=== PATIENT | female | born 2000 | race Hispanic/Latino ===

== ENCOUNTER 2022-01-05 18:10 | Emergency (ER) | payer OTHER ==
[2022-01-05 18:53] LABS: Urine Blood Negative (Negative); Urine Glucose Negative (Negative); Urine Protein Negative (Negative); Urine Specific Gravity >=1.030 (1.005-1.030); Urine pH 6.5 (5.0-7.0)
[2022-01-05 19:10] LABS: Absolute Lymphocytes (CBC) 1.4 K/uL (0.7-4.9); Hematocrit 37.5 % (36.0-45.0); Lymphocytes % 30.6 % (15.3-44.8); MCV 75.2 fL (80-100); MPV 7.7 fL (7.6-11.3); RBC Red Blood Cell Count 4.99 M/uL (3.86-4.86)
[2022-01-05 19:28] LABS: Potassium 3.8 mmol/L (3.5-5.1)
--- NOTE | 2022-01-05 21:07 | RAD REPORT ---
EXAM DESCRIPTION: US - Transvaginal OB - 01/05/2022 8:45 pm CLINICAL HISTORY: VAGINAL BLEEDING COMPARISON: None TECHNIQUE: Endovaginal sonography performed. FINDINGS: Preliminary findings were provided at time of the study. Uterus is retroflexed. In the fundal portion of the endometrial cavity there is a normal shaped gesta tional sac. A single intrauterine gestation is seen. pole is identified with crown-rump length corresponding to 7 week 1 day age. The heart rate is 145 BPM. No intrauterine hematoma or suspicious finding. Both ovaries are identified and unremarkable. No blood or fluid in the cul de sac. IMPRESSION: Single 7 week 1 day IUP. Calculated MINE is 08/23/2022 Heart rate is normal. No intrauterine hematoma or mass. No adnexal abnormality.
[2022-01-05 21:53] LABS: Urine Bacteria <20 /HPF (<20); Urine RBC <5 /HPF (NONE SEEN)
--- NOTE | 2022-01-05 23:28 | EDPHYS ---
Physician Documentation [facility] Name: Harsh Blanco Age: 21 yrs Sex: Female : 2000 Arrival Date: 01/05/2022 Time: 18:13 Bed 13 Private MD: Kristyn Johnson ED Physician Luciano Dillon HPI: 01/05 18:38 This 21 yrs old Female presents to ER via Ambulatory with complaints of pm1 Vaginal Bleeding, + Preg <12wks. 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 pm1 18:38 The patient presents to the emergency department with vaginal bleeding, described as pm1 spotting. The estimated gestational age is 7 weeks. 18:38 course: care: private OB physician, Ultrasound: the patient had an pm1 ultrasound, which was normal. Previous pregnancies: in previous pregnancies patient has had no complications. Associated signs and symptoms: Pertinent negatives: abdominal pain, dysuria, nausea, vomiting. 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 - Social history:: Smoking status: Patient denies any tobacco usage or history of. ROS: 18:38 Constitutional: Negative for fever, chills, and weight loss, Cardiovascular: Negative pm1 for chest pain, palpitations, and edema, Respiratory: Negative for shortness of breath, cough, wheezing, and pleuritic chest pain, Abdomen/GI: Negative for abdominal pain, nausea, vomiting, diarrhea, and constipation. 18:38 MS/Extremity: Negative for injury and deformity, Skin: Negative for injury, rash, and discoloration. 18:38 : Positive for vaginal bleeding, Negative for urinary symptoms. 18:38 All other systems are negative. Exam: 18:38 Constitutional: This is a well developed, well nourished patient who is awake, alert, pm1 and in no acute distress. Head/Face: Normocephalic, atraumatic. 18:38 Back: No spinal tenderness. No costovertebral tenderness. Full range of motion. Skin: Warm, dry with normal turgor. Normal color with no rashes, no lesions, and no evidence of cellulitis. MS/ Extremity: Pulses equal, no cyanosis. Neurovascular intact. Full, normal range of motion. 18:38 Cardiovascular: Exam negative for acute changes, Rate: normal, Rhythm: regular, Pulses: no pulse deficits are appreciated, Heart sounds: normal. 18:38 Respiratory: Exam negative for acute changes, respiratory distress, shortness of breath. 18:38 Abdomen/GI: Inspection: abdomen appears normal, Palpation: abdomen is soft and non-tender, in all quadrants. 18:38 Neuro: Exam negative for acute changes, Orientation: is normal, Motor: is normal, moves all fours. Vital Signs: 18:27 BP 124 / 72; Pulse 77; Resp 16; Temp 99.1; Pulse Ox 99% on R/A; Weight 63.96 kg; Height em1 5 ft. 2 in. (157.48 cm); Pain 0/10; 18:37 BP 115 / 73; Pulse 82; Resp 18; Temp 98.3(T); Pulse Ox 100% on R/A; Weight 63.96 kg; senior Height 5 ft. 2 in. (157.48 cm); 23:00 BP 121 / 57; Pulse 57; Resp 16; Pulse Ox 100% ; vc1 18:37 Body Mass Index 25.79 (63.96 kg, 157.48 cm) senior MDM: 18:38 Patient medically screened. pm1 22:51 Data reviewed: vital signs. Data interpreted: Pulse oximetry: on room air is 100 %. pm1 Interpretation: normal. 23:27 Counseling: I had a detailed discussion with the patient and/or guardian regarding: the pm1 historical points, exam findings, and any diagnostic results supporting the discharge/admit diagnosis, lab results, radiology results, the need for outpatient follow up, an OB/Gyne specialist, to return to the emergency department if symptoms worsen or persist or if there are any questions or concerns that arise at home. 01/05 18:38 Order name: Abo/rh Typing pm1 01/05 18:38 Order name: Basic Metabolic Panel; Complete Time: 19:48 pm1 01/05 18:38 Order name: CBC with Diff; Complete Time: 19:17 pm1 01/05 18:38 Order name: Quantitative Hcg; Complete Time: 19:48 pm1 01/05 18:53 Order name: Urine --Ancillary (enter results) eb 01/05 18:54 Order name: Urine Dipstick-Ancillary; Complete Time: 18:57 EDPA 01/05 18:38 Order name: US Transvaginal Ob; Complete Time: 21:11 pm1 01/05 21:15 Order name: Urine Microscopic Only; Complete Time: 22:33 pm1 01/05 21:40 Order name: Rh Typing EDPA 01/05 21:40 Order name: Antibody Screen EDPA 01/05 21:40 Order name: Fetalscreen EDPA 01/05 21:40 Order name: Cord Rh type EDPA 01/05 21:40 Order name: Rhogam EDPA 01/05 22:27 Order name: ABO/RH no charge; Complete Time: 22:33 EDPA 01/05 18:38 Order name: IV Saline Lock; Complete Time: 19:01 pm1 01/05 18:38 Order name: Labs collected and sent; Complete Time: 19:01 pm1 01/05 18:38 Order name: NPO; Complete Time: 19:01 pm1 01/05 18:38 Order name: Urine Dipstick-Ancillary (obtain specimen); Complete Time: 19:01 pm1 01/05 18:38 Order name: Urine Test (obtain specimen); Complete Time: 19:01 pm1 Administered Medications: 22:55 Drug: RhoGAM (Human) 300 mcg Route: IM; Site: right gluteus; vc1 Disposition Summary: 01/05/22 23:27 Discharge Ordered Location: Home pm1 Problem: new pm1 Symptoms: have improved pm1 Condition: Stable pm1 Diagnosis - Threatened pm1 Followup: pm1 - With: Emergency Department - When: As needed - Reason: Worsening of condition Followup: pm1 - With: Private Physician - When: 2 - 3 days - Reason: Recheck today's complaints, Continuance of care, Re-evaluation by your physician Discharge Instructions: - Discharge Summary Sheet pm1 - Threatened Miscarriage pm1 - Activity Restriction During pm1 Forms: - Medication Reconciliation Form pm1 - Thank You Letter pm1 - Antibiotic Education pm1 - Prescription Opioid Use pm1 Signatures: Dispatcher [employer] EDMS Hernandez Jones NP INTEGRATION PROJECT MANAGER pm1 Au-Stager, Mayela, RN RN senior Calcote, Harriett, RN RN vc1
--- NOTE | 2022-01-05 23:28 | ER ---
Nurse's Notes [facility] Name: Harsh Blanco Age: 21 yrs Sex: Female : 2000 Arrival Date: 01/05/2022 Time: 18:13 Bed 13 Private MD: Kristyn Johnson Diagnosis: Threatened Presentation: 01/05 18:37 Chief complaint: Patient states: pt presented to ed reporting vaginal bleeding. about 7 senior week . Coronavirus screen: Vaccine status: Patient reports being unvaccinated. Ebola Screen: Patient denies travel to an Ebola-affected area in the 21 days before illness onset. Initial Sepsis Screen: Does the patient meet any 2 criteria? No. Patient's initial sepsis screen is negative. Does the patient have a suspected source of infection? No. Patient's initial sepsis screen is negative. Risk Assessment: Do you want to hurt yourself or someone else? Patient reports no desire to harm self or others. Onset of symptoms was January 05, 2022. 18:37 Method Of Arrival: Ambulatory senior 18:37 Acuity: FLORINDA 3 senior Triage Assessment: 18:38 General: Appears in no apparent distress. Behavior is calm, cooperative, Smells of. seniro Pain: Denies pain. : Reports vaginal bleeding that is. 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 - Social history:: Smoking status: Patient denies any tobacco usage or history of. Screenin:00 Abuse screen: Denies threats or abuse. Nutritional screening: No deficits noted. vc1 Tuberculosis screening: No symptoms or risk factors identified. Fall Risk None identified. Assessment: 19:00 General: Appears in no apparent distress. comfortable, Behavior is calm, cooperative, vc1 appropriate for age. 19:00 Pain: Denies pain. Neuro: Level of Consciousness is awake, alert, obeys commands, vc1 Oriented to person, place, time, situation, Appropriate for age. Cardiovascular: No deficits noted. Respiratory: Airway is patent Respiratory effort is even, unlabored, Respiratory pattern is regular, symmetrical. GI: No deficits noted. : Reports vaginal bleeding that is spotty. 21:00 Reassessment: No changes from previously documented assessment. Patient and/or family vc1 updated on plan of care and expected duration. Pain level reassessed. 23:38 Reassessment: Patient and/or family updated on plan of care and expected duration. Pain vc1 level reassessed. Patient is alert, oriented x 3, equal unlabored respirations, skin warm/dry/pink. Patient denies pain at this time. Vital Signs: 18:27 BP 124 / 72; Pulse 77; Resp 16; Temp 99.1; Pulse Ox 99% on R/A; Weight 63.96 kg; Height em1 5 ft. 2 in. (157.48 cm); Pain 0/10; 18:37 BP 115 / 73; Pulse 82; Resp 18; Temp 98.3(T); Pulse Ox 100% on R/A; Weight 63.96 kg; senior Height 5 ft. 2 in. (157.48 cm); 23:00 BP 121 / 57; Pulse 57; Resp 16; Pulse Ox 100% ; vc1 18:37 Body Mass Index 25.79 (63.96 kg, 157.48 cm) senior Vitals: 23:33 Heart Tones 7wks. vc1 ED Course: 18:13 Patient arrived in ED. as 18:14 Kristyn Johnson is Private Physician. as 18:37 [facility] pm1 18:37 Luciano Dillon MD is Attending Physician. pm1 18:38 Triage completed. senior 19:00 Arm band placed on right wrist. vc1 19:01 Initial lab(s) drawn, by ut, sent to lab. Inserted saline lock: 20 gauge in right em1 antecubital area, using aseptic technique. Blood collected. 20:47 Transvaginal Ob In Process Unspecified. EDMS 21:21 Harriett Marroquin, MIGUELANGEL is Primary Nurse. vc1 23:33 No provider procedures requiring assistance completed. IV discontinued, intact, vc1 bleeding controlled, No redness/swelling at site. Pressure dressing applied. Administered Medications: 22:55 Drug: RhoGAM (Human) 300 mcg Route: IM; Site: right gluteus; vc1 Medication: 23:37 VIS not applicable for this client. vc1 Outcome: 23:27 Discharge ordered by . pm1 23:33 Discharged to home ambulatory, with family. vc1 23:33 Condition: good 23:33 Discharge instructions given to patient, Instructed on discharge instructions, follow up and referral plans. pelvis rest until f/u with obgyn 23:40 Patient left the ED. vc1 Signatures: Dispatcher [employer] Ursula Stevenson Eric em1 Hernandez Jones, FREELANCE INTERPRETER/TRANSLATOR FREELANCE INTERPRETER/TRANSLATOR pm1 Mayela Robins RN RN Harriett Castro RN RN vc1
[2022-01-06 00:34] VITALS: TEMP 98.3; O2SAT 100
[2022-01-06 00:36] VITALS: BP 121/57
== END 2022-01-05 23:40 | disposition home or self-care (01) ==
LOC: ER 18:10
DX: O20.0 Threatened abortion (principal); N93.8 Other specified abnormal uterine and vaginal bleeding; Z3A.01 Less than 8 weeks gestation of pregnancy
CPT/HCPCS: 85025; 80048; 36415; 86900; 81025; 86901 ×2; 84702; 76817; 96372; 99284; J2790; 81003; 81015

== ENCOUNTER 2023-02-20 20:39 | Emergency (ER) | payer OTHER ==
--- OUTSIDE RECORDS SUMMARY | 2023-02-20 20:44 | XMS REPORT | Continuity of Care Document ---
:2000 Author Organization [facility] [place] [facility] t Address [address] [facility]. [id number] Care Team Providers Name Role Phone Pcp, Patient Does Not Have A Primary Care Physician [phone] SARIKA LOPEZ Attending Clinician Unavailable SARIKA LOPEZ Attending Clinician Unavailable Doctor Unassigned, [place] Attending Clinician Unavailable GUMARO VIEYRA Attending Clinician Unavailable Nurse, [facility] Attending Clinician Unavailable Gumrao Vieyra MD Attending Clinician PO CHENG Attending Clinician Unavailable Po Cheng MD Attending Clinician Vitor Jimenez CRNA Attending Clinician Pob, Adc Lab Main Attending Clinician Unavailable Luz Mckinley PA-C Attending Clinician LUZ MCKINLEY Attending Clinician Unavailable Ultrasound, Ang-Mfm Attending Clinician Unavailable Zahida Meza MD Attending Clinician ROCIO LANDA Attending Clinician Unavailable TERI DOWNEY Attending Clinician Unavailable PO CHENG Admitting Clinician Unavailable Po Cheng MD Admitting Clinician GUMARO VIEYRA Admitting Clinician Unavailable Gumaro Vieyra MD Admitting Clinician Payers Payer Name Policy Type Policy Number Effective Date Expiration Date Clara [employer] [id number] 2022 00:00:00 [place] [id number] 2019 2019 00:00:00 00:00:00 Problems Condition Condition Condition Status Onset Resolution Last Treating Co mments Source Name Details Category Date Date Treatment Clinician Date Vaginal Vaginal Disease Active Univers discharge discharge 4-03 ity of 00:00: [place] [address] Medical Branch BMI BMI Disease Active Univers 25.0-25.9, 25.0-25.9, 4-03 it y of adult adult 00:00: [place] [address] Medical Branch Vaginal Vaginal Disease Active Univers bleeding bleeding 7-08 [place] Short Short Disease Active Univers interval interval 6-27 ity of between between 00:00: [place] pregnancie pregnancie 00 Me dical s s Branch affecting affecting , , antepartum antepartum High risk High risk Disease Active Uni vers , , 6-27 [place] Rh Rh Disease Active Univers negative negative 7-19 ity of state in state in 00:00: [place] antepartum antepartum 00 Me dical period period Branch Encounter Encounter Disease Active Uni vers for for 2-06 [place] of [place] arnulfo arnulfo 00 Medical management management Br anch , , unspecifie unspecifie d type d type Allergies, Adverse Reactions, Alerts Allergy Allergy Status Severity Reaction(s) Onset Inactive Treating Comm ents Source Name Type Date Date Clinician NO KNOWN Drug Active Univers ALLERGIE Class ity of S [facility] Social History Social Habit Start Date Stop Date Quantity Comments Source ASSERTION 2021-11-30 [facility] 00:00:00 [facility] History SDMT University o f Alcohol Comment [place] [facility] Branch History [facility] University o f Alcohol Std [place] Medical Drinks Branch History [facility] o f Alcohol Binge [place] Medic al Branch Exposure to 2022-09-25 2022-10-05 Not sure [facility] SARS-CoV-2 00:00:00 15:12:00 [facility] (event) Branch Tobacco use and 2022-10-05 2022-10-05 Smokeless tobacco Un iversity of exposure 00:00:00 00:00:00 non-user [facility] Alcohol intake 2022-10-05 2022-10-05 Ex-drinker University of 00:00:00 00:00:00 (finding) [facility] History SDOH 2019-06-19 2019-06-19 1 [place] o f Alcohol Frequency 00:00:00 00:00:00 [facility] Sex Assigned At [address] [facility] 00:[facility]:00 00:00:00 [facility] Smoking Status Start Date Stop Date Source Never smoked tobacco [facility] Medications Ordered Filled Start Stop Current Ordering Indication Dosage Frequency Signature Comments Components Source Medication Medication Date Date Medication? Clinician (SIG) Name Name lactic Yes [id number] 1{appli Insert 1 Univers acid-citric 4-03 catorfu Applicator ity of -potassium 00:00: l} ful into [place] (PHEXXI) 00 vagina as Medica l 1.8-1-0.4 % needed Branch Gel (sex). lactic Yes [id number] 1{appli Insert 1 Univers acid-citric 4-03 catorfu Applicator ity of -potassium 00:00: l} ful into [place] (PHEXXI) 00 vagina as Medica l 1.8-1-0.4 % needed Branch Gel (sex). lactic Yes [id number] 1{appli Insert 1 Univers acid-citric 7-14 catorfu Applicator ity of -potassium 00:00: l} ful into [place] (PHEXXI) 00 vagina as Medica l 1.8-1-0.4 % needed Branch Gel (sex). lactic Yes [id number] 1{appli Insert 1 Univers acid-citric 7-14 catorfu Applicator ity of -potassium 00:00: l} ful into [place] (PHEXXI) 00 vagina as Medica l 1.8-1-0.4 % needed Branch Gel (sex). lactic Yes [id number] 1{appli Insert 1 Univers acid-citric 7-14 catorfu Applicator ity of -potassium 00:00: l} ful into [place] (PHEXXI) 00 vagina as Medica l 1.8-1-0.4 % needed Branch Gel (sex). lactic Yes [id number] 1{appli Insert 1 Univers acid-citric 7-14 catorfu Applicator ity of -potassium 00:00: l} ful into [place] (PHEXXI) 00 vagina as Medica l 1.8-1-0.4 % needed Branch Gel (sex). lactic Yes [id number] 1{appli Insert 1 Univers acid-citric 7-14 catorfu Applicator ity of -potassium 00:00: l} ful into [place] (PHEXXI) 00 vagina as Medica l 1.8-1-0.4 % needed Branch Gel (sex). lactic 2022- No [id number] 1{appli Insert 1 Univers acid-citric 7-14 04-03 catorfu Applicator ity of -potassium 00:00: 00:00 [place]PHEXXI[place] :00 vagina as Medica l 1.8-1-0.4 % needed Branch Gel (sex). lactic 2022- No [id number] 1{appli Insert 1 Univers acid-citric 7-14 04-03 catorfu Applicator ity of -potassium 00:00: 00:00 l[place] (PHEXXI[place] 00 :00 vagina as Medica l 1.8-1-0.4 % needed Branch Gel (sex). PNV Yes [id number] Take 1 Univers 102-iron-fo 6-27 TAB-CAP/M2 it y of late-dha 00:00: by mouth [place] (VITAFOL FE 00 daily. Medica l PLUS) 90 mg Branch iron- 1 mg-200 mg Cap PNV 0 Yes [id number] Take 1 Univers 102-iron-fo 6-27 TAB-CAP/M2 it y of late-dha 00:00: by mouth [place] (VITAFOL FE 00 daily. Medica l PLUS) 90 mg Branch iron- 1 mg-200 mg Cap PNV 0 Yes [id number] Take 1 Univers 102-iron-fo 6-27 TAB-CAP/M2 it y of late-dha 00:00: by mouth [place] (VITAFOL FE 00 daily. Medica l PLUS) 90 mg Branch iron- 1 mg-200 mg Cap PNV 0 Yes [id number] Take 1 Univers 102-iron-fo 6-27 TAB-CAP/M2 it y of late-dha 00:00: by mouth [place] (VITAFOL FE 00 daily. Medica l PLUS) 90 mg Branch iron- 1 mg-200 mg Cap PNV 2021-0 Yes [id number] Take 1 Univers 102-iron-fo 6-27 TAB-CAP/M2 it y of late-dha 00:00: by mouth [place] (VITAFOL FE 00 daily. Medica l PLUS) 90 mg Branch iron- 1 mg-200 mg Cap PNV 2021-0 Yes [id number] Take 1 Univers 102-iron-fo 6-27 TAB-CAP/M2 it y of late-dha 00:00: by mouth [place] (VITAFOL FE 00 daily. Medica l PLUS) 90 mg Branch iron- 1 mg-200 mg Cap PNV 2021-0 Yes [id number] Take 1 Univers 102-iron-fo 6-27 TAB-CAP/M2 it y of late-dha 00:00: by mouth [place] (VITAFOL FE 00 daily. Medica l PLUS) 90 mg Branch iron- 1 mg-200 mg Cap PNV 2021-0 Yes [id number] Take 1 Univers 102-iron-fo 6-27 TAB-CAP/M2 it y of late-dha 00:00: by mouth [place] (VITAFOL FE 00 daily. Medica l PLUS) 90 mg Branch iron- 1 mg-200 mg Cap Immunizations Ordered Immunization Filled Immunization Date Status Commen ts Source Name Name Rho (d) Immune 2021-08-13 Completed University of Globulin 00:00:00 [facility] Rho (d) Immune 2021-08-13 Completed University of Globulin 00:00:00 [facility] Rho (d) Immune 2021-08-13 Completed University of Globulin 00:00:00 [facility] Rho (d) Immune 2021-08-13 Completed University of Globulin 00:00:00 [facility] Rho (d) Immune 2021-08-13 Completed University of Globulin 00:00:00 [facility] Rho (d) Immune 2021-08-13 Completed University of Globulin 00:00:00 [facility] Rho (d) Immune 2021-08-13 Completed University of Globulin 00:00:00 [facility] Rho (d) Immune 2021-08-13 Completed University of Globulin 00:00:00 [facility] TDAP 2021-05-27 Completed University of 00:00:00 [place] [facility] Rho (d) Immune 2021-05-27 Completed University of Globulin 00:00:00 [facility] TDAP 2021-05-27 Completed University of 00:00:00 [facility] Branch Rho (d) Immune 2021-05-27 Completed University of Globulin 00:00:00 [facility] Branch TDAP 2021-05-27 Completed University of 00:00:00 [facility] Branch Rho (d) Immune 2021-05-27 Completed University of Globulin 00:00:00 [facility] Branch TDAP 2021-05-27 Completed University of 00:00:00 [facility] Branch Rho (d) Immune 2021-05-27 Completed University of Globulin 00:00:00 [facility] TDAP 2021-05-27 Completed University of 00:00:00 [facility] Rho (d) Immune 2021-05-27 Completed University of Globulin 00:00:00 [facility] TDAP 2021-05-27 Completed University of 00:00:00 [facility] Rho (d) Immune 2021-05-27 Completed University of Globulin 00:00:00 [facility] TDAP 2021-05-27 Completed University of 00:00:00 [facility] Branch Rho (d) Immune 2021-05-27 Completed University of Globulin 00:00:00 [facility] TDAP 2021-05-27 Completed University of 00:00:00 [facility] Branch Rho (d) Immune 2021-05-27 Completed University of Globulin 00:00:00 [facility] Rho (d) Immune 2021-01-22 Completed University of Globulin 00:00:00 [facility] Branch Rho (d) Immune 2021-01-22 Completed University of Globulin 00:00:00 [facility] Branch Rho (d) Immune 2021-01-22 Completed University of Globulin 00:00:00 [facility] Branch Rho (d) Immune 2021-01-22 Completed University of Globulin 00:00:00 [facility] Branch Rho (d) Immune 2021-01-22 Completed University of Globulin 00:00:00 [facility] Branch Rho (d) Immune 2021-01-22 Completed University of Globulin 00:00:00 [facility] Branch Rho (d) Immune 2021-01-22 Completed University of Globulin 00:00:00 [facility] Branch Rho (d) Immune 2021-01-22 Completed University of Globulin 00:00:00 [facility] Rho (d) Immune 2019-06-23 Completed University of Globulin 00:00:00 [facility] Rho (d) Immune 2019-06-23 Completed University of Globulin 00:00:00 [facility] Rho (d) Immune 2019-06-23 Completed University of Globulin 00:00:00 [facility] Rho (d) Immune 2019-06-23 Completed University of Globulin 00:00:00 [facility] Rho (d) Immune 2019-06-23 Completed University of Globulin 00:00:00 [facility] Rho (d) Immune 2019-06-23 Completed University of Globulin 00:00:00 [facility] Rho (d) Immune 2019-06-23 Completed University of Globulin 00:00:00 [facility] Rho (d) Immune 2019-06-23 Completed University of Globulin 00:00:00 [facility] Influenza Virus 2019-06-19 Completed Universit y of Vaccine Quad .5 mL IM 00:00:00 [place] [facility] 6+ MO Branch Influenza Virus 2019-06-19 Completed Universit y of Vaccine 00:00:00 [facility] Influenza Virus 2019-06-19 Completed Universit y of Vaccine [place] .5 mL IM 00:00:00 [place] 6+ MO Branch Influenza Virus 2019-06-19 Completed Universit y of Vaccine 00:00:00 [facility] Influenza Virus 2019-06-19 Completed Universit y of Vaccine Quad .5 mL IM 00:00:00 [place] 6+ MO Branch Influenza Virus 2019-06-19 Completed Universit y of Vaccine 00:00:00 [facility] Influenza Virus 2019-06-19 Completed Universit y of Vaccine Quad .5 mL IM 00:00:00 [place] [facility] 6+ MO Branch Influenza Virus 2019-06-19 Completed Universit y of Vaccine 00:00:00 [facility] Influenza Virus 2019-06-19 Completed Universit y of Vaccine Quad .5 mL IM 00:00:00 [place] [facility] 6+ MO Branch Influenza Virus 2019-06-19 Completed Universit y of Vaccine 00:00:00 [facility] Influenza Virus 2019-06-19 Completed Universit y of Vaccine Quad .5 mL IM 00:00:00 [place] 6+ MO Branch Influenza Virus 2019-06-19 Completed Universit y of Vaccine 00:00:00 [facility] Influenza Virus 2019-06-19 Completed Universit y of Vaccine Quad .5 mL IM 00:00:00 [place] [facility] 6+ MO Branch Influenza Virus 2019-06-19 Completed Universit y of Vaccine 00:00:00 [facility] Influenza Virus 2019-06-19 Completed Universit y of Vaccine Quad .5 mL IM 00:00:00 [place] [facility] 6+ MO Branch Influenza Virus 2019-06-19 Completed Universit y of Vaccine 00:00:00 [facility] HPV 2017-02-11 Completed University of 00:00:00 [facility] Meningococcal 2017-02-11 Completed University of Polysaccharide 00:00:00 [place] Medi anna (groups A, C, Y and Branc h W-135) conjugate vaccine (MCV4P) HPV 2017-02-11 Completed University of 00:00:00 [facility] Meningococcal 2017-02-11 Completed University of Polysaccharide 00:00:00 [place] Medi anna (groups A, C, Y and Branc h W-135) conjugate vaccine (MCV4P) HPV 2017-02-11 Completed University of 00:00:00 [facility] Meningococcal 2017-02-11 Completed University of Polysaccharide 00:00:00 [place] Medi anna (groups A, C, Y and Branc h W-135) conjugate vaccine (MCV4P) HPV 2017-02-11 Completed University of 00:00:00 [facility] Meningococcal 2017-02-11 Completed University of Polysaccharide 00:00:00 [place] Medi anna (groups A, C, Y and Branc h W-135) conjugate vaccine (MCV4P) HPV 2017-02-11 Completed University of 00:00:00 [facility] Meningococcal 2017-02-11 Completed University of Polysaccharide 00:00:00 [place] Medi anna (groups A, C, Y and Branc h W-135) conjugate vaccine (MCV4P) HPV 2017-02-11 Completed University of 00:00:00 [facility] Meningococcal 2017-02-11 Completed University of Polysaccharide 00:00:00 [place] Medi anna (groups A, C, Y and Branc h W-135) conjugate vaccine (MCV4P) HPV9 2017-02-11 Completed University of 00:00:00 [facility] HPV 2017-02-11 Completed University of 00:00:00 [facility] Meningococcal 2017-02-11 Completed University of Polysaccharide 00:00:00 [place] Medi anna (groups A, C, Y and Branc h W-135) conjugate vaccine (MCV4P) HPV9 2017-02-11 Completed University of 00:00:00 [facility] HPV 2017-02-11 Completed University of 00:00:00 [facility] Meningococcal 2017-02-11 Completed University of Polysaccharide 00:00:00 [place] Medi anna (groups A, C, Y and Branc h W-135) conjugate vaccine (MCV4P) HPV9 2017-02-11 Completed University of 00:00:00 [facility] HPV 2011-06-04 Completed University of 00:00:00 [facility] Influenza Virus 2011-06-04 Completed Universit y of Vaccine 00:00:00 [facility] Meningococcal 2011-06-04 Completed University of Polysaccharide 00:00:00 [place] Medi anna (groups A, C, Y and Branc h W-135) conjugate vaccine (MCV4P) TDAP 2011-06-04 Completed University of 00:00:00 [facility] HPV 2011-06-04 Completed University of 00:00:00 [facility] Influenza Virus 2011-06-04 Completed Universit y of Vaccine 00:00:00 [facility] Meningococcal 2011-06-04 Completed University of Polysaccharide 00:00:00 [place] Medi anna (groups A, C, Y and Branc h W-135) conjugate vaccine (MCV4P) TDAP 2011-06-04 Completed University of 00:00:00 [facility] HPV 2011-06-04 Completed University of 00:00:00 [facility] Influenza Virus 2011-06-04 Completed Universit y of Vaccine 00:00:00 [facility] Meningococcal 2011-06-04 Completed University of Polysaccharide 00:00:00 [place] Medi anna (groups A, C, Y and Branc h W-135) conjugate vaccine (MCV4P) TDAP 2011-06-04 Completed University of 00:00:00 [facility] HPV 2011-06-04 Completed University of 00:00:00 [facility] Influenza Virus 2011-06-04 Completed Universit y of Vaccine 00:00:00 [facility] Meningococcal 2011-06-04 Completed University of Polysaccharide 00:00:00 [place] Medi anna (groups A, C, Y and Branc h W-135) conjugate vaccine (MCV4P) TDAP 2011-06-04 Completed University of 00:00:00 [facility] HPV 2011-06-04 Completed University of 00:00:00 [facility] Influenza Virus 2011-06-04 Completed Universit y of Vaccine 00:00:00 [facility] Meningococcal 2011-06-04 Completed University of Polysaccharide 00:00:00 [place] Medi anna (groups A, C, Y and Branc h W-135) conjugate vaccine (MCV4P) TDAP 2011-06-04 Completed University of 00:00:00 [facility] HPV 2011-06-04 Completed University of 00:00:00 [facility] Influenza Virus 2011-06-04 Completed Universit y of Vaccine 00:00:00 [facility] Meningococcal 2011-06-04 Completed University of Polysaccharide 00:00:00 [place] Medi anna (groups A, C, Y and Branc h W-135) conjugate vaccine (MCV4P) TDAP 2011-06-04 Completed University of 00:00:00 [facility] Influenza Virus 2011-06-04 Completed Universit y of Vaccine Nasal 00:00:00 [facility] HPV 2011-06-04 Completed University of 00:00:00 [facility] Influenza Virus 2011-06-04 Completed Universit y of Vaccine 00:00:00 [facility] Meningococcal 2011-06-04 Completed University of Polysaccharide 00:00:00 [place] Medi anna (groups A, C, Y and Branc h W-135) conjugate vaccine (MCV4P) TDAP 2011-06-04 Completed University of 00:00:00 [facility] Influenza Virus 2011-06-04 Completed Universit y of Vaccine Nasal 00:00:00 [facility] HPV 2011-06-04 Completed University of 00:00:00 [facility] Influenza Virus 2011-06-04 Completed Universit y of Vaccine 00:00:00 [facility] Meningococcal 2011-06-04 Completed University of Polysaccharide 00:00:00 [place] Medi anna (groups A, C, Y and Branc h W-135) conjugate vaccine (MCV4P) TDAP 2011-06-04 Completed University of 00:00:00 [facility] Influenza Virus 2011-06-04 Completed Universit y of Vaccine Nasal 00:00:00 [facility] Influenza Virus 2010-05-20 Completed Universit y of Vaccine 00:00:00 [facility] Influenza Virus 2010-05-20 Completed Universit y of Vaccine 00:00:00 [facility] Influenza Virus 2010-05-20 Completed Universit y of Vaccine 00:00:00 [facility] Influenza Virus 2010-05-20 Completed Universit y of Vaccine 00:00:00 [facility] Influenza Virus 2010-05-20 Completed Universit y of Vaccine 00:00:00 [facility] Influenza Virus 2010-05-20 Completed Universit y of Vaccine 00:00:00 [facility] Influenza Virus 2010-05-20 Completed Universit y of Vaccine Nasal 00:00:00 [facility] Influenza Virus 2010-05-20 Completed Universit y of Vaccine 00:00:00 [facility] Influenza Virus 2010-05-20 Completed Universit y of Vaccine Nasal 00:00:00 [facility] Influenza Virus 2010-05-20 Completed Universit y of Vaccine 00:00:00 [facility] Influenza Virus 2010-05-20 Completed Universit y of Vaccine Nasal 00:00:00 [facility] Varicella 2010-04-23 Completed University of (varivax)(chicken 00:00:00 [place] M [facility]ical pox) Branch Varicella 2010-04-23 Completed University of (varivax)(chicken 00:00:00 [place] M [facility] pox) Branch Varicella 2010-04-23 Completed University of (varivax)(chicken 00:00:00 [place] M edical pox) Branch Varicella 2010-04-23 Completed University of (varivax)(chicken 00:00:00 [place] M edical pox) Branch Varicella 2010-04-23 Completed University of (varivax)(chicken 00:00:00 [place] M edical pox) Branch Varicella 2010-04-23 Completed University of (varivax)(chicken 00:00:00 [place] M edical pox) Branch Varicella 2010-04-23 Completed University of (varivax)(chicken 00:00:00 [place] M edical pox) Branch Varicella 2010-04-23 Completed University of (varivax)(chicken 00:00:00 [place] M edical pox) Branch Influenza Virus 2009-04-30 Completed Universit y of Vaccine 00:00:00 [facility] Influenza Virus 2009-04-30 Completed Universit y of Vaccine 00:00:00 [facility] Influenza Virus 2009-04-30 Completed Universit y of Vaccine 00:00:00 [facility] Influenza Virus 2009-04-30 Completed Universit y of Vaccine 00:00:00 [facility] Influenza Virus 2009-04-30 Completed Universit y of Vaccine 00:00:00 [facility] Influenza Virus 2009-04-30 Completed Universit y of Vaccine 00:00:00 [facility] Influenza Virus 2009-04-30 Completed Universit y of Vaccine - Whole 00:00:00 [facility] Influenza Virus 2009-04-30 Completed Universit y of Vaccine 00:00:00 [facility] Influenza Virus 2009-04-30 Completed Universit y of Vaccine - Whole 00:00:00 [facility] Influenza Virus 2009-04-30 Completed Universit y of Vaccine 00:00:00 [facility] Influenza Virus 2009-04-30 Completed Universit y of Vaccine - Whole 00:00:00 [facility] Influenza Virus 2008-08-06 Completed Universit y of Vaccine 00:00:00 [facility] Influenza Virus 2008-08-06 Completed Universit y of Vaccine 00:00:00 [facility] Influenza Virus 2008-08-06 Completed Universit y of Vaccine 00:00:00 [facility] Influenza Virus 2008-08-06 Completed Universit y of Vaccine 00:00:00 [facility] Influenza Virus 2008-08-06 Completed Universit y of Vaccine 00:00:00 [facility] Influenza Virus 2008-08-06 Completed Universit y of Vaccine 00:00:00 [facility] Flu Trivalent 2008-08-06 Completed University of 00:00:00 [facility] Influenza Virus 2008-08-06 Completed Universit y of Vaccine 00:00:00 [facility] Flu Trivalent 2008-08-06 Completed University of 00:00:00 [facility] Influenza Virus 2008-08-06 Completed Universit y of Vaccine 00:00:00 [facility] Flu Trivalent 2008-08-06 Completed University of 00:00:00 [facility] HEPATITIS A 2005-06-03 Completed [facility] 00:00:00 [facility] HEPATITIS A 2005-06-03 Completed University of 00:00:00 [facility] HEPATITIS A 2005-06-03 Completed University of 00:00:00 [facility] HEPATITIS A 2005-06-03 Completed University of 00:00:00 [facility] HEPATITIS A 2005-06-03 Completed University of 00:00:00 [facility] HEPATITIS A 2005-06-03 Completed University of 00:00:00 [facility] HEPATITIS A 2005-06-03 Completed University of 00:00:00 [facility] HEPATITIS A 2005-06-03 Completed University of 00:00:00 [facility] DTAP 2004-10-01 Completed University of 00:00:00 [facility] HEPATITIS A 2004-10-01 Completed University of 00:00:00 [facility] MMR 2004-10-01 Completed University of 00:00:00 [facility] Polio (IPV/OPV) 2004-10-01 Completed Universit y of 00:00:00 [facility] DTAP 2004-10-01 Completed University of 00:00:00 [facility] HEPATITIS A 2004-10-01 Completed University of 00:00:00 [facility] MMR 2004-10-01 Completed University of 00:00:00 [facility] Polio (IPV/OPV) 2004-10-01 Completed Universit y of 00:00:00 [facility] DTAP 2004-10-01 Completed University of 00:00:00 [facility] HEPATITIS A 2004-10-01 Completed University of 00:00:00 [facility] MMR 2004-10-01 Completed University of 00:00:00 [facility] Polio (IPV/OPV) 2004-10-01 Completed Universit y of 00:00:00 [facility] DTAP 2004-10-01 Completed University of 00:00:00 [facility] HEPATITIS A 2004-10-01 Completed University of 00:00:00 [facility] MMR 2004-10-01 Completed University of 00:00:00 [facility] Polio (IPV/OPV) 2004-10-01 Completed Universit y of 00:00:00 [facility] DTAP 2004-10-01 Completed University of 00:00:00 [facility] HEPATITIS A 2004-10-01 Completed University of 00:00:00 [facility] MMR 2004-10-01 Completed University of 00:00:00 [facility] Polio (IPV/OPV) 2004-10-01 Completed Universit y of 00:00:00 [facility] DTAP 2004-10-01 Completed University of 00:00:00 [facility] HEPATITIS A 2004-10-01 Completed University of 00:00:00 [facility] MMR 2004-10-01 Completed University of 00:00:00 [facility] Polio (IPV/OPV) 2004-10-01 Completed Universit y of 00:00:00 [facility] DTaP, Unspecified 2004-10-01 Completed Univers ity of Formulation 00:00:00 [facility] IPV 2004-10-01 Completed University of 00:00:00 [facility] DTAP 2004-10-01 Completed University of 00:00:00 [facility] HEPATITIS A 2004-10-01 Completed University of 00:00:00 [facility] MMR 2004-10-01 Completed University of 00:00:00 [facility] Polio (IPV/OPV) 2004-10-01 Completed Universit y of 00:00:00 [facility] DTaP, Unspecified 2004-10-01 Completed Univers ity of Formulation 00:00:00 [facility] IPV 2004-10-01 Completed University of 00:00:00 [facility] DTAP 2004-10-01 Completed University of 00:00:00 [facility] HEPATITIS A 2004-10-01 Completed University of 00:00:00 [facility] MMR 2004-10-01 Completed University of 00:00:00 [facility] Polio (IPV/OPV) 2004-10-01 Completed Universit y of 00:00:00 [facility] DTaP, Unspecified 2004-10-01 Completed Univers ity of Formulation 00:00:00 [facility] IPV 2004-10-01 Completed University of 00:00:00 [facility] DTAP 2001-10-03 Completed University of 00:00:00 [facility] HIB 4 Dose Schedule 2001-10-03 Completed Unive rsity of 00:00:00 [facility] Varicella 2001-10-03 Completed University of (varivax)(chicken 00:00:00 [place] [facility] DTAP 2001-10-03 Completed University of 00:00:00 [facility] HIB 4 Dose Schedule 2001-10-03 Completed Unive rsity of 00:00:00 [facility] Varicella 2001-10-03 Completed University of (varivax)(chicken 00:00:00 [place] [facility] DTAP 2001-10-03 Completed [facility] of 00:00:00 [facility] HIB 4 Dose Schedule 2001-10-03 Completed Unive rsity of 00:00:00 [facility] Varicella 2001-10-03 Completed University of (varivax)(chicken 00:00:00 [place] [facility] DTAP 2001-10-03 Completed University of 00:00:00 [facility] HIB 4 Dose Schedule 2001-10-03 Completed Unive rsity of 00:00:00 [facility] Varicella 2001-10-03 Completed University of (varivax)(chicken 00:00:00 [place] [facility] DTAP 2001-10-03 Completed University of 00:00:00 [facility] HIB 4 Dose Schedule 2001-10-03 Completed Unive rsity of 00:00:00 [facility] Varicella 2001-10-03 Completed University of (varivax)(chicken 00:00:00 [place] [facility] DTAP 2001-10-03 Completed University of 00:00:00 [facility] HIB 4 Dose Schedule 2001-10-03 Completed Unive rsity of 00:00:00 [facility] Varicella 2001-10-03 Completed University of (varivax)(chicken 00:00:00 [place] [facility] DTaP, Unspecified 2001-10-03 Completed Univers ity of Formulation 00:00:00 [facility] DTAP 2001-10-03 Completed University of 00:00:00 [facility] HIB 4 Dose Schedule 2001-10-03 Completed Unive rsity of 00:00:00 [facility] Varicella 2001-10-03 Completed University of (varivax)(chicken 00:00:00 [place] [facility] DTaP, Unspecified 2001-10-03 Completed Univers ity of Formulation 00:00:00 [facility] DTAP 2001-10-03 Completed University of 00:00:00 [facility] HIB 4 Dose Schedule 2001-10-03 Completed Unive rsity of 00:00:00 [facility] Varicella 2001-10-03 Completed University of (varivax)(chicken 00:00:00 [place] [facility] DTaP, Unspecified 2001-10-03 Completed Univers ity of Formulation 00:00:00 [facility] Hep B, Adol or Pedi 2001-04-18 Completed Unive rsity of Dosage 00:00:00 [facility] MMR 2001-04-18 Completed University of 00:00:00 [facility] Polio (IPV/OPV) 2001-04-18 Completed Universit y of 00:00:00 [facility] Hep B, Adol or Pedi 2001-04-18 Completed Unive rsity of Dosage 00:00:00 [facility] MMR 2001-04-18 Completed University of 00:00:00 [facility] Polio (IPV/OPV) 2001-04-18 Completed Universit y of 00:00:00 [facility] Hep B, Adol or Pedi 2001-04-18 Completed Unive rsity of Dosage 00:00:00 [facility] MMR 2001-04-18 Completed [facility] of 00:00:00 [facility] Polio (IPV/OPV) 2001-04-18 Completed Universit y of 00:00:00 [facility] Hep B, Adol or Pedi 2001-04-18 Completed Unive rsity of Dosage 00:00:00 [facility] MMR 2001-04-18 Completed University of 00:00:00 [facility] Polio (IPV/OPV) 2001-04-18 Completed Universit y of 00:00:00 [facility] Hep B, Adol or Pedi 2001-04-18 Completed Unive rsity of Dosage 00:00:00 [facility] MMR 2001-04-18 Completed University of 00:00:00 [facility] Polio (IPV/OPV) 2001-04-18 Completed Universit y of 00:00:00 [facility] Hep B, Adol or Pedi 2001-04-18 Completed Unive rsity of Dosage 00:00:00 [facility] MMR 2001-04-18 Completed University of 00:00:00 [facility] Polio (IPV/OPV) 2001-04-18 Completed Universit y of 00:00:00 [facility] IPV 2001-04-18 Completed University of 00:00:00 [facility] Hep B, Adol or Pedi 2001-04-18 Completed Unive rsity of Dosage 00:00:00 [facility] MMR 2001-04-18 Completed University of 00:00:00 [facility] Polio (IPV/OPV) 2001-04-18 Completed Universit y of 00:00:00 [facility] IPV 2001-04-18 Completed [facility] of 00:00:00 [facility] Hep B, Adol or Pedi 2001-04-18 Completed Unive rsity of Dosage 00:00:00 [facility] MMR 2001-04-18 Completed [facility] of 00:00:00 [facility] Polio (IPV/OPV) 2001-04-18 Completed Universit y of 00:00:00 [facility] IPV 2001-04-18 Completed [facility] of 00:00:00 [facility] DTAP 2000 Completed University of 00:00:00 [facility] HIB 4 Dose Schedule 2000 Completed Unive rsity of 00:00:00 [facility] DTAP 2000 Completed University of 00:00:00 [facility] HIB 4 Dose Schedule 2000 Completed Unive rsity of 00:00:00 [facility] DTAP 2000 Completed University of 00:00:00 [facility] HIB 4 Dose Schedule 2000 Completed Unive rsity of 00:00:00 [facility] DTAP 2000 Completed University of 00:00:00 [facility] HIB 4 Dose Schedule 2000 Completed Unive rsity of 00:00:00 [facility] DTAP 2000 Completed University of 00:00:00 [facility] HIB 4 Dose Schedule 2000 Completed Unive rsity of 00:00:00 [facility] DTAP 2000 Completed University of 00:00:00 [facility] HIB 4 Dose Schedule 2000 Completed Unive rsity of 00:00:00 [facility] DTaP, Unspecified 2000 Completed Univers ity of Formulation 00:00:00 [facility] DTAP 2000 Completed University of 00:00:00 [facility] HIB 4 Dose Schedule 2000 Completed Unive rsity of 00:00:00 [facility] DTaP, Unspecified 2000 Completed Univers ity of Formulation 00:00:00 [facility] DTAP 2000 Completed University of 00:00:00 [facility] HIB 4 Dose Schedule 2000 Completed Unive rsity of 00:00:00 [facility] DTaP, Unspecified 2000 Completed Univers ity of Formulation 00:00:00 [facility] DTAP 2000 Completed University of 00:00:00 [facility] HIB 4 Dose Schedule 2000 Completed Unive rsity of 00:00:00 [facility] Hep B, Adol or Pedi 2000 Completed Unive rsity of Dosage 00:00:00 [facility] Polio (IPV/OPV) 2000 Completed Universit y of 00:00:00 [facility] DTAP 2000 Completed [facility] of 00:00:00 [facility] HIB 4 Dose Schedule 2000 Completed Unive rsity of 00:00:00 [facility] Hep B, Adol or Pedi 2000 Completed Unive rsity of Dosage 00:00:00 [facility] Polio (IPV/OPV) 2000 Completed Universit y of 00:00:00 [facility] DTAP 2000 Completed [facility] of 00:00:00 [facility] HIB 4 Dose Schedule 2000 Completed Unive rsity of 00:00:00 [facility] Hep B, Adol or Pedi 2000 Completed Unive rsity of Dosage 00:00:00 [facility] Polio (IPV/OPV) 2000 Completed Universit y of 00:00:00 [facility] DTAP 2000 Completed [facility] of 00:00:00 [facility] HIB 4 Dose Schedule 2000 Completed Unive rsity of 00:00:00 [facility] Hep B, Adol or Pedi 2000 Completed Unive rsity of Dosage 00:00:00 [facility] Polio (IPV/OPV) 2000 Completed Universit y of 00:00:00 [facility] DTAP 2000 Completed [facility] of 00:00:00 [facility] HIB 4 Dose Schedule 2000 Completed Unive rsity of 00:00:00 [facility] Hep B, Adol or Pedi 2000 Completed Unive rsity of Dosage 00:00:00 [facility] Polio (IPV/OPV) 2000 Completed Universit y of 00:00:00 [facility] DTAP 2000 Completed [facility] of 00:00:00 [facility] HIB 4 Dose Schedule 2000 Completed Unive rsity of 00:00:00 [facility] Hep B, Adol or Pedi 2000 Completed Unive rsity of Dosage 00:00:00 [facility] Polio (IPV/OPV) 2000 Completed Universit y of 00:00:00 [facility] DTaP, Unspecified 2000 Completed Univers ity of Formulation 00:00:00 [facility] IPV 2000 Completed [facility] of 00:00:00 [facility] DTAP 2000 Completed [facility] of 00:00:00 [facility] HIB 4 Dose Schedule 2000 Completed Unive rsity of 00:00:00 [facility] Hep B, Adol or Pedi 2000 Completed Unive rsity of Dosage 00:00:00 [facility] Polio (IPV/OPV) 2000 Completed Universit y of 00:00:00 [facility] DTaP, Unspecified 2000 Completed Univers ity of Formulation 00:00:00 [facility] IPV 2000 Completed [facility] of 00:00:00 [facility] DTAP 2000 Completed [facility] of 00:00:00 [facility] HIB 4 Dose Schedule 2000 Completed Unive rsity of 00:00:00 [facility] Hep B, Adol or Pedi 2000 Completed Unive rsity of Dosage 00:00:00 [facility] Polio (IPV/OPV) 2000 Completed Universit y of 00:00:00 [facility] DTaP, Unspecified 2000 Completed Univers ity of Formulation 00:00:00 [facility] IPV 2000 Completed [facility] of 00:00:00 [facility] DTAP 2000 Completed [facility] of 00:00:00 [facility] HIB 4 Dose Schedule 2000 Completed Unive rsity of 00:00:00 [facility] Hep B, Adol or Pedi 2000 Completed Unive rsity of Dosage 00:00:00 [facility] Polio (IPV/OPV) 2000 Completed Universit y of 00:00:00 [facility] DTAP 2000 Completed [facility] of 00:00:00 [facility] HIB 4 Dose Schedule 2000 Completed Unive rsity of 00:00:00 [facility] Hep B, Adol or Pedi 2000 Completed Unive rsity of Dosage 00:00:00 [facility] Polio (IPV/OPV) 2000 Completed Universit y of 00:00:00 [facility] DTAP 2000 Completed [facility] of 00:00:00 [facility] HIB 4 Dose Schedule 2000 Completed Unive rsity of 00:00:00 [facility] Hep B, Adol or Pedi 2000 Completed Unive rsity of Dosage 00:00:00 [facility] Polio (IPV/OPV) 2000 Completed Universit y of 00:00:00 [facility] DTAP 2000 Completed [facility] of 00:00:00 [facility] HIB 4 Dose Schedule 2000 Completed Unive rsity of 00:00:00 [facility] Hep B, Adol or Pedi 2000 Completed Unive rsity of Dosage 00:00:00 [facility] Polio (IPV/OPV) 2000 Completed Universit y of 00:00:00 [facility] DTAP 2000 Completed [facility] of 00:00:00 [facility] HIB 4 Dose Schedule 2000 Completed Unive rsity of 00:00:00 [facility] Hep B, Adol or Pedi 2000 Completed Unive rsity of Dosage 00:00:00 [facility] Polio (IPV/OPV) 2000 Completed Universit y of 00:00:00 [facility] DTAP 2000 Completed [facility] of 00:00:00 [facility] HIB 4 Dose Schedule 2000 Completed Unive rsity of 00:00:00 [facility] Hep B, Adol or Pedi 2000 Completed Unive rsity of Dosage 00:00:00 [facility] Polio (IPV/OPV) 2000 Completed Universit y of 00:00:00 [facility] DTaP, Unspecified 2000 Completed Univers ity of Formulation 00:00:00 [facility] IPV 2000 Completed [facility] of 00:00:00 [facility] DTAP 2000 Completed University of 00:00:00 [facility] HIB 4 Dose Schedule 2000 Completed Unive rsity of 00:00:00 [facility] Hep B, Adol or Pedi 2000 Completed Unive rsity of Dosage 00:00:00 [facility] Polio (IPV/OPV) 2000 Completed Universit y of 00:00:00 [facility] DTaP, Unspecified 2000 Completed Univers ity of Formulation 00:00:00 [facility] IPV 2000 Completed University of 00:00:00 [facility] DTAP 2000 Completed University of 00:00:00 [facility] HIB 4 Dose Schedule 2000 Completed Unive rsity of 00:00:00 [facility] Hep B, Adol or Pedi 2000 Completed Unive rsity of Dosage 00:00:00 [facility] Polio (IPV/OPV) 2000 Completed Universit y of 00:00:00 [facility] DTaP, Unspecified 2000 Completed Univers ity of Formulation 00:00:00 [facility] IPV 2000 Completed University of 00:00:00 [facility] Vital Signs Vital Name Observation Time Observation Value Comments Source Systolic blood 2022-10-05 20:25:00 113 mm[Hg] Univer sity of pressure [facility] Diastolic blood 2022-10-05 20:25:00 70 mm[Hg] Unive rsity of pressure [facility] Heart rate 2022-10-05 20:25:00 78 /min Universi ty [facility] Body temperature 2022-10-05 20:25:00 36.61 Zoya [facility] Respiratory rate 2022-10-05 20:25:00 16 /min [facility] Body height 2022-10-05 20:25:00 157.5 cm Universi ty of [facility] Body weight 2022-10-05 20:25:00 64.365 kg Universi ty [facility] BMI 2022-10-05 20:25:00 25.95 kg/m2 Universi ty [facility] Body height 2022-02-04 20:55:00 157.5 cm Universi ty of [facility] Body weight 2022-02-04 20:55:00 63.141 kg Universi ty [facility] BMI 2022-02-04 20:55:00 25.46 kg/m2 Universi ty [facility] Systolic blood 2022-01-15 19:57:00 118 mm[Hg] Univer sity of pressure [facility] Diastolic blood 2022-01-15 19:57:00 71 mm[Hg] Unive rsity of pressure [facility] Heart rate 2022-01-15 19:57:00 67 /min [facility] Body temperature 2022-01-15 19:57:00 36.83 Zoya [facility] Respiratory rate 2022-01-15 19:57:00 18 /min [facility] Body height 2022-01-15 19:57:00 157.5 cm [facility] Body weight 2022-01-15 19:57:00 64.139 kg [facility] BMI 2022-01-15 19:57:00 25.86 kg/m2 [facility] Procedures Procedure Date / Time Performed Performing Clinician [facility] e ASSIGNMENT OF BENEFITS 2022-10-05 20:14:27 Doctor Unassigned, Madelin [facility] POCT TEST 2022-02-04 20:56:00 Gumaro Vieyra [facility] POCT TEST 2022-01-28 19:56:00 Jarrell Gumaro [facility] POCT TEST 2022-01-15 19:57:00 Jarrell Gumaro [facility] 2021-12-29 05:01:00 Doctor Unassigned, Madelin [facility] Encounters Start End Encounter Admission Attending Care Care Encounter Source Date/Time Date/Time Type Type Clinicians Facility Department ID 2023-10-06 2023-10-06 Outpatient R SARIKA LOPEZ [facility] B [id number] Univers 15:00:00 15:00:00 SARIKA LOPEZ [facility] 2022-10-05 2022-10-05 Outpatient R SARIKA LOPEZ [facility] B [id number] Univers 15:30:00 15:40:38 SARIKA LOPEZ [facility] 2022-10-05 2022-10-05 Office SINGH Lopez DRESDEN [id number] Univers 15:30:00 15:40:38 Visit Sarika JOHNSON [id number] it [id number] [facility] [id number] [address] 2022-10-05 2022-10-05 Orders Doctor GRISELDA [id number] Univers 00:00:00 00:00:00 Only Unassigned, NATHALIE [id number] ity of [place] [facility] [id number] [place] [id number] [place] [address] Branch 2022-09-11 2022-09-11 Outpatient R SARIKA LOPEZ [facility] B [id number] Univers 10:30:00 10:30:00 SARIKA LOPEZ pablo [facility] 2022-09-02 2022-09-02 Outpatient R SARIKA LOPEZ [facility] B [id number] Univers 16:00:00 16:00:[address] [facility] 2022-09-01 2022-09-01 Telephone [facility] [id number] Univers 00:00:00 00:00:00 Sarika JOHNSON [id number] [id number] [facility] [id number] [address] 2022-02-04 2022-02-04 Outpatient R GUMARO VIEYRA [facility] [id number] Univers 15:00:00 15:32:05 ity of [facility] 2022-02-04 2022-02-04 Nurse Nurse, Harish [facility] [id number] Univers 15:00:00 15:32:05 Visit Gumaro Vieyra [id number] [id number] [id number] [address] 2022-01-28 2022-01-28 Nurse Nurse, Harish [facility] [id number] Univers 14:45:00 15:02:57 Visit Gumaro Vieyra [id number] [id number] [id number] [address] 2022-01-28 2022-01-28 Outpatient R GUMARO VIEYRA [facility] [id number] Univers 14:45:00 14:45:00 ity [facility] 2022-01-15 2022-01-15 Outpatient R GUMARO VIEYRA [facility] [id number] Univers 14:30:00 15:14:14 ity [facility] 2022-01-15 2022-01-15 Routine Gumaro Vieyra CORADHA SANCHEZ [id number] Univers 14:30:00 15:14:14 RAKAN [id number] i ty of [place] [id number] [address] 2022-01-09 2022-01-09 Outpatient R PO CHENG [facility] [id number] Univers 13:00[facility]00 [facility]22-01-09 Routine Po Cheng 1.2.840.114 [id number] Univers 13:00:00 13:24:09 Clark JOHNSON 350.1.13.10 i ty of [place] [id number] [address] 2022-01-09 2022-01-09 Letter Po Cheng 1.2.840.114 [id number] Univers 00:00:00 00:00:00 (Out) Clark JOHNSON 350.1.13.10 it y of [place] [id number] [address] 2022-01-07 2022-01-07 Telephone Po Cheng [facility] 1.2.840.114 [id number] Univers 00:00:00 00:00:00 Clark HARRIS 350.1.13.10 i ty of [place] [id number] Md dical [address] 2022-01-07 2022-01-07 Patient Po Cheng CORADHA 1.2.871.661 [id number] Univers 00:00:00 00:00:00 Secure Msg Cam [place] 350.1.13.10 ity of [place] [id number] Md dical NAL [address] [place] [address] 2021-12-30 2021-12-30 Case Po Cheng [facility] 1.2.039.374 [id number] Univers 00:00:00 00:00:00 Management Cam [place] 350.1.13.10 ity of [place] [phone] Md dical NAL [address] [place] [address] 2021-12-29 2021-12-29 Outpatient R PROSPER PO [facility] [id number] Univers 14:00:00 15:30:34 ity of [facility] 2021-12-29 2021-12-29 Initial Prosper [facility] 1.2.354.597 [id number] Univers 14:00:00 15:30:34 Cam [place] 350.1.13.10 ity of [place] [id number] Md dical NAL [address] [place] [address] 2021-12-29 2021-12-29 Letter Po Cheng [facility] 1.2.264.536 [id number] Univers 00:00:00 00:00:00 (Out) Cam [place] 350.1.13.10 i ty of [place] [id number] Md dical NAL [address] [place] [address] 2021-12-29 2021-12-29 Orders Doctor GRISELDA 1.2.840.114 [id number] Univers 00:00:00 00:00:00 Only Unassigned, NATHALIE 350.1.13.10 ity of [place] [facility] 4.2.7.2.686 Román as [id number] [address] 2021-09-29 2021-09-29 Outpatient R GUMARO VIEYRA [facility] [id number] Univers 13:00:00 13:48:03 ity of [facility] 2021-09-29 2021-09-29 Routine Gumaro Vieyra CORADHA SANCHEZ 1.2.840.114 [id number] Univers 13:00:00 13:48:03 RAKAN 350.1.13.10 i ty of [place] [id number] [address] 2021-09-29 2021-09-29 Outpatient R GUMARO VIEYRA [facility] [id number] Univers 13:00:00 13:48:03 ity [facility] 2021-09-29 2021-09-29 Orders Doctor GRISELDA 1.2.840.114 [id number] Univers 00:00:00 00:00:00 Only Unassigned, NATHALIE 350.1.13.10 ity of [place] [facility] 4.2.7.2.686 Román as [id number] [address] 2021-09-25 2021-09-25 Outpatient R GUMARO VIEYRA [facility] [id number] Univers 13:45:00 13:45:00 ity [facility] [place] 2021-08-28 2021-08-28 Outpatient R GUMARO VIEYRA [facility] [id number] Univers 16:15:00 16:39:03 ity [facility] [place] 2021-08-28 2021-08-28 Routine Gumaro Vieyra [facility] 1.2.840.114 [id number] Univers 16:15:00 16:39:03 RAKAN 350.1.13.10 i ty of [place] [id number] [address] 2021-08-20 2021-08-20 Telephone Gumaro Vieyra [facility] SANCHEZ 1.2.840.11 [id number] Univers 00:00:00 00:00:00 RAKAN 350.1.13.10 it y [place]7.2.[place] [facility] [id number] [address] 2021-08-16 2021-08-16 Outpatient X PO CHENG CORADHA [place] [id number] Univers 14:57:00 17:30:00 ity [facility] [place] 2021-08-16 2021-08-16 Emergency ChengPo [facility] 1.2.840.114 [id number] Univers 14:57:00 17:30:00 Cam KIMBERLY 350.1.13.10 i ty of [place] 4.2.7.2.[address] [place] [address] [id number] [place] 146613 [place] 2021-08-16 2021-08-16 Orders Doctor GRISELDA 1.2.840.114 [id number] Univers 00:00:00 00:00:00 Only Unassigned, NATHALIE 350.1.13.10 ity of [place] [facility] 4.2.7.2.686 [facility] [phone] [facility] [address] 2021-08-11 2021-08-14 Inpatient P GUMARO VIEYRA [facility] AMBROCIO [id number] Univers 16:49:00 13:35:00 ity of [facility] 2021-08-11 2021-08-14 Hospital Gumaro Vieyra [facility] 1.2.840.114 [id number] Univers 16:49:00 13:35:00 Encounter KIMBERLY 350.1.13.10 ity of [place] 4.2.7.2.[address] [place] [address] [id number] [place] 146613 [place] 2021-08-13 2021-08-13 Anesthesia Barbara [facility] 1.2.840.114 [id number] Univers 20:04:53 20:04:53 Event Vitor HARRIS 350.1.13.10 i ty of [place] 4.2.7.2.[address] [place] [address] [id number] [place] 146613 [place] 2021-08-11 2021-08-11 Routine Gumaro Vieyra [facility] 1.2.840.114 [id number] Univers 13:45:00 14:00:00 RAKAN 350.1.13.10 i ty of Visit WOMEN'S 4.2.7.2.[address] [place] [address] [id number] [facility] [address] 2021-08-11 2021-08-11 Outpatient R GUMARO VIEYRA [facility] [id number] Univers 13:45:00 13:45:00 ity of [facility] 2021-08-11 2021-08-11 Letter Gumaro Vieyra [facility] 1.2.840.114 [id number] Univers 00:00:00 00:00:00 (Out) RAKAN 350.1.13.10 it y [place] [id number] [address] 2021-08-11 2021-08-11 Orders Doctor GRISELDA 1.2.840.114 [id number] Univers 00:00:00 00:00:00 Only Unassigned, NATHALIE 350.1.13.10 ity of [place] [facility] 4.2.7.2.686 Román as [id number] [place] [address] [place] 2021-08-04 2021-08-04 Outpatient R JARRELL GUMARO [facility] [id number] Univers 15:15:00 15:43:34 ity [facility] [place] 2021-08-04 2021-08-04 Routine Gumaro Vieyra [facility] 1.2.840.114 [id number] Univers 15:15:00 15:43:34 RAKAN 350.1.13.10 i ty of [place] [id number] [address] 2021-08-01 2021-08-01 Non Destructive Tester Faby Arauz Lab Main [facility] 1.2.8 40.114 [id number] Univers 12:15:00 12:30:00 Visit Gumaro VieyraELAINA 350.1.13.10 ity of [place] [id number] Md dical NAL [address] [facility] 2021-08-01 2021-08-01 Outpatient R JARRELL GUMARO [facility] [id number] Univers 12:15:00 12:15:00 ity [facility] [place] 2021-07-29 2021-07-29 Telephone JarrellGumaro [facility] 1.2.840.11 [id number] Univers 00:00:00 00:00:00 RAKAN 350.1.13.10 it [place] [id number] [address] 2021-07-28 2021-07-28 Outpatient R FISHGUMARO [facility] [id number] Univers 13:00:00 13:50:17 ity of [facility] 2021-07-28 2021-07-28 Routine Gumaro Vieyra 1.2.840.114 [id number] Univers 13:00:00 13:50:17 RAKAN 350.1.13.10 i ty of [place] [id number] [address] 2021-07-28 2021-07-28 Orders Doctor GRISELDA 1.2.840.114 [id number] Univers 00:00:00 00:00:00 Only Unassigned, NATHALIE 350.1.13.10 ity of [place] [facility] 4.2.7.2.686 Román as [id number] [address] 2021-07-09 2021-07-09 Outpatient R GUMARO VIEYRA [facility] [id number] Univers 16:00:00 16:42:30 ity [facility] [place] 2021-07-09 2021-07-09 Routine Gumaro Vieyra CORADHA SANCHEZ 1.2.840.114 [id number] Univers 16:00:00 16:42:30 RAKAN 350.1.13.10 i ty of [place] [id number] [address] 2021-07-04 2021-07-04 Patient Gumaro Vieyra 1.2.840.114 [id number] Univers 00:00:00 00:00:00 Secure Msg RAKAN 350.1.13.10 ity [place] [id number] [address] 2021-07-03 2021-07-03 Outpatient R GUMARO VIEYRA [facility] [id number] Univers 16:15:00 16:15:00 ity [facility] 2021-06-26 2021-06-26 Outpatient R GUMARO VIEYRA [facility] [id number] Univers 16:00:00 16:00:00 ity [facility] 2021-06-26 2021-06-26 Routine Gumaro Vieyra 1.2.840.114 [id number] Univers 10:15:00 10:30:00 RAKAN 350.1.13.10 i ty of [place] [id number] [address] 2021-06-26 2021-06-26 Outpatient R GUMARO VIEYRA [facility] [id number] Univers 10:15:00 10:15:00 ity [facility] 2021-06-26 2021-06-26 Telephone Gumaro Vieyra [facility] 1.2.840.11 [id number] Univers 00:00:00 00:00:00 RAKAN 350.1.13.10 it y [place] [id number] [address] 2021-06-20 2021-06-20 Non Destructive Tester Davonte, Faby Lab Main [facility] 1.2.8 40.114 [id number] Univers 10:45:00 11:00:00 Visit Luz Mckinley 350.1.13.10 ity [facility] [place]2.[place] [id number] Md dical [address] 2021-06-20 2021-06-20 Outpatient Snehal MCKINLEY [facility] [id number] Univers 10:45:00 10:45:[address] [facility] 2021-06-10 2021-06-10 Outpatient Snehal MCKINLEY [facility] [id number] Univers 15:00:00 15:34:21 LUZ landaverde [facility] 2021-06-10 2021-06-10 Routine Nazariodebra [facility] 1.2.840.114 [id number] Univers 14:58:28 15:34:21 Luz JOHNSON 350.1.13.10 i ty of [place] [id number] [address] 2021-06-10 2021-06-10 Outpatient Snehal MCKINLEY [facility] [id number] Univers 15:00:00 15:00:00 LUZ landaverde of [facility] 2021-05-27 2021-05-27 Routine Gumaro Vieyra [facility] LAURA 1.2.840.114 [id number] Univers 16:02:57 17:03:41 RAKAN 350.1.13.10 i ty of [place] [id number] [address] 2021-05-27 2021-05-27 Outpatient R GUMARO VIEYRA [facility] [id number] Univers 16:00:00 17:03:41 ity of [facility] 2021-05-21 2021-05-21 Telephone Gumaro Vieyra [facility] SANCHEZ 1.2.840.11 [id number] Univers 00:00:00 00:00:00 RAKAN 350.1.13.10 it [place] [id number] [address] 2021-05-14 2021-05-14 Non Destructive Tester Davonte, Faby Lab Main [facility] 1.2.8 40.114 [id number] Univers 08:17:15 08:32:15 Visit Gumaro Vieyra 350.1.13.10 ity of [place]2.[place] [id number] Md dic[address] 2021-05-14 2021-05-14 Outpatient R GUMARO VIEYRA [facility] [id number] Univers 08:15:00 08:15:00 ity [facility] [place] 2021-05-14 2021-05-14 Case Gumaro Vieyra [facility] 1.2.840.114 [id number] Univers 00:00:00 00:00:00 Management RAKAN 350.1.13.10 it[place] [id number] [address] 2021-05-14 2021-05-14 Orders Doctor GRISELDA 1.2.840.114 [id number] Univers 00:00:00 00:00:00 Only Unassigned, NATHALIE 350.1.13.10 ity of [place] [facility] 4.2.7.2.686 Román as [id number] [address] 2021-05-08 2021-05-08 Routine Gumaro Vieyra 1.2.840.114 [id number] Univers 15:18:18 16:53:02 RAKAN 350.1.13.10 i ty of [place] [id number] [address] 2021-05-08 2021-05-08 Outpatient R GUMARO VIEYRA [facility] [id number] Univers 15:15:00 16:53:02 ity [facility] [place] 2021-05-08 2021-05-08 Refill FishGumaro [facility] SANCHEZ 1.2.840.114 [id number] Univers 00:00:00 00:00:00 RAKAN 350.1.13.10 it y [place] [id number] [address] 2021-05-01 2021-05-01 Outpatient R GUMARO VIEYRA [facility] [id number] Univers 16:00:00 16:00:00 ity [facility] [place] 2021-04-24 2021-04-24 Telephone Gumaro Vieyra [facility] 1.2.840.11 [id number] Univers 00:00:00 00:00:00 Rakan 350.1.13.10 it [place] [id number] [address] 2021-04-01 2021-04-01 Routine Gumaro Vieyra 1.2.840.114 [id number] Univers 16:13:18 16:43:50 Rakan 350.1.13.10 i ty of [place] [id number] [address] 2021-04-01 2021-04-01 Outpatient R GUMARO VIEYRA [facility] [id number] Univers 16:15:00 16:15:00 ity [facility] [place] 2021-03-25 2021-03-25 Non Destructive Tester Faby Arauz Lab Main [facility] 1.2.8 40.114 [id number] Univers 16:08:47 16:23:47 Visit Gumaro Vieyra 350.1.13.10 ity of [place] [id number] Md dical [address] 2021-03-25 2021-03-25 Non Destructive Tester Ultrasound, Johana [facility] 1.2 .840.114 [id number] Univers 14:34:05 15:34:05 Visit Zahida Meza [facility] 350.1.13.10 ity of [facility] 4.2.7.2.686 Román as MATERNAL [id number] Med ical & CHILD [address] [place] [address] 2021-03-25 2021-03-25 Outpatient P [facility] [id number] Univers 14:45:00 14:45:00 ity of [facility] 2021-03-25 2021-03-25 Orders Doctor GRISELDA 1.2.840.114 [id number] Univers 00:00:00 00:00:00 Only Unassigned, NATHALIE 350.1.13.10 ity of [place] [facility] 4.2.7.2.686 Román as [id number] [address] 2021-03-13 2021-03-13 Telephone Gumaro Vieyra CORAD[facility] [place] 1.2.840.11 [id number] Univers 00:00:00 00:00:00 Rakan 350.1.13.10 it [place] of [place] [id number] [address] 2021-03-04 2021-03-04 Routine Gumaro Vieyra [facility] 1.2.840.114 [id number] Univers 14:32:30 15:16:29 Rakan 350.1.13.10 i ty of [place] [id number] [address] 2021-03-04 2021-03-04 Outpatient R JARRELL GUMARO [facility] [id number] Univers 14:30:00 14:30:00 ity of [facility] 2021-03-03 2021-03-03 Outpatient R GUMARO VIEYRA [facility] [id number] Univers 16:00:00 16:00:00 ity [facility] [place] 2021-02-19 2021-02-19 Outpatient R GUMARO VIEYRA [facility] [id number] Univers 08:30:00 08:30:00 ity [facility] 2021-02-19 2021-02-19 Orders Doctor GRISELDA 1.2.840.114 [id number] Univers 00:00:00 00:00:00 Only Unassigned, NATHALIE 350.1.13.10 ity [facility] 4.2.7.2.686 Román as [id number] [address] 2021-02-03 2021-02-03 Outpatient R GUMARO VIEYRA [facility] [id number] Univers 16:00:00 16:00:00 ity [facility] 2021-01-22 2021-01-22 Outpatient R [facility] [id number] Univers 11:00:00 11:00:00 ity [facility] 2021-01-21 2021-01-21 Outpatient R [facility] [id number] Univers 14:00:00 14:00:00 ity [facility] 2021-01-20 2021-01-20 Outpatient R GUMARO VIEYRA [facility] [id number] Univers 16:00:00 16:00:00 ity [facility] [place] 2020-12-30 2020-12-30 Outpatient R GUMARO VIEYRA [facility] [id number] Univers 16:00:00 16:00:00 ity [facility] 2020-12-26 2020-12-26 Outpatient R GUMARO VIEYRA [facility] [id number] Univers 14:45:00 14:45:00 ity [facility] 2020-12-18 2020-12-18 Outpatient R GUMARO VIEYRA [facility] [id number] Univers 16:00:00 16:00:00 ity [facility] 2020-12-16 2020-12-16 Outpatient R GUMARO VIEYRA [facility] [id number] Univers 14:30:00 14:30:00 ity [facility] 2020-10-10 2020-10-10 [facility] [id number] Univers 16:00:00 16:00:00 ROCIO dias [facility] 2020-09-02 2020-09-02 Outpatient R NASREEN [facility] [id number] Univers 13:00:00 13:00:[address] [facility] 2019-11-08 2019-11-08 Outpatient R [facility] [id number] Univers 14:00:00 14:00:[address] [facility] 2019-06-21 2019-06-21 Outpatient R PO CHENG [facility] [id number] Univers 14:06:55 23:59:[address] [facility] Results Test Description Test Time Test Comments Results Result Comments Source POCT TEST 2022-02-04 20:56:00 Test Item Value Reference Range Interpretation Comme nts POCT PREG (test code = 1605) Negative On board controls acceptable with C Line (test code = 3574) Yes POCT PREG LOT # (test code = 3575) POCT [facility]REG TEST [facility] (test code = 3576) [id number] 19:56:00 Test Item Value Reference Range Interpretation Comments POCT PREG (test code = 1605) Positive On board controls acceptable with C Yes Line (test code = 3574) POCT PREG LOT # (test code = 3575) POCT PREG TEST DATE (test code = 3576) [facility] [id number] 19:58:00 Test Item Value Reference Range Interpretation Comments POCT PREG (test code = 1605) Positive On board controls acceptable with C Yes Line (test code = 3574) POCT PREG LOT # (test code = 3575) POCT PREG TEST DATE (test code = 3576) [facility]
--- NOTE | 2023-02-20 23:03 | RAD REPORT ---
EXAM DESCRIPTION: RAD - Forearm Left - 02/20/2023 10:34 pm CLINICAL HISTORY: Pain;Swelling COMPARISON: No comparisons TECHNIQUE: Left forearm, one-view FINDINGS: No fracture is identified. There is no dislocation or periosteal reaction noted. No foreign body or other soft tissue abnormality. IMPRESSION: Negative left forearm radiograph.
--- NOTE | 2023-02-20 23:37 | EDPHYS ---
Physician Documentation [facility] Name: Harsh Blanco Age: 22 yrs Sex: Female : 2000 Arrival Date: 02/20/2023 Time: 20:39 Bed 12 Private MD: ED Physician Cami Jacques HPI: 02/20 22:00 This 22 yrs old Female presents to ER via Ambulatory with complaints of cp SUSPICIOUS BUMP ON WRIST. 22:00 The patient or guardian complains of swelling, tenderness. The complaints affect the cp dorsal aspect of left forearm. Context: resulted from striking area against door frame after dog pulled on leash. 22:00 Onset: The symptoms/episode began/occurred 2 week(s) ago. Associated signs and cp symptoms: Pertinent negatives: decreased range of motion, erythema, fever, numbness, warmth. 22:00 Severity of symptoms: in the emergency department the symptoms swelling has improved cp but has not resolved. Historical: - Allergies: 21:34 No Known Allergies; pf1 - PMHx: 21:34 None; pf1 - PSHx: 21:34 None; pf1 - Immunization history:: Adult Immunizations up to date, Client reports having NOT received the Covid vaccine. Last tetanus immunization: < 10 years ago Flu vaccine is not up to date. - Social history:: Smoking status: Patient denies any tobacco usage or history of. Patient/guardian denies using alcohol, street drugs. ROS: 22:05 MS/extremity: Positive for pain, swelling, tenderness, of the dorsal aspect of left cp forearm, Negative for decreased range of motion, erythema, paresthesias. 22:05 Constitutional: Negative for body aches, chills, fever. cp 22:05 Respiratory: Negative for cough, shortness of breath, wheezing. 22:05 Skin: Negative for cellulitis, rash. 22:05 All other systems are negative. Exam: 22:10 Constitutional: The patient appears in no acute distress, alert, awake, comfortable, cp non-toxic, well developed, well nourished. 22:10 Head/Face: Normocephalic, atraumatic. cp 22:10 Chest/axilla: Inspection: normal. 22:10 Cardiovascular: Rate: normal, Pulses: Pulses are 2+ in left radial artery. 22:10 Respiratory: the patient does not display signs of respiratory distress, Respirations: normal, no use of accessory muscles, no retractions, labored breathing, is not present. 22:10 Musculoskeletal/extremity: Extremities: grossly normal except: noted in the dorsal aspect of left forearm: tenderness, mild swelling and ecchymosis noted, There is no evidence of decreased ROM, deformity, the left hand and left arm Sensation intact. 22:10 Skin: cellulitis, is not appreciated, no rash present. Vital Signs: 21:31 BP 117 / 81; Pulse 80; Resp 18; Temp 98; Pulse Ox 99% on R/A; Weight 63.5 kg; Height 5 pf1 ft. 2 in. ; Pain 3/10; 21:31 Body Mass Index 25.61 (63.50 kg, 157.48 cm) pf1 21:31 Pain Scale: Adult pf1 MDM: 21:37 Patient medically screened. cp 22:30 Differential diagnosis: closed fracture, contusion, hematoma, abscess. cp 23:35 Data reviewed: vital signs, nurses notes, radiologic studies, plain films. cp 23:35 Counseling: I had a detailed discussion with the patient and/or guardian regarding the cp historical points, exam findings, and any diagnostic results supporting the discharge/admit diagnosis, radiology results, to return to the emergency department if symptoms worsen or persist or if there are any questions or concerns that arise at home. 02/20 21:33 Order name: GEORGE Forearm LEFT; Complete Time: 23:25 cp Administered Medications: No medications were administered Disposition Summary: 02/20/23 23:36 Discharge Ordered Location: Home cp Problem: new cp Symptoms: are unchanged cp Condition: Stable cp Diagnosis - Localized swelling, mass and lump, left upper limb - left forearm cp Followup: cp - With: Private Physician - When: 1 week - Reason: Worsening of condition Discharge Instructions: - Discharge Summary Sheet cp - Contusion cp - Hematoma cp Forms: - Medication Reconciliation Form cp - Thank You Letter cp - Antibiotic Education cp - Prescription Opioid Use cp - Patient Portal Instructions cp - Leadership Thank You Letter cp Prescriptions: - Ibuprofen 600 mg Oral Tablet - take 1 tablet by ORAL route every 8 hours As needed take with food; 30 tablet; cp Refills: 0, Product Selection Permitted Signatures: Dispatcher [employer] EDAZ Page, Rubens, PA PA cp Barron, Luli, RN RN pf1 Corrections: (The following items were deleted from the chart) 02/22 00:23 02/20 22:00 Context: resulted from striking area against door. cp cp
--- NOTE | 2023-02-20 23:37 | ER ---
Nurse's Notes [facility] Name: Harsh Blanco Age: 22 yrs Sex: Female : 2000 Arrival Date: 02/20/2023 Time: 20:39 Bed 12 Private MD: Diagnosis: Localized swelling, mass and lump, left upper limb-left forearm Presentation: 02/20 21:31 Chief complaint: Patient states: Patient C/O left forearm pain of 3 with bump,onset 2 pf1 weeks. Patient stated injured arm when attempting to walk dog, dog pulled on leash and patient hit left forearm on door frame, onset 2 weeks. Coronavirus screen: Vaccine status: Patient reports being unvaccinated. Client denies travel out of the [place] in the last 14 days. At this time, the client does not indicate any symptoms associated with coronavirus-19. Ebola Screen: Patient negative for fever greater than or equal to 101.5 degrees Fahrenheit, and additional compatible Ebola Virus Disease symptoms. Initial Sepsis Screen: Does the patient meet any 2 criteria? No. Patient's initial sepsis screen is negative. Does the patient have a suspected source of infection? No. Patient's initial sepsis screen is negative. Risk Assessment: Do you want to hurt yourself or someone else? Patient reports no desire to harm self or others. 21:31 Method Of Arrival: Ambulatory pf1 21:31 Acuity: FLORINDA 4 pf1 Historical: - Allergies: 21:34 No Known Allergies; pf1 - PMHx: 21:34 None; pf1 - PSHx: 21:34 None; pf1 - Immunization history:: Adult Immunizations up to date, Client reports having NOT received the Covid vaccine. Last tetanus immunization: < 10 years ago Flu vaccine is not up to date. - Social history:: Smoking status: Patient denies any tobacco usage or history of. Patient/guardian denies using alcohol, street drugs. Screenin:22 [facility] ED Fall Risk Assessment (Adult) History of falling in the last 3 months, pf1 including since admission No falls in past 3 months (0 pts) Confusion or Disorientation No (0 pts) Intoxicated or Sedated No (0 pts) Impaired Gait No (0 pts) Mobility Assist Device Used No (0 pt) Altered Elimination No (0 pt) Score/Fall Risk Level 0 - 2 = Low Risk Oriented to surroundings, Maintained a safe environment, Educated pt \T\ family on fall prevention, incl call for assistance when getting out of bed, Assessed \T\ reinforced patient's understanding of fall precautions, Provided non-skid footwear, Hourly rounding (assess needs \T\ fall precautionary measures) done, Used ambulatory aids as needed (educated on \T\ assisted with), Used gait belt as appropriate. 23:22 Abuse screen: Denies threats or abuse. Nutritional screening: No deficits noted. pf1 Tuberculosis screening: No symptoms or risk factors identified. Assessment: 23:22 General: Appears in no apparent distress. comfortable, well groomed, well developed, pf1 Behavior is calm, cooperative, appropriate for age, quiet. 23:22 Pain: Complains of pain in left forearm Pain currently is 3 out of 10 on a pain scale. pf1 Neuro: No deficits noted. Level of Consciousness is awake, alert, obeys commands, Oriented to person, place, time, situation. Cardiovascular: No deficits noted. Capillary refill < 3 seconds Patient's skin is warm and dry. Respiratory: No deficits noted. Airway is patent Respiratory effort is even, unlabored, Respiratory pattern is regular, symmetrical. GI: No deficits noted. No signs and/or symptoms were reported involving the gastrointestinal system. : No deficits noted. No signs and/or symptoms were reported regarding the genitourinary system. EENT: No deficits noted. No signs and/or symptoms were reported regarding the EENT system. Derm: No deficits noted. No signs and/or symptoms reported regarding the dermatologic system. Musculoskeletal: Reports pain in left forearm pain of 3 with bump to left forearm. Vital Signs: 21:31 BP 117 / 81; Pulse 80; Resp 18; Temp 98; Pulse Ox 99% on R/A; Weight 63.5 kg; Height 5 pf1 ft. 2 in. ; Pain 3/10; 21:31 Body Mass Index 25.61 (63.50 kg, 157.48 cm) pf1 21:31 Pain Scale: Adult pf1 ED Course: 20:44 Patient arrived in ED. [id number] 20:49 Rubens Troy PA is PHCP. cp 20:49 Cami Jacques MD is Attending Physician. cp 21:34 Triage completed. pf1 22:35 XRAY Forearm LEFT In Process Unspecified. EDMS 23:22 Patient has correct armband on for positive identification. Bed in low position. Call pf1 light in reach. 23:22 Arm band placed on right wrist. pf1 02/21 00:30 Provided Education on: medication administration. pf1 00:30 No provider procedures requiring assistance completed. pf1 00:30 Patient did not have IV access during this emergency room visit. pf1 Administered Medications: No medications were administered Medication: 02/20 00:30 VIS not applicable for this client. pf1 Outcome: 23:36 Discharge ordered by . [email or web address] 02/21 00:00 Discharged to home ambulatory. pf1 Condition: improved Discharge instructions given to patient, Instructed on discharge instructions, follow up and referral plans. Demonstrated understanding of instructions, follow-up care, medications, Prescriptions given X 1. 00:30 Patient left the ED. pf1 Signatures: Dispatcher [employer] EDMS Rubens Troy PA PA cp Jeffries, Jennifer [email or web address] Luli Barron, RN RN pf1
[2023-02-21 00:39] VITALS: BP 117/81; TEMP 98; O2SAT 99
== END 2023-02-21 00:30 | disposition home or self-care (01) ==
LOC: ER 20:39
DX: R22.32 Localized swelling, mass and lump, left upper limb (principal)
CPT/HCPCS: 99283

== ENCOUNTER 2023-05-05 19:27 | Emergency (ER) | payer OTHER ==
--- OUTSIDE RECORDS SUMMARY | 2023-05-05 19:35 | XMS REPORT | Continuity of Care Document ---
:2000 Author Organization [facility] t Address [address] [place] [address] Care Team Providers Name Role Phone Pcp, Patient Does Not Have A Primary Care Physician [phone] RANDALL AVILES Attending Clinician Unavailable RANDALL AVILES Attending Clinician Unavailable SARIKA LOPEZ Attending Clinician Unavailable SARIKA LOPEZ Attending Clinician Unavailable Doctor Unassigned, [place] Attending Clinician Unavailable Pob, [facility] Attending Clinician Unavailable GUMARO VIEYRA Attending Clinician Unavailable Nurse, [facility] Attending Clinician Unavailable Gumaro Vieyra MD Attending Clinician PO CHENG Attending Clinician Unavailable Po Cheng MD Attending Clinician Vitor Jimenez CRNA Attending Clinician Luz Mckinley PA-C Attending Clinician LUZ MCKINLEY Attending Clinician Unavailable Ultrasound, Ang-[facility] Attending Clinician Unavailable Zahida Meza MD Attending Clinician ROCIO LANDA Attending Clinician Unavailable TERI DOWNEY Attending Clinician Unavailable PO CHENG Admitting Clinician Unavailable Po Cheng MD Admitting Clinician GUMARO VIEYRA Admitting Clinician Unavailable Gumaro Vieyra MD Admitting Clinician Payers Payer Name Policy Type Policy Number Effective Date Expiration Date S [place] [id number] 2022 00:00:00 [place] [id number] 2019 2019 00:00:00 00:00:00 Problems Condition Condition Condition Status Onset Resolution Last Treating Co mments Source Name Details Category Date Date Treatment Clinician Date Vaginal Vaginal Disease Active Univers discharge discharge 4-03 ity of 00:00: [place] [address] Medical Branch BMI BMI Disease Active Univers 25.0-25.9, 25.0-25.9, 4-03 it y of adult adult 00:00: [place] [address] Medical Branch Vaginal Vaginal Disease Active Univers bleeding bleeding 7-08 [place] Short Short Disease Active Univers interval interval 6-27 ity of between between 00:00: [place] pregnancie pregnancie 00 Me dical s s Branch affecting affecting , , antepartum antepartum High risk High risk Disease Active Uni vers , , 6-27 it y [place] ante[place] [facility] Hx of Hx of Disease Active Univers preeclamps preeclamps 3-28 it y of [place], [place] currently currently Bran ch Rh Rh Disease Active Univers negative negative 7-19 ity of state in state in 00:00: [place] antepartum antepartum 00 Me dical period period [...] Active Univers ALLERGIE Class ity of S [facility] Social History Social Habit Start Date Stop Date Quantity Comments Source ASSERTION 2023-02-12 University of 00:00:00 [facility] History SDOH University o f Alcohol Comment [place] [facility] Gender identity Universit y of [facility] Sexual orientation Univer [facility]ity of [place] [facility] [place] History SDOH University o f Alcohol Std Drinks [place] [facility] [place] History SDUT University o f Alcohol Binge [place] [facility] Alcohol intake 2023-04-16 2023-04-16 Ex-drinker University 00:00:00 00:00:00 (finding) [facility] Exposure to 2022-09-25 2022-10-05 Not sure [facility] SARS-CoV-2 (event) 00:00:00 15:12:00 [facility] Tobacco use and 2022-10-05 2022-10-05 Smokeless Universit y of exposure 00:00:00 00:00:00 tobacco non-user [facility] dical [place] History of Social 2021-09-29 2021-09-29 Univers ity of function 00:00:00 00:00:00 [facility] History SDOH 2019-06-19 2019-06-19 1 University o f Alcohol Frequency 00:00:00 00:00:00 [facility] Sex Assigned At 2000 2000 Universit y of 00:00:00 00:00:00 [facility] Smoking Status Start Date Stop Date Source Never smoked tobacco [facility] Medications Ordered Filled Start Stop Current Ordering Indication Dosage Frequency Signature Comments Components Source Medication Medication Date Date Medication? Clinician (SIG) Name Name [facility] Yes [id number] 1{appli Insert 1 Univers acid-citric 4-03 catorfu Applicator ity of -potassium 00:00: l} ful into [place] as (PHEXXI) 00 vagina as Medica l 1.8-1-0.4 % needed Branch Gel (sex). lactic Yes [id number] 1{appli Insert 1 Univers acid-citric 4-03 catorfu Applicator ity of -potassium 00:00: l} ful into [place] (PHEXXI) 00 vagina as Medica l 1.8-1-0.4 % needed Branch Gel (sex). lactic Yes [id number] 1{appli Insert 1 Univers acid-citric 4-03 catorfu Applicator ity of -potassium 00:00: l} ful into [place] (PHEXXI) 00 vagina as Medica l 1.8-1-0.4 % needed Branch Gel (sex). lactic Yes [id number] 1{appli Insert 1 Univers acid-citric 4-03 catorfu Applicator ity of -potassium 00:00: l} ful into [place] (PHEXXI) 00 vagina as Medica l 1.8-1-0.4 % needed Branch Gel (sex). lactic Yes [id number] 1{appli Insert 1 Univers acid-citric 4-03 catorfu Applicator ity of -potassium 00:00: l} ful into [place] (PHEXXI) 00 vagina as Medica l 1.8-1-0.4 % needed Branch Gel (sex). lactic Yes [id number] 1{appli Insert 1 Univers acid-citric 4-03 catorfu Applicator ity of -potassium 00:00: l} ful into [place] (PHEXXI) 00 vagina as Medica l 1.8-1-0.4 % needed Branch Gel (sex). lactic Yes [id number] 1{appli Insert 1 Univers acid-citric 4-03 catorfu Applicator ity of -potassium 00:00: l} ful into [place] (PHEXXI) 00 vagina as Medica l 1.8-1-0.4 % needed Branch Gel (sex). lactic Yes [id number] 1{appli Insert 1 Univers acid-citric 4-03 catorfu Applicator ity of -potassium 00:00: l} ful into [place] (PHEXXI) 00 vagina as Medica l 1.8-1-0.4 % needed Branch Gel (sex). lactic Yes [id number] 1{appli Insert 1 Univers acid-citric 4-03 catorfu Applicator ity of -potassium 00:00: l} ful into [place] (PHEXXI) 00 vagina as Medica l 1.8-1-0.4 % needed Branch Gel (sex). lactic Yes [id number] 1{appli Insert 1 Univers acid-citric 4-03 catorfu Applicator ity of -potassium 00:00: l} ful into [place] (PHEXXI) 00 vagina as Medica l 1.8-1-0.4 % needed Branch Gel (sex). lactic Yes [id number] 1{appli Insert 1 Univers acid-citric 4-03 catorfu Applicator ity of -potassium 00:00: l} ful into [place] (PHEXXI) 00 vagina as Medica l 1.8-1-0.4 % needed Branch Gel (sex). lactic Yes [id number] 1{appli Insert 1 Univers acid-citric 7-14 catorfu Applicator ity of -potassium 00:00: l} ful into [place] (PHEXXI) 00 vagina as Medica l 1.8-1-0.4 % needed Branch Gel (sex). lactic Yes [id number] 1{appli Insert 1 Univers acid-citric 7-14 catorfu Applicator ity of -potassium 00:00: l} ful into [place] (PHEXXI) 00 vagina as Medica l 1.8-1-0.4 % needed Branch Gel (sex). lactic Yes [id number] 1{appli Insert 1 Univers acid-citric 7-14 catorfu Applicator ity of -potassium 00:00: l} ful into [place] (PHEXXI) 00 vagina as Medica l 1.8-1-0.4 % needed Branch Gel (sex). lactic Yes [id number] 1{appli Insert 1 Univers acid-citric 7-14 catorfu Applicator ity of -potassium 00:00: l} ful into [place] (PHEXXI) 00 vagina as Medica l 1.8-1-0.4 % needed Branch Gel (sex). lactic Yes [id number] 1{appli Insert 1 Univers acid-citric 7-14 catorfu Applicator ity of -potassium 00:00: l} ful into [place] (PHEXXI) 00 vagina as Medica l 1.8-1-0.4 % needed Branch Gel (sex). lactic 2022- No [id number] 1{appli Insert 1 Univers acid-citric 7-14 04-03 catorfu Applicator ity of -potassium 00:00: 00:00 l[place]HE[place] :00 vagina as Medica l 1.8-1-0.4 % needed Branch Gel (sex). lactic 2022- No [id number] 1{appli Insert 1 Univers acid-citric 7-14 04-03 catorfu Applicator ity of -potassium 00:00: 00:00 l[place] (PHEXXI[place] 00 :00 vagina as Medica l 1.8-1-0.4 % needed Branch Gel (sex). PNV 0 Yes [id number] Take 1 Univers 102-iron-fo 6-27 TAB-CAP/M2 it y of late-dha 00:00: by mouth [place] (VITAFOL FE 00 daily. Medica l PLUS) 90 mg Branch iron- 1 mg-200 mg Cap PNV 0 Yes [id number] Take 1 Univers 102-iron-fo 6-27 TAB-CAP/M2 it y of late-dha 00:00: by mouth [place] (VITAFOL FE 00 daily. Medica l PLUS) 90 mg Branch iron- 1 mg-200 mg Cap PNV 0 Yes [id number] Take 1 Univers 102-iron-fo 6-27 TAB-CAP/M2 it y of late-dha 00:00: by mouth [place] (VITAFOL FE 00 daily. Medica l PLUS) 90 mg Branch iron- 1 mg-200 mg Cap PNV 2021-0 Yes [id number] Take 1 Univers 102-iron-fo 6-27 TAB-CAP/M2 it y of late-dha 00:00: by mouth [place] (VITAFOL FE 00 daily. Medica l PLUS) 90 mg Branch iron- 1 mg-200 mg Cap PNV 2021-0 Yes [id number] Take 1 Univers 102-iron-fo 6-27 TAB-CAP/M2 it y of late-dha 00:00: by mouth [place] (VITAFOL FE 00 daily. Medica l PLUS) 90 mg Branch iron- 1 mg-200 mg Cap PNV 2021-0 Yes [id number] Take 1 Univers 102-iron-fo 6-27 TAB-CAP/M2 it y of late-dha 00:00: by mouth [place] (VITAFOL FE 00 daily. Medica l PLUS) 90 mg Branch iron- 1 mg-200 mg Cap PNV 2021-0 Yes [id number] Take 1 Univers 102-iron-fo 6-27 TAB-CAP/M2 it y of late-dha 00:00: by mouth [place] (VITAFOL FE 00 daily. Medica l PLUS) 90 mg Branch iron- 1 mg-200 mg Cap PNV 2021-0 Yes [id number] Take 1 Univers 102-iron-fo 6-27 TAB-CAP/M2 it y of late-dha 00:00: by mouth [place] (VITAFOL FE 00 daily. Medica l PLUS) 90 mg Branch iron- 1 mg-200 mg Cap PNV 2021-0 Yes [id number] Take 1 Univers 102-iron-fo 6-27 TAB-CAP/M2 it y of late-dha 00:00: by mouth [place] (VITAFOL FE 00 daily. Medica l PLUS) 90 mg Branch iron- 1 mg-200 mg Cap PNV 2021-0 Yes [id number] Take 1 Univers 102-iron-fo 6-27 TAB-CAP/M2 it y of late-dha 00:00: by mouth [place] (VITAFOL FE 00 daily. Medica l PLUS) 90 mg Branch iron- 1 mg-200 mg Cap PNV 2021-0 Yes [id number] Take 1 Univers 102-iron-fo 6-27 TAB-CAP/M2 it y of late-dha 00:00: by mouth [place] (VITAFOL FE 00 daily. Medica l PLUS) 90 mg Branch iron- 1 mg-200 mg Cap PNV 2021-0 Yes [id number] Take 1 Univers 102-iron-fo 6-27 TAB-CAP/M2 it y of late-dha 00:00: by mouth [place] (VITAFOL FE 00 daily. Medica l PLUS) 90 mg Branch iron- 1 mg-200 mg Cap PNV 2021-0 Yes [id number] Take 1 Univers 102-iron-fo 6-27 TAB-CAP/M2 it y of late-dha 00:00: by mouth [place] (VITAFOL FE 00 daily. Medica l PLUS) 90 mg Branch iron- 1 mg-200 mg Cap PNV 2021-0 Yes [id number] Take 1 Univers 102-iron-fo 6-27 TAB-CAP/M2 it y of late-dha 00:00: by mouth [place] (VITAFOL FE 00 daily. Medica l PLUS) 90 mg Branch iron- 1 mg-200 mg Cap PNV 2021-0 Yes [id number] Take 1 Univers 102-iron-fo 6-27 TAB-CAP/M2 it y of late-dha 00:00: by mouth [place] (VITAFOL FE 00 daily. Medica l PLUS) 90 mg Branch iron- 1 mg-200 mg Cap PNV 2021-0 Yes [id number] Take 1 Univers 102-iron-fo 6-27 TAB-CAP/M2 it y of late-dha 00:00: by mouth [place] (VITAFOL FE 00 daily. Medica l PLUS) 90 mg Branch iron- 1 mg-200 mg Cap PNV 2021-0 Yes [id number] Take 1 Univers 102-iron-fo 6-27 TAB-CAP/M2 it y of late-dha 00:00: by mouth [place] (VITAFOL FE 00 daily. Medica l PLUS) 90 mg Branch iron- 1 mg-200 mg Cap Immunizations Ordered Immunization Filled Date Status Comments Sour ce Name Immunization Name Rho (d) Immune 2021-08-13 Completed University of Globulin 00:00:00 [facility] Rho (d) Immune 2021-08-13 Completed University of Globulin 00:00:00 [facility] Rho (d) Immune 2021-08-13 Completed University of Globulin 00:00:00 [facility] Rho (d) Immune 2021-08-13 Completed University of Globulin 00:00:00 [facility] Rho (d) Immune 2021-08-13 Completed University of Globulin 00:00:00 [facility] Rho (d) Immune 2021-08-13 Completed University of Globulin 00:00:00 [facility] Rho (d) Immune 2021-08-13 Completed University of Globulin 00:00:00 [facility] Rho (d) Immune 2021-08-13 Completed University of Globulin 00:00:00 [facility] Rho (d) Immune 2021-08-13 Completed University of Globulin 00:00:00 [facility] Rho (d) Immune 2021-08-13 Completed University of Globulin 00:00:00 [facility] Rho (d) Immune 2021-08-13 Completed University of Globulin 00:00:00 [facility] Rho (d) Immune 2021-08-13 Completed University of Globulin 00:00:00 [facility] Rho (d) Immune 2021-08-13 Completed University of Globulin 00:00:00 [facility] TDAP 2021-05-27 Completed University of 00:00:00 [facility] Rho (d) Immune 2021-05-27 Completed University of Globulin 00:00:00 [facility] TDAP 2021-05-27 Completed University of 00:00:00 [facility] Rho (d) Immune 2021-05-27 Completed University of Globulin 00:00:00 [facility] TDAP 2021-05-27 Completed University of 00:00:00 [facility] Rho (d) Immune 2021-05-27 Completed University of Globulin 00:00:00 [facility] TDAP 2021-05-27 Completed University of 00:00:00 [facility] Rho (d) Immune 2021-05-27 Completed University of Globulin 00:00:00 [facility] TDAP 2021-05-27 Completed University of 00:00:00 [facility] Rho (d) Immune 2021-05-27 Completed University of Globulin 00:00:00 [facility] TDAP 2021-05-27 Completed University of 00:00:00 [facility] Rho (d) Immune 2021-05-27 Completed University of Globulin 00:00:00 [facility] TDAP 2021-05-27 Completed University of 00:00:00 [facility] Rho (d) Immune 2021-05-27 Completed University of Globulin 00:00:00 [facility] TDAP 2021-05-27 Completed University of 00:00:00 [facility] Rho (d) Immune 2021-05-27 Completed University of Globulin 00:00:00 [facility] TDAP 2021-05-27 Completed University of 00:00:00 [facility] Rho (d) Immune 2021-05-27 Completed University of Globulin 00:00:00 [facility] TDAP 2021-05-27 Completed University of 00:00:00 [facility] Rho (d) Immune 2021-05-27 Completed University of Globulin 00:00:00 [facility] TDAP 2021-05-27 Completed University of 00:00:00 [facility] Rho (d) Immune 2021-05-27 Completed University of Globulin 00:00:00 [facility] TDAP 2021-05-27 Completed University of 00:00:00 [facility] Rho (d) Immune 2021-05-27 Completed University of Globulin 00:00:00 [facility] TDAP 2021-05-27 Completed University of 00:00:00 [facility] Rho (d) Immune 2021-05-27 Completed University of Globulin 00:00:00 [facility] Rho (d) Immune 2021-01-22 Completed University of Globulin 00:00:00 [place] [facility] Rho (d) Immune 2021-01-22 Completed University of Globulin 00:00:00 [facility] Rho (d) Immune 2021-01-22 Completed University of Globulin 00:00:00 [facility] Rho (d) Immune 2021-01-22 Completed University of Globulin 00:00:00 [facility] Rho (d) Immune 2021-01-22 Completed University of Globulin 00:00:00 [facility] Rho (d) Immune 2021-01-22 Completed University of Globulin 00:00:00 [facility] Rho (d) Immune 2021-01-22 Completed University of Globulin 00:00:00 [facility] Rho (d) Immune 2021-01-22 Completed University of Globulin 00:00:00 [facility] Rho (d) Immune 2021-01-22 Completed University of Globulin 00:00:00 [facility] Rho (d) Immune 2021-01-22 Completed University of Globulin 00:00:00 [facility] Rho (d) Immune 2021-01-22 Completed University of Globulin 00:00:00 [facility] Rho (d) Immune 2021-01-22 Completed University of Globulin 00:00:00 [facility] Rho (d) Immune 2021-01-22 Completed University of Globulin 00:00:00 [facility] Rho (d) Immune 2019-06-23 Completed University of Globulin 00:00:00 [facility] Rho (d) Immune 2019-06-23 Completed University of Globulin 00:00:00 [facility] Rho (d) Immune 2019-06-23 Completed University of Globulin 00:00:00 [facility] Rho (d) Immune 2019-06-23 Completed University of Globulin 00:00:00 [facility] Rho (d) Immune 2019-06-23 Completed University of Globulin 00:00:00 [facility] Rho (d) Immune 2019-06-23 Completed University of Globulin 00:00:00 [facility] Rho (d) Immune 2019-06-23 Completed University of Globulin 00:00:00 [facility] Rho (d) Immune 2019-06-23 Completed University of Globulin 00:00:00 [facility] Rho (d) Immune 2019-06-23 Completed University of Globulin 00:00:00 [facility] Rho (d) Immune 2019-06-23 Completed University of Globulin 00:00:00 [facility] Rho (d) Immune 2019-06-23 Completed University of Globulin 00:00:00 [facility] Rho (d) Immune 2019-06-23 Completed University of Globulin 00:00:00 [facility] Rho (d) Immune 2019-06-23 Completed University of Globulin 00:00:00 [facility] Influenza Virus 2019-06-19 Completed Universit y of Vaccine Quad .5 mL 00:00:00 [facility] 6+ [place] Influenza Virus 2019-06-19 Completed Universit y of Vaccine 00:00:00 [facility] Influenza Virus 2019-06-19 Completed Universit y of Vaccine Quad .5 mL 00:00:00 [facility] 6+ [place] Influenza Virus 2019-06-19 Completed Universit y of Vaccine 00:00:00 [facility] Influenza Virus 2019-06-19 Completed Universit y of Vaccine Quad .5 mL 00:00:00 [facility] 6+ [place] Influenza Virus 2019-06-19 Completed Universit y of Vaccine 00:00:00 [facility] Influenza Virus 2019-06-19 Completed Universit y of Vaccine Quad .5 mL 00:00:00 [facility] 6+ [place] Influenza Virus 2019-06-19 Completed Universit y of Vaccine 00:00:00 [facility] Influenza Virus 2019-06-19 Completed Universit y of Vaccine Quad .5 mL 00:00:00 [facility] 6+ [place] Influenza Virus 2019-06-19 Completed Universit y of Vaccine 00:00:00 [facility] Influenza Virus 2019-06-19 Completed Universit y of Vaccine Quad .5 mL 00:00:00 [facility] 6+ [place] Influenza Virus 2019-06-19 Completed Universit y of Vaccine 00:00:00 [facility] Influenza Virus 2019-06-19 Completed Universit y of Vaccine Quad .5 mL 00:00:00 [facility] 6+ [place] Influenza Virus 2019-06-19 Completed Universit y of Vaccine 00:00:00 [facility] Influenza Virus 2019-06-19 Completed Universit y of Vaccine Quad .5 mL 00:00:00 [facility] 6+ [place] Influenza Virus 2019-06-19 Completed Universit y of Vaccine 00:00:00 [facility] Influenza Virus 2019-06-19 Completed Universit y of Vaccine Quad .5 mL 00:00:00 [facility] 6+ [place] (FLUZONE/FLULAVAL/FL UARIX) Influenza Virus 2019-06-19 Completed Universit y of Vaccine 00:00:00 [facility] Influenza Virus 2019-06-19 Completed Universit y of Vaccine Quad .5 mL 00:00:00 [facility] 6+ MO Branch (FLUZONE/FLULAVAL/FL UARIX) Influenza Virus 2019-06-19 Completed Universit y of Vaccine 00:00:00 [facility] Influenza Virus 2019-06-19 Completed Universit y of Vaccine Quad .5 mL 00:00:00 [facility] 6+ MO Branch (FLUZONE/FLULAVAL/FL UARIX) Influenza Virus 2019-06-19 Completed Universit y of Vaccine 00:00:00 [facility] Influenza Virus 2019-06-19 Completed Universit y of Vaccine Quad .5 mL 00:00:00 [facility] 6+ [place] (FLUZONE/FLULAVAL/FL UARIX) Influenza Virus 2019-06-19 Completed Universit y of Vaccine 00:00:00 [facility] Influenza Virus 2019-06-19 Completed Universit y of Vaccine Quad .5 mL 00:00:00 [facility] 6+ [place] (FLUZONE/FLULAVAL/FL UARIX) Influenza Virus 2019-06-19 Completed Universit y of Vaccine 00:00:00 [facility] HPV 2017-02-11 Completed University of 00:00:00 [facility] Meningococcal 2017-02-11 Completed University of Polysaccharide 00:00:00 [place] [facility] (groups A, C, Y and Branc h W-135) conjugate vaccine (MCV4P) HPV 2017-02-11 Completed University of 00:00:00 [facility] Meningococcal 2017-02-11 Completed University of Polysaccharide 00:00:00 [place] Med[facility] anna (groups A, C, Y and Branc h W-135) conjugate vaccine (MCV4P) HPV 2017-02-11 Completed University of 00:00:00 [facility] Meningococcal 2017-02-11 Completed University of Polysaccharide 00:00:00 [place] Medi anna (groups A, C, Y and Branc h W-135) conjugate vaccine (MCV4P) HPV 2017-02-11 Completed University of 00:00:00 [facility] Meningococcal 2017-02-11 Completed University of Polysaccharide 00:00:00 [place] Medi anna (groups A, C, Y and Branc h W-135) conjugate vaccine (MCV4P) HPV 2017-02-11 Completed University of 00:00:00 [facility] Meningococcal 2017-02-11 Completed University of Polysaccharide 00:00:00 [place] [facility] anna (groups A, C, Y and Branc h W-135) conjugate vaccine (MCV4P) HPV 2017-02-11 Completed University of 00:00:00 [facility] Meningococcal 2017-02-11 Completed University of Polysaccharide 00:00:00 [place] Medi anna (groups A, C, Y and Branc h W-135) conjugate vaccine (MCV4P) HPV9 2017-02-11 Completed University of 00:00:00 [facility] HPV 2017-02-11 Completed University of 00:00:00 [facility] Meningococcal 2017-02-11 Completed University of Polysaccharide 00:00:00 [place] Medi anna (groups A, C, Y and Branc h W-135) conjugate vaccine (MCV4P) HPV9 2017-02-11 Completed University of 00:00:00 [facility] HPV 2017-02-11 Completed University of 00:00:00 [facility] Meningococcal 2017-02-11 Completed University of Polysaccharide 00:00:00 [place] Medi anna (groups A, C, Y and Branc h W-135) conjugate vaccine (MCV4P) HPV2017-02-11 Completed University of 00:00:00 [facility] HPV 2017-02-11 Completed University of 00:00:00 [facility] Meningococcal 2017-02-11 Completed University of Polysaccharide 00:00:00 [place] Medi anna (groups A, C, Y and Branc h W-135) conjugate vaccine (MCV4P) HPV2017-02-11 Completed University of 00:00:00 [facility] HPV 2017-02-11 Completed University of 00:00:00 [facility] Meningococcal 2017-02-11 Completed University of Polysaccharide 00:00:00 [place] Medi anna (groups A, C, Y and Branc h W-135) conjugate vaccine (MCV4P) HPV2017-02-11 Completed University of 00:00:00 [facility] Branch HPV 2017-02-11 Completed University of 00:00:00 [facility] Meningococcal 2017-02-11 Completed University of Polysaccharide 00:00:00 [place] [facility] anna (groups A, C, Y and Branc h W-135) conjugate vaccine (MCV4P) HPV9 2017-02-11 Completed University of 00:00:00 [facility] HPV 2017-02-11 Completed University of 00:00:00 [facility] Meningococcal 2017-02-11 Completed University of Polysaccharide 00:00:00 [place] [facility]na (groups A, C, Y and Branc h W-135) conjugate vaccine (MCV4P) HPV9 2017-02-11 Completed University of 00:00:00 [facility] HPV 2017-02-11 Completed University of 00:00:00 [facility] Meningococcal 2017-02-11 Completed University of Polysaccharide 00:00:00 [place] [facility] (groups A, C, Y and Branc h W-135) conjugate vaccine (MCV4P) HPV9 2017-02-11 Completed [facility] 00:00:00 [facility] HPV 2011-06-04 Completed [facility] 00:00:00 [facility] Influenza Virus 2011-06-04 Completed [facility] Vaccine 00:00:00 [facility] Meningococcal 2011-06-04 Completed [facility] Polysaccharide 00:00:00 [place] [facility] (groups A, C, Y and Branc h W-135) conjugate vaccine (MCV4P) TDAP 2011-06-04 Completed [facility] 00:00:00 [facility] HPV 2011-06-04 Completed [facility] 00:00:00 [facility] Influenza Virus 2011-06-04 Completed [facility] Vaccine 00:00:00 [facility] Meningococcal 2011-06-04 Completed [facility] Polysaccharide 00:00:00 [place] [facility] (groups A, C, Y and Branc h W-135) conjugate vaccine (MCV4P) TDAP 2011-06-04 Completed [facility] 00:00:00 [facility] HPV 2011-06-04 Completed [facility] 00:00:00 [facility] Influenza Virus 2011-06-04 Completed [facility] Vaccine 00:00:00 [facility] Meningococcal 2011-06-04 Completed [facility] Polysaccharide 00:00:00 [place] [facility] (groups A, C, Y and Branc h W-135) conjugate vaccine (MCV4P) TDAP 2011-06-04 Completed [facility] 00:00:00 [facility] HPV 2011-06-04 Completed [facility] 00:00:00 [facility] Influenza Virus 2011-06-04 Completed [facility] Vaccine 00:00:00 [facility] Meningococcal 2011-06-04 Completed [facility] Polysaccharide 00:00:00 [place] [facility] (groups A, C, Y and Branc h W-135) conjugate vaccine (MCV4P) TDAP 2011-06-04 Completed [facility] 00:00:00 [facility] HPV 2011-06-04 Completed [facility] 00:00:00 [facility] Influenza Virus 2011-06-04 Completed [facility] Vaccine 00:00:00 [facility] Meningococcal 2011-06-04 Completed [facility] Polysaccharide 00:00:00 [place] [facility] (groups A, C, Y and Branc h W-135) conjugate vaccine (MCV4P) TDAP 2011-06-04 Completed [facility] 00:00:00 [facility] HPV 2011-06-04 Completed [facility] 00:00:00 [facility] Influenza Virus 2011-06-04 Completed [facility] Vaccine 00:00:00 [facility] Meningococcal 2011-06-04 Completed [facility] Polysaccharide 00:00:00 [place] [facility] (groups A, C, Y and Branc h W-135) conjugate vaccine (MCV4P) TDAP 2011-06-04 Completed [facility] 00:00:00 [facility] Influenza Virus 2011-06-04 Completed [facility] Vaccine Nasal 00:00:00 [facility] HPV 2011-06-04 Completed [facility] 00:00:00 [facility] Influenza Virus 2011-06-04 Completed [facility] Vaccine 00:00:00 [facility] Meningococcal 2011-06-04 Completed [facility] Polysaccharide 00:00:00 [place] [facility] (groups A, C, Y and Branc h W-135) conjugate vaccine (MCV4P) TDAP 2011-06-04 Completed [facility] 00:00:00 [facility] Influenza Virus 2011-06-04 Completed [facility] Vaccine Nasal 00:00:00 [facility] HPV 2011-06-04 Completed [facility] 00:00:00 [facility] Influenza Virus 2011-06-04 Completed [facility] Vaccine 00:00:00 [facility] Meningococcal 2011-06-04 Completed [facility] Polysaccharide 00:00:00 [place] [facility] (groups A, C, Y and Branc h W-135) conjugate vaccine (MCV4P) TDAP 2011-06-04 Completed [facility] 00:00:00 [facility] Influenza Virus 2011-06-04 Completed [facility] Vaccine Nasal 00:00:00 [facility] HPV 2011-06-04 Completed [facility] 00:00:00 [facility] Influenza Virus 2011-06-04 Completed [facility] Vaccine 00:00:00 [facility] Meningococcal 2011-06-04 Completed [facility] Polysaccharide 00:00:00 [place] [facility] (groups A, C, Y and Branc h W-135) conjugate vaccine (MCV4P) TDAP 2011-06-04 Completed [facility] 00:00:00 [facility] Influenza Virus 2011-06-04 Completed [facility] Vaccine Nasal 00:00:00 [facility] HPV 2011-06-04 Completed [facility] 00:00:00 [facility] Influenza Virus 2011-06-04 Completed [facility] Vaccine 00:00:00 [facility] Meningococcal 2011-06-04 Completed [facility] Polysaccharide 00:00:00 [place] [facility] (groups A, C, Y and Branc h W-135) conjugate vaccine (MCV4P) TDAP 2011-06-04 Completed [facility] 00:00:00 [facility] Influenza Virus 2011-06-04 Completed [facility] Vaccine Nasal 00:00:00 [facility] HPV 2011-06-04 Completed [facility] 00:00:00 [facility] Influenza Virus 2011-06-04 Completed [facility] Vaccine 00:00:00 [facility] Meningococcal 2011-06-04 Completed [facility] Polysaccharide 00:00:00 [place] [facility] (groups A, C, Y and Branc h W-135) conjugate vaccine (MCV4P) TDAP 2011-06-04 Completed [facility] 00:00:00 [facility] Influenza Virus 2011-06-04 Completed [facility] Vaccine Nasal 00:00:00 [facility] HPV 2011-06-04 Completed [facility] 00:00:00 [facility] Influenza Virus 2011-06-04 Completed [facility] Vaccine 00:00:00 [facility] Meningococcal 2011-06-04 Completed [facility] Polysaccharide 00:00:00 [place] [facility] (groups A, C, Y and Branc h W-135) conjugate vaccine (MCV4P) TDAP 2011-06-04 Completed [facility] 00:00:00 [facility] Influenza Virus 2011-06-04 Completed [facility] Vaccine Nasal 00:00:00 [facility] HPV 2011-06-04 Completed [facility] 00:00:00 [facility] Influenza Virus 2011-06-04 Completed [facility] Vaccine 00:00:00 [facility] Meningococcal 2011-06-04 Completed [facility] 00:[facility] (groups A, C, Y and Branc h W-135) conjugate vaccine (MCV4P) TDAP 2011-06-04 Completed [facility] 00:00:00 [facility] Influenza Virus 2011-06-04 Completed [facility] Vaccine Nasal 00:00:00 [facility] Influenza Virus 2010-05-20 Completed [facility] Vaccine 00:00:00 [facility] Influenza Virus 2010-05-20 Completed [facility] Vaccine 00:00:00 [facility] Influenza Virus 2010-05-20 Completed [facility] Vaccine 00:00:00 [facility] Influenza Virus 2010-05-20 Completed [facility] Vaccine 00:00:00 [facility] Influenza Virus 2010-05-20 Completed [facility] Vaccine 00:00:00 [facility] Influenza Virus 2010-05-20 Completed [facility] Vaccine 00:00:00 [facility] Influenza Virus 2010-05-20 Completed [facility] Vaccine Nasal 00:00:00 [facility] Influenza Virus 2010-05-20 Completed [facility] Vaccine 00:00:00 [facility] Influenza Virus 2010-05-20 Completed [facility] of Vaccine Nasal 00:00:00 [facility] Influenza Virus 2010-05-20 Completed [facility] Vaccine 00:00:00 [facility] Influenza Virus 2010-05-20 Completed [facility] Vaccine Nasal 00:00:00 [facility] Influenza Virus 2010-05-20 Completed [facility] Vaccine 00:00:00 [facility] Influenza Virus 2010-05-20 Completed [facility] Vaccine Nasal 00:00:00 [facility] Influenza Virus 2010-05-20 Completed [facility] Vaccine 00:00:00 [facility] Influenza Virus 2010-05-20 Completed [facility] of Vaccine Nasal 00:00:00 [facility] Influenza Virus 2010-05-20 Completed [facility] Vaccine 00:00:00 [facility] Influenza Virus 2010-05-20 Completed [facility] Vaccine Nasal 00:00:00 [facility] Influenza Virus 2010-05-20 Completed [facility] Vaccine 00:00:00 [facility] Influenza Virus 2010-05-20 Completed [facility] Vaccine Nasal 00:00:00 [facility] Influenza Virus 2010-05-20 Completed [facility] Vaccine 00:00:00 [facility] Influenza Virus 2010-05-20 Completed [facility] Vaccine Nasal 00:00:00 [facility] Varicella 2010-04-23 Completed [facility] (varivax)(chicken [...] 2009-04-30 Completed [facility] Vaccine 00:00:00 [facility] Influenza Virus 2009-04-30 Completed [facility] Vaccine 00:00:00 [facility] Influenza Virus 2009-04-30 Completed [facility] Vaccine 00:00:00 [facility] Influenza Virus 2009-04-30 Completed [facility] Vaccine 00:00:00 [facility] Influenza Virus 2009-04-30 Completed [facility] Vaccine 00:00:00 [facility] Influenza Virus 2009-04-30 Completed [facility] Vaccine 00:00:00 [facility] Influenza Virus 2009-04-30 Completed [facility] of Vaccine - Whole 00:00:00 [facility] Influenza Virus 2009-04-30 Completed [facility] Vaccine 00:00:00 [facility] Influenza Virus 2009-04-30 Completed [facility] of Vaccine - Whole 00:00:00 [facility] Influenza Virus 2009-04-30 Completed [facility] Vaccine 00:00:00 [facility] Influenza Virus 2009-04-30 Completed [facility] of Vaccine - Whole 00:00:00 [facility] Influenza Virus 2009-04-30 Completed [facility] Vaccine 00:00:00 [facility] Influenza Virus 2009-04-30 Completed [facility] of Vaccine - Whole 00:00:00 [facility] Influenza Virus 2009-04-30 Completed [facility] Vaccine 00:00:00 [facility] Influenza Virus 2009-04-30 Completed [facility] of Vaccine - Whole 00:00:00 [facility] Influenza Virus 2009-04-30 Completed [facility] Vaccine 00:00:00 [facility] Influenza Virus 2009-04-30 Completed [facility] of Vaccine - Whole 00:00:00 [facility] Influenza Virus 2009-04-30 Completed [facility] Vaccine 00:00:00 [facility] Influenza Virus 2009-04-30 Completed [facility] of Vaccine - Whole 00:00:00 [facility] Influenza Virus 2009-04-30 Completed [facility] Vaccine 00:00:00 [facility] Influenza Virus 2009-04-30 Completed [facility] of Vaccine - Whole 00:00:00 [facility] Influenza Virus 2008-08-06 Completed [facility] Vaccine 00:00:00 [facility] Influenza Virus 2008-08-06 Completed [facility] Vaccine 00:00:00 [facility] Influenza Virus 2008-08-06 Completed [facility] Vaccine 00:00:00 [facility] Influenza Virus 2008-08-06 Completed [facility] Vaccine 00:00:00 [facility] Influenza Virus 2008-08-06 Completed [facility] Vaccine 00:00:00 [facility] Influenza Virus 2008-08-06 Completed [facility] Vaccine 00:00:00 [facility] Flu Trivalent 2008-08-06 Completed [facility] 00:00:00 [facility] Influenza Virus 2008-08-06 Completed [facility] Vaccine 00:00:00 [facility] Flu Trivalent 2008-08-06 Completed [facility] 00:00:00 [facility] Influenza Virus 2008-08-06 Completed [facility] Vaccine 00:00:00 [facility] Flu Trivalent 2008-08-06 Completed [facility] 00:00:00 [facility] Influenza Virus 2008-08-06 Completed [facility] Vaccine 00:00:00 [facility] Flu Trivalent 2008-08-06 Completed [facility] 00:00:00 [facility] Influenza Virus 2008-08-06 Completed [facility] Vaccine 00:00:00 [facility] Flu Trivalent 2008-08-06 Completed [facility] 00:00:00 [facility] Influenza Virus 2008-08-06 Completed [facility] Vaccine 00:00:00 [facility] Flu Trivalent 2008-08-06 Completed [facility] 00:00:00 [facility] Influenza Virus 2008-08-06 Completed [facility] Vaccine 00:00:00 [facility] Flu Trivalent 2008-08-06 Completed [facility] 00:00:00 [facility] Influenza Virus 2008-08-06 Completed [facility] Vaccine 00:00:00 [facility] Flu Trivalent 2008-08-06 Completed [facility] 00:00:00 [facility] HEPATITIS A 2005-06-03 Completed [facility] 00:00:00 [facility] HEPATITIS A 2005-06-03 Completed [facility] 00:00:00 [facility] HEPATITIS A 2005-06-03 Completed [facility] 00:00:00 [facility] HEPATITIS A 2005-06-03 Completed [facility] 00:00:00 [facility] HEPATITIS A 2005-06-03 Completed [facility] 00:00:00 [facility] HEPATITIS A 2005-06-03 Completed [facility] 00:00:00 [facility] HEPATITIS A 2005-06-03 Completed [facility] 00:00:00 [facility] HEPATITIS A 2005-06-03 Completed [facility] 00:00:00 [facility] HEPATITIS A 2005-06-03 Completed [facility] 00:00:00 [facility] HEPATITIS A 2005-06-03 Completed [facility] 00:00:00 [facility] HEPATITIS A 2005-06-03 Completed [facility] 00:00:00 [facility] HEPATITIS A 2005-06-03 Completed [facility] 00:00:00 [facility] HEPATITIS A 2005-06-03 Completed [facility] 00:00:00 [facility] DTAP 2004-10-01 Completed [facility] 00:00:00 [facility] HEPATITIS A 2004-10-01 Completed [facility] 00:00:00 [facility] MMR 2004-10-01 Completed [facility] 00:00:00 [facility] Polio (IPV/OPV) 2004-10-01 Completed [facility] 00:00:00 [facility] DTAP 2004-10-01 Completed [facility] 00:00:00 [facility] HEPATITIS A 2004-10-01 Completed [facility] 00:00:00 [facility] MMR 2004-10-01 Completed [facility] 00:00:00 [facility] Polio (IPV/OPV) 2004-10-01 Completed [facility] 00:00:00 [facility] DTAP 2004-10-01 Completed [facility] 00:00:00 [facility] HEPATITIS A 2004-10-01 Completed [facility] 00:00:00 [facility] MMR 2004-10-01 Completed [facility] 00:00:00 [facility] Polio (IPV/OPV) 2004-10-01 Completed [facility] 00:00:00 [facility] DTAP 2004-10-01 Completed [facility] 00:00:00 [facility] HEPATITIS A 2004-10-01 Completed [facility] 00:00:00 [facility] MMR 2004-10-01 Completed [facility] 00:00:00 [facility] Polio (IPV/OPV) 2004-10-01 Completed [facility] 00:00:00 [facility] DTAP 2004-10-01 Completed [facility] 00:00:00 [facility] HEPATITIS A 2004-10-01 Completed [facility] 00:00:00 [facility] MMR 2004-10-01 Completed [facility] 00:00:00 [facility] Polio (IPV/OPV) 2004-10-01 Completed [facility] 00:00:00 [facility] DTAP 2004-10-01 Completed [facility] 00:00:00 [facility] HEPATITIS A 2004-10-01 Completed [facility] 00:00:00 [facility] MMR 2004-10-01 Completed [facility] 00:00:00 [facility] Polio (IPV/OPV) 2004-10-01 Completed [facility] 00:00:00 [facility] DTaP, Unspecified 2004-10-01 Completed Univers ity of Formulation 00:00:00 [facility] IPV 2004-10-01 Completed [facility] 00:00:00 [facility] DTAP 2004-10-01 Completed [facility] 00:00:00 [facility] HEPATITIS A 2004-10-01 Completed [facility] 00:00:00 [facility] MMR 2004-10-01 Completed [facility] 00:00:00 [facility] Polio (IPV/OPV) 2004-10-01 Completed [facility] 00:00:00 [facility] DTaP, Unspecified 2004-10-01 Completed Univers ity of Formulation 00:00:00 [facility] IPV 2004-10-01 Completed [facility] 00:00:00 [facility] DTAP 2004-10-01 Completed [facility] 00:00:00 [facility] HEPATITIS A 2004-10-01 Completed [facility] 00:00:00 [facility] MMR 2004-10-01 Completed [facility] 00:00:00 [facility] Polio (IPV/OPV) 2004-10-01 Completed [facility] 00:00:00 [facility] DTaP, Unspecified 2004-10-01 Completed [facility] ity of Formulation 00:00:00 [facility] IPV 2004-10-01 Completed [facility] 00:00:00 [facility] DTAP 2004-10-01 Completed [facility] 00:00:00 [facility] HEPATITIS A 2004-10-01 Completed [facility] 00:00:00 [facility] MMR 2004-10-01 Completed [facility] 00:00:00 [facility] Polio (IPV/OPV) 2004-10-01 Completed [facility] 00:00:00 [facility] DTaP, Unspecified 2004-10-01 Completed [facility] ity of Formulation 00:00:00 [facility] IPV 2004-10-01 Completed [facility] 00:00:00 [facility] DTAP 2004-10-01 Completed [facility] 00:00:00 [facility] HEPATITIS A 2004-10-01 Completed [facility] 00:00:00 [facility] MMR 2004-10-01 Completed [facility] 00:00:00 [facility] Polio (IPV/OPV) 2004-10-01 Completed [facility] 00:00:00 [facility] DTaP, Unspecified 2004-10-01 Completed Univers ity of Formulation 00:00:00 [facility] IPV 2004-10-01 Completed [facility] 00:00:00 [facility] DTAP 2004-10-01 Completed [facility] 00:00:00 [facility] HEPATITIS A 2004-10-01 Completed [facility] 00:00:00 [facility] MMR 2004-10-01 Completed [facility] 00:00:00 [facility] Polio (IPV/OPV) 2004-10-01 Completed [facility] 00:00:00 [facility] DTaP, Unspecified 2004-10-01 Completed [facility] ity of Formulation 00:00:00 [facility] IPV 2004-10-01 Completed [facility] 00:00:00 [facility] DTAP 2004-10-01 Completed [facility] 00:00:00 [facility] HEPATITIS A 2004-10-01 Completed [facility] 00:00:00 [facility] MMR 2004-10-01 Completed [facility] 00:00:00 [facility] Polio (IPV/OPV) 2004-10-01 Completed [facility] 00:00:00 [facility] DTaP, Unspecified 2004-10-01 Completed [facility] it[facility] of Formulation 00:00:00 [facility] IPV 2004-10-01 Completed [facility] 00:00:00 [facility] DTAP 2004-10-01 Completed [facility] 00:00:00 [facility] HEPATITIS A 2004-10-01 Completed [facility] 00:00:00 [facility] MMR 2004-10-01 Completed [facility] 00:00:00 [facility] Polio (IPV/OPV) 2004-10-01 Completed [facility] 00:00:00 [facility] DTaP, Unspecified 2004-10-01 Completed [facility] it[facility] of Formulation 00:00:00 [facility] IPV 2004-10-01 Completed [facility] 00:00:00 [facility] DTAP 2001-10-03 Completed [facility] 00:00:00 [facility] HIB 4 Dose Schedule 2001-10-03 Completed Unive rsity of 00:00:00 [facility] Varicella 2001-10-03 Completed [facility] (varivax)(chicken 00:00:00 [place] [facility] DTAP 2001-10-03 Completed [facility] 00:00:00 [facility] HIB 4 Dose Schedule 2001-10-03 Completed Unive rsity of 00:00:00 [facility] Varicella 2001-10-03 Completed [facility] (varivax)(chicken 00:00:00 [place] [facility] DTAP 2001-10-03 Completed [facility] 00:00:00 [facility] HIB 4 Dose Schedule 2001-10-03 Completed Unive rsity of 00:00:00 [facility] Varicella 2001-10-03 Completed [facility] (varivax)(chicken 00:00:00 [place] [facility] DTAP 2001-10-03 Completed [facility] 00:00:00 [facility] HIB 4 Dose Schedule 2001-10-03 Completed Unive rsity of 00:00:00 [facility] Varicella 2001-10-03 Completed [facility] (varivax)(chicken 00:00:00 [place] [facility] DTAP 2001-10-03 Completed [facility] 00:00:00 [facility] HIB 4 Dose Schedule 2001-10-03 Completed Unive rsity of 00:00:00 [facility] Varicella 2001-10-03 Completed [facility] (varivax)(chicken 00:00:00 [place] [facility] DTAP 2001-10-03 Completed [facility] 00:00:00 [facility] HIB 4 Dose Schedule 2001-10-03 Completed Unive rsity of 00:00:00 [facility] Varicella 2001-10-03 Completed [facility] (varivax)(chicken 00:00:00 [place] [facility] DTaP, Unspecified 2001-10-03 Completed [facility] ity of Formulation 00:00:00 [facility] DTAP 2001-10-03 Completed [facility] 00:00:00 [facility] HIB 4 Dose Schedule 2001-10-03 Completed Unive rsity of 00:00:00 [facility] Varicella 2001-10-03 Completed [facility] (varivax)(chicken 00:00:00 [place] [facility] DTaP, Unspecified 2001-10-03 Completed [facility] it[facility] of Formulation 00:00:00 [facility] DTAP 2001-10-03 Completed [facility] 00:00:00 [facility] HIB 4 Dose Schedule 2001-10-03 Completed Unive rsity of 00:00:00 [facility] Varicella 2001-10-03 Completed [facility] (varivax)(chicken 00:00:00 [place] [facility] DTaP, Unspecified 2001-10-03 Completed [facility] ity of Formulation 00:00:00 [facility] DTAP 2001-10-03 Completed [facility] 00:00:00 [facility] HIB 4 Dose Schedule 2001-10-03 Completed Unive rsity of 00:00:00 [facility] Varicella 2001-10-03 Completed [facility] (varivax)(chicken 00:00:00 [place] [facility] DTaP, Unspecified 2001-10-03 Completed [facility] 00:[facility] [place] DTAP 2001-10-03 Completed [facility] 00:00:00 [facility] [place] HIB 4 Dose Schedule 2001-10-03 Completed Unive rsity of 00:00:00 [facility] [place] Varicella 2001-10-03 Completed [facility] of (varivax)(chicken 00:00:00 [place] [facility] DTaP, Unspecified 2001-10-03 Completed [facility] ity of Formulation 00:00:00 [facility] [place] DTAP 2001-10-03 Completed [facility] 00:00:00 [facility] [place] HIB 4 Dose Schedule 2001-10-03 Completed [facility]ive rs[facility] of 00:00:00 [facility] [place] Varicella 2001-10-03 Completed [facility] (varivax)(chicken 00:00:00 [place] [facility] DTaP, Unspecified 2001-10-03 Completed [facility] it[facility] Formulation 00:00:00 [facility] [place] DTAP 2001-10-03 Completed [facility] 00:00:00 [facility] [place] HIB 4 Dose Schedule 2001-10-03 Completed [facility] rs[facility] of 00:00:00 [facility] [place] Varicella 2001-10-03 Completed [facility] (varivax)(chicken 00:00:00 [place] [facility] DTaP, Unspecified 2001-10-03 Completed [facility] it[facility] Formulation 00:00:00 [facility] [place] DTAP 2001-10-03 Completed [facility] 00:00:00 [facility] [place] HIB 4 Dose Schedule 2001-10-03 Completed [facility] rs[facility] of 00:00:00 [facility] [place] Varicella 2001-10-03 Completed [facility] (varivax)(chicken 00:00:00 [place] [facility] DTaP, Unspecified 2001-10-03 Completed [facility] Formulation 00:00:00 [facility] Hep B, Adol or Pedi 2001-04-18 Completed [facility]ive rsity of Dosage 00:00:00 [facility] [place] MMR 2001-04-18 Completed [facility] 00:00:00 [facility] Polio (IPV/OPV) 2001-04-18 Completed [facility]it [facility] 00:00:00 [facility] Hep B, Adol or Pedi 2001-04-18 Completed [facility]ive rs[facility] of Dosage 00:00:00 [facility] [place] MMR 2001-04-18 Completed [facility] 00:00:00 [facility] Polio (IPV/OPV) 2001-04-18 Completed [facility] 00:00:00 [facility] Hep B, Adol or Pedi 2001-04-18 Completed [facility]ive rs[facility] of Dosage 00:00:00 [facility] [place] MMR 2001-04-18 Completed [facility] 00:00:00 [facility] Polio (IPV/OPV) 2001-04-18 Completed [facility] 00:00:00 [facility] Hep B, Adol or Pedi 2001-04-18 Completed [facility] of Dosage 00:00:00 [facility] [place] MMR 2001-04-18 Completed [facility] 00:00:00 [facility] Polio (IPV/OPV) 2001-04-18 Completed [facility] 00:00:00 [facility] Hep B, Adol or Pedi 2001-04-18 Completed [facility]ive rs[facility] of Dosage 00:00:00 [facility] [place] MMR 2001-04-18 Completed [facility] 00:00:00 [facility] Polio (IPV/OPV) 2001-04-18 Completed [facility] 00:00:00 [facility] Hep B, Adol or Pedi 2001-04-18 Completed [facility] of Dosage 00:00:00 [facility] [place] MMR 2001-04-18 Completed [facility] 00:00:00 [facility] Polio (IPV/OPV) 2001-04-18 Completed [facility] 00:00:00 [facility] IPV 2001-04-18 Completed [facility] 00:00:00 [facility] Hep B, Adol or Pedi 2001-04-18 Completed [facility] of Dosage 00:00:00 [facility] [place] MMR 2001-04-18 Completed [facility] 00:00:00 [facility] Polio (IPV/OPV) 2001-04-18 Completed [facility] 00:00:00 [facility] IPV 2001-04-18 Completed [facility] 00:00:00 [facility] Hep B, Adol or Pedi 2001-04-18 Completed [facility] of Dosage 00:00:00 [facility] MMR 2001-04-18 Completed [facility] 00:00:00 [facility] Polio (IPV/OPV) 2001-04-18 Completed [facility] 00:00:00 [facility] IPV 2001-04-18 Completed [facility] 00:00:00 [facility] Hep B, Adol or Pedi 2001-04-18 Completed [facility]ive [facility] of Dosage 00:00:00 [facility] MMR 2001-04-18 Completed [facility] 00:00:00 [facility] Polio (IPV/OPV) 2001-04-18 Completed [facility] 00:00:00 [facility] IPV 2001-04-18 Completed [facility] 00:00:00 [facility] Hep B, Adol or Pedi 2001-04-18 Completed [facility] of Dosage 00:00:00 [facility] MMR 2001-04-18 Completed [facility] 00:00:00 [facility] Polio (IPV/OPV) 2001-04-18 Completed [facility] 00:00:00 [facility] IPV 2001-04-18 Completed [facility] 00:00:00 [facility] Hep B, Adol or Pedi 2001-04-18 Completed [facility]ive rs[facility] of Dosage 00:00:00 [facility] MMR 2001-04-18 Completed [facility] 00:00:00 [facility] Polio (IPV/OPV) 2001-04-18 Completed [facility] 00:00:00 [facility] IPV 2001-04-18 Completed [facility] 00:00:00 [facility] Hep B, Adol or Pedi 2001-04-18 Completed [facility] of Dosage 00:00:00 [facility] MMR 2001-04-18 Completed [facility] 00:00:00 [facility] Polio (IPV/OPV) 2001-04-18 Completed [facility] 00:00:00 [facility] IPV 2001-04-18 Completed [facility] 00:00:00 [facility] Hep B, Adol or Pedi 2001-04-18 Completed [facility] of Dosage 00:00:00 [facility] [place] MMR 2001-04-18 Completed [facility] 00:00:00 [facility] [place] Polio (IPV/OPV) 2001-04-18 Completed [facility] 00:00:00 [facility] [place] IPV 2001-04-18 Completed [facility] 00:00:00 [facility] [place] DTAP 2000 Completed [facility] 00:00:00 [facility] [place] HIB 4 Dose Schedule 2000 Completed [facility] 00:00:00 [facility] [place] DTAP 2000 Completed [facility] 00:00:00 [facility] [place] HIB 4 Dose Schedule 2000 Completed [facility] 00:00:00 [facility] [place] DTAP 2000 Completed [facility] 00:00:00 [facility] [place] HIB 4 Dose Schedule 2000 Completed [facility] 00:00:00 [facility] [place] DTAP 2000 Completed [facility] 00:00:00 [facility] [place] HIB 4 Dose Schedule 2000 Completed [facility] of 00:00:00 [facility] [place] DTAP 2000 Completed [facility] 00:00:00 [facility] [place] HIB 4 Dose Schedule 2000 Completed [facility] 00:00:00 [facility] [place] DTAP 2000 Completed [facility] 00:00:00 [facility] [place] HIB 4 Dose Schedule 2000 Completed [facility]ive [facility] of 00:00:00 [facility] [place] DTaP, Unspecified 2000 Completed [facility] it[facility] Formulation 00:00:00 [facility] [place] DTAP 2000 Completed [facility] 00:00:00 [facility] [place] HIB 4 Dose Schedule 2000 Completed [facility] of 00:00:00 [facility] [place] DTaP, Unspecified 2000 Completed [facility] Formulation 00:00:00 [facility] [place] DTAP 2000 Completed [facility] 00:00:00 [facility] [place] HIB 4 Dose Schedule 2000 Completed [facility] 00:00:00 [facility] [place] DTaP, Unspecified 2000 Completed [facility] Formulation 00:00:00 [facility] [place] DTAP 2000 Completed [facility] 00:00:00 [facility] [place] HIB 4 Dose Schedule 2000 Completed [facility] 00:00:00 [facility] [place] DTaP, Unspecified 2000 Completed [facility] Formulation 00:00:00 [facility] [place] DTAP 2000 Completed [facility] 00:00:00 [facility] [place] HIB 4 Dose Schedule 2000 Completed [facility] 00:00:00 [facility] [place] DTaP, Unspecified 2000 Completed [facility] Formulation 00:00:00 [facility] [place] DTAP 2000 Completed [facility] 00:00:00 [facility] [place] HIB 4 Dose Schedule 2000 Completed [facility] of 00:00:00 [facility] DTaP, Unspecified 2000 Completed [facility] Formulation 00:00:00 [facility] [place] DTAP 2000 Completed [facility] 00:00:00 [facility] [place] HIB 4 Dose Schedule 2000 Completed [facility] of 00:00:00 [facility] [place] DTaP, Unspecified 2000 Completed [facility] Formulation 00:00:00 [facility] [place] DTAP 2000 Completed [facility] 00:00:00 [facility] [place] HIB 4 Dose Schedule 2000 Completed [facility] of 00:00:00 [facility] [place] DTaP, Unspecified 2000 Completed [facility] Formulation 00:00:00 [facility] DTAP 2000 Completed [facility] 00:00:00 [facility] [place] HIB 4 Dose Schedule 2000 Completed [facility] 00:00:00 [facility] [place] Hep B, Adol or Pedi 2000 Completed [facility]ive [facility] of Dosage 00:00:00 [facility] [place] Polio (IPV/OPV) 2000 Completed [facility] 00:00:00 [facility] DTAP 2000 Completed [facility] 00:00:00 [facility] [place] HIB 4 Dose Schedule 2000 Completed [facility] 00:00:00 [facility] Hep B, Adol or Pedi 2000 Completed [facility] of Dosage 00:00:00 [facility] [place] Polio (IPV/OPV) 2000 Completed [facility] 00:00:00 [facility] DTAP 2000 Completed [facility] 00:00:00 [facility] HIB 4 Dose Schedule 2000 Completed [facility]ive [facility] of 00:00:00 [facility] Hep B, Adol or Pedi 2000 Completed [facility] of Dosage 00:00:00 [facility] [place] Polio (IPV/OPV) 2000 Completed [facility] 00:00:00 [facility] [place] DTAP 2000 Completed [facility] 00:00:00 [facility] [place] HIB 4 Dose Schedule 2000 Completed [facility] of 00:00:00 [facility] Hep B, Adol or Pedi 2000 Completed [facility] of Dosage 00:00:00 [facility] [place] Polio (IPV/OPV) 2000 Completed [facility] 00:00:00 [facility] DTAP 2000 Completed [facility] 00:00:00 [facility] [place] HIB 4 Dose Schedule 2000 Completed [facility] 00:00:00 [facility] Hep B, Adol or Pedi 2000 Completed [facility] of Dosage 00:00:00 [facility] [place] Polio (IPV/OPV) 2000 Completed [facility] 00:00:00 [facility] DTAP 2000 Completed [facility] 00:00:00 [facility] [place] HIB 4 Dose Schedule 2000 Completed [facility] 00:00:00 [facility] Hep B, Adol or Pedi 2000 Completed [facility] of Dosage 00:00:00 [facility] [place] Polio (IPV/OPV) 2000 Completed [facility] 00:00:00 [facility] [place] DTaP, Unspecified 2000 Completed [facility] Formulation 00:00:00 [facility] [place] IPV 2000 Completed [facility] 00:00:00 [facility] DTAP 2000 Completed [facility] 00:00:00 [facility] [place] HIB 4 Dose Schedule 2000 Completed [facility] 00:00:00 [facility] Hep B, Adol or Pedi 2000 Completed [facility] of Dosage 00:00:00 [facility] [place] Polio (IPV/OPV) 2000 Completed [facility] 00:00:00 [facility] [place] DTaP, Unspecified 2000 Completed [facility] of Formulation 00:00:00 [facility] IPV 2000 Completed [facility] 00:00:00 [facility] DTAP 2000 Completed [facility] 00:00:00 [facility] [place] HIB 4 Dose Schedule 2000 Completed [facility] 00:00:00 [facility] [place] Hep B, Adol or Pedi 2000 Completed [facility] of Dosage 00:00:00 [facility] [place] Polio (IPV/OPV) 2000 Completed [facility] 00:00:00 [facility] DTaP, Unspecified 2000 Completed [facility] Formulation 00:00:00 [facility] IPV 2000 Completed [facility] 00:00:00 [facility] DTAP 2000 Completed [facility] 00:00:00 [facility] [place] HIB 4 Dose Schedule 2000 Completed [facility] 00:00:00 [facility] [place] Hep B, Adol or Pedi 2000 Completed [facility] of Dosage 00:00:00 [facility] [place] Polio (IPV/OPV) 2000 Completed [facility] 00:00:00 [facility] DTaP, Unspecified 2000 Completed [facility] Formulation 00:00:00 [facility] [place] IPV 2000 Completed [facility] 00:00:00 [facility] DTAP 2000 Completed [facility] 00:00:00 [facility] [place] HIB 4 Dose Schedule 2000 Completed [facility] 00:00:00 [facility] Hep B, Adol or Pedi 2000 Completed [facility] of Dosage 00:00:00 [facility] [place] Polio (IPV/OPV) 2000 Completed [facility] 00:00:00 [facility] DTaP, Unspecified 2000 Completed [facility] Formulation 00:00:00 [facility] IPV 2000 Completed [facility] 00:00:00 [facility] DTAP 2000 Completed [facility] 00:00:00 [facility] [place] HIB 4 Dose Schedule 2000 Completed [facility] 00:00:00 [facility] Hep B, Adol or Pedi 2000 Completed [facility] of Dosage 00:00:00 [facility] [place] Polio (IPV/OPV) 2000 Completed [facility] 00:00:00 [facility] [place] DTaP, Unspecified 2000 Completed [facility] Formulation 00:00:00 [facility] [place] IPV 2000 Completed [facility] 00:00:00 [facility] [place] DTAP 2000 Completed [facility] 00:00:00 [facility] [place] HIB 4 Dose Schedule 2000 Completed [facility] 00:00:00 [facility] Hep B, Adol or Pedi 2000 Completed [facility] of Dosage 00:00:00 [facility] [place] Polio (IPV/OPV) 2000 Completed [facility] 00:00:00 [facility] [place] DTaP, Unspecified 2000 Completed [facility] Formulation 00:00:00 [facility] [place] IPV 2000 Completed [facility] 00:00:00 [facility] [place] DTAP 2000 Completed [facility] 00:00:00 [facility] [place] HIB 4 Dose Schedule 2000 Completed [facility] 00:00:00 [facility] [place] Hep B, Adol or Pedi 2000 Completed [facility] of Dosage 00:00:00 [facility] [place] Polio (IPV/OPV) 2000 Completed [facility] 00:00:00 [facility] [place] DTaP, Unspecified 2000 Completed [facility] Formulation 00:00:00 [facility] [place] IPV 2000 Completed [facility] 00:00:00 [facility] [place] Polio (IPV/OPV) 2000 Completed [facility] 00:00:00 [facility] DTaP, Unspecified 2000 Completed [facility] Formulation 00:00:00 [facility] [place] IPV 2000 Completed [facility] 00:00:00 [facility] DTAP 2000 Completed [facility] 00:00:00 [facility] [place] HIB 4 Dose Schedule 2000 Completed [facility] 00:00:00 [facility] [place] Hep B, Adol or Pedi 2000 Completed [facility] of Dosage 00:00:00 [facility] [place] Polio (IPV/OPV) 2000 Completed [facility] 00:00:00 [facility] [place] DTaP, Unspecified 2000 Completed [facility] Formulation 00:00:00 [facility] [place] IPV 2000 Completed [facility] 00:00:00 [facility] DTAP 2000 Completed [facility] 00:00:00 [facility] [place] HIB 4 Dose Schedule 2000 Completed [facility] 00:00:00 [facility] [place] Hep B, Adol or Pedi 2000 Completed [facility] of Dosage 00:00:00 [facility] [place] Polio (IPV/OPV) 2000 Completed [facility] 00:00:00 [facility] [place] DTaP, Unspecified 2000 Completed [facility] Formulation 00:00:00 [facility] [place] IPV 2000 Completed [facility] 00:00:00 [facility] [place] DTAP 2000 Completed [facility] 00:00:00 [facility] [place] HIB 4 Dose Schedule 2000 Completed [facility] 00:00:00 [facility] [place] Hep B, Adol or Pedi 2000 Completed [facility] of Dosage 00:00:00 [facility] [place] Polio (IPV/OPV) 2000 Completed [facility] 00:00:00 [facility] [place] DTaP, Unspecified 2000 Completed [facility] Formulation 00:00:00 [facility] [place] IPV 2000 Completed [facility] 00:00:00 [facility] [place] DTAP 2000 Completed [facility] 00:00:00 [facility] [place] HIB 4 Dose Schedule 2000 Completed [facility] 00:00:00 [facility] Hep B, Adol or Pedi 2000 Completed [facility] of Dosage 00:00:00 [facility] [place] Polio (IPV/OPV) 2000 Completed [facility] 00:00:00 [facility] DTaP, Unspecified 2000 Completed [facility] of Formulation 00:00:00 [facility] IPV 2000 Completed [facility] 00:00:00 [facility] DTAP 2000 Completed [facility] 00:00:00 [facility] [place] HIB 4 Dose Schedule 2000 Completed [facility] 00:00:00 [facility] Hep B, Adol or Pedi 2000 Completed [facility] of Dosage 00:00:00 [facility] [place] Polio (IPV/OPV) 2000 Completed [facility] 00:00:00 [facility] [place] DTaP, Unspecified 2000 Completed [facility] Formulation 00:00:00 [facility] [place] IPV 2000 Completed [facility] 00:00:00 [facility] [place] DTAP 2000 Completed [facility] 00:00:00 [facility] [place] HIB 4 Dose Schedule 2000 Completed [facility] 00:00:00 [facility] [place] Hep B, Adol or Pedi 2000 Completed [facility] of Dosage 00:00:00 [facility] [place] Polio (IPV/OPV) 2000 Completed [facility] 00:00:00 [facility] [place] DTaP, Unspecified 2000 Completed [facility] Formulation 00:00:00 [facility] [place] IPV 2000 Completed [facility] 00:00:00 [facility] [place] DTAP 2000 Completed [facility] 00:00:00 [facility] [place] HIB 4 Dose Schedule 2000 Completed [facility] 00:00:00 [facility] Hep B, Adol or Pedi 2000 Completed [facility] of Dosage 00:00:00 [facility] [place] Polio (IPV/OPV) 2000 Completed [facility] 00:00:00 [facility] [place] DTAP 2000 Completed [facility] 00:00:00 [facility] [place] HIB 4 Dose Schedule 2000 Completed [facility] 00:00:00 [facility] Hep B, Adol or Pedi 2000 Completed [facility] of Dosage 00:00:00 [facility] [place] Polio (IPV/OPV) 2000 Completed [facility] 00:00:00 [facility] [place] DTAP 2000 Completed [facility] 00:00:00 [facility] [place] HIB 4 Dose Schedule 2000 Completed [facility] 00:00:00 [facility] Hep B, Adol or Pedi 2000 Completed [facility] of Dosage 00:00:00 [facility] [place] Polio (IPV/OPV) 2000 Completed [facility] 00:00:00 [facility] [place] DTAP 2000 Completed [facility] 00:00:00 [facility] [place] HIB 4 Dose Schedule 2000 Completed [facility] 00:00:00 [facility] [place] Hep B, Adol or Pedi 2000 Completed [facility] of Dosage 00:00:00 [facility] [place] Polio (IPV/OPV) 2000 Completed [facility] 00:00:00 [facility] [place] DTAP 2000 Completed [facility] 00:00:00 [facility] [place] HIB 4 Dose Schedule 2000 Completed [facility] 00:00:00 [facility] [place] Hep B, Adol or Pedi 2000 Completed [facility] of Dosage 00:00:00 [facility] [place] Polio (IPV/OPV) 2000 Completed [facility] 00:00:00 [facility] [place] DTAP 2000 Completed [facility] 00:00:00 [facility] [place] HIB 4 Dose Schedule 2000 Completed [facility] 00:00:00 [facility] [place] Hep B, Adol or Pedi 2000 Completed [facility] of Dosage 00:00:00 [facility] [place] Polio (IPV/OPV) 2000 Completed [facility] 00:00:00 [facility] [place] DTaP, Unspecified 2000 Completed [facility] it[facility] Formulation 00:00:00 [facility] [place] IPV 2000 Completed [facility] 00:00:00 [facility] [place] DTAP 2000 Completed [facility] 00:00:00 [facility] [place] HIB 4 Dose Schedule 2000 Completed [facility] 00:00:00 [facility] [place] Hep B, Adol or Pedi 2000 Completed [facility] of Dosage 00:00:00 [facility] [place] Influenza Virus Unknown Completed Universit [facility] of Vaccine Quad .5 mL [facility] 6+ MO Branch (FLUZONE/FLULAVAL/FL UARIX) Rho (d) Immune Unknown Completed [facility] DTAP Unknown Completed [facility] DTAP Unknown Completed [facility] DTAP Unknown Completed [facility] DTAP Unknown Completed [facility] DTAP Unknown Completed [facility] HIB 4 Dose Schedule Unknown [facility] D[facility] Completed [facility] HEPATITIS A Unknown Completed [facility] Hep B, Adol or Pedi Unknown Completed [facility] of Dosage [facility] [place] Hep B, Adol or Pedi Unknown Completed [facility] of Dosage [facility] [place] Hep B, Adol or Pedi Unknown Completed Unive rsity [facility] HPV Unknown Completed [facility] HPV Unknown Completed [facility] Influenza Virus Unknown Completed [facility] y Vaccine [facility] [place] Influenza Virus Unknown Completed [facility] Influenza Virus Unknown Completed [facility] Influenza Virus Unknown Completed [facility] Influenza Virus Unknown Completed [facility] Meningococcal Unknown Completed [facility] anna (groups A, C, Y and Branc h W-135) conjugate vaccine (MCV4P) Meningococcal Unknown Completed [facility] Polysaccharide [facility] anna (groups A, C, Y and Branc h W-135) conjugate vaccine (MCV4P) MMR Unknown Completed [facility] MMR Unknown Completed [facility] Polio (IPV/OPV) Unknown Completed [facility] Polio (IPV/OPV) Unknown Completed [facility] Polio (IPV/OPV) Unknown Completed [facility] Polio (IPV/OPV) Unknown Completed [facility] TDAP Unknown Completed [facility] Varicella Unknown Completed [facility] (varivax)(chicken [place] [facility] Varicella Unknown Completed [facility] (varivax)(chicken [place] [facility] Rho (d) Immune Unknown Completed [facility] TDAP Unknown Completed [facility] Rho (d) Immune Unknown Completed [facility] DTaP, Unspecified Unknown Completed [facility] Formulation [facility] [place] DTaP, Unspecified Unknown Completed [facility] Formulation [facility] DTaP, Unspecified Unknown Completed [facility] DTaP, Unspecified Unknown Completed [facility] Form[facility] DTaP, Unspecified Unknown Completed [facility] Formulation [facility] Flu Trivalent Unknown Completed [facility] Influenza Virus Unknown Completed [facility] [place] [facility] Influenza Virus Unknown Completed [facility] [place] [facility] Influenza [facility] Unknown Completed [facility] Vacc[facility] HPV9 Unknown Completed [facility] IPV Unknown Completed [facility] IPV Unknown Completed [facility] IPV Unknown Completed [facility] IPV Unknown Completed [facility] Influenza Virus Unknown Completed Universit y of Vaccine Quad .5 mL [facility] IM 6+ [place] Branch (FLUZONE/FLULAVAL/FL UARIX) Rho (d) Immune Unknown Completed [facility] Globulin [facility] DTAP Unknown Completed [facility] DTAP Unknown Completed [facility] DTAP Unknown Completed [facility] DTAP Unknown Completed [facility] DTAP Unknown Completed [facility] HIB 4 Dose Schedule Unknown Completed Unive rsity [facility] HIB 4 Dose Schedule Unknown Com[facility] Dose Schedule Unknown Com[facility]IB 4 Dose Schedule Unknown Com[facility] HEPATITIS A Unknown Completed [facility] HEPATITIS A Unknown Completed [facility] Hep B, Adol or Pedi Unknown Completed Unive rsity of Dosage [facility] Hep B, Adol or Pedi Unknown Completed Unive rsity of Dosage [facility] Hep B, Adol or Pedi Unknown Completed Unive rsity of Dosage [facility] HPV Unknown Completed [facility] HPV Unknown Completed [facility] Influenza Virus Unknown Completed [facility] of Vaccine [facility] Influenza Virus Unknown Completed [facility] Vaccine [facility] Influenza Virus Unknown Completed [facility] Vaccine [facility] Influenza Virus Unknown Completed [facility] of Vaccine [facility] Influenza Virus Unknown Completed [facility] Vaccine [facility] Meningococcal Unknown Completed [facility] Polysaccharide [facility] (groups A, C, Y and Branc h W-135) conjugate vaccine (MCV4P) Meningococcal Unknown Completed [facility] Polysaccharide [facility] (groups A, C, Y and Branc h W-135) conjugate vaccine (MCV4P) MMR Unknown Completed [facility] MMR Unknown Completed [facility] Polio (IPV/OPV) Unknown Completed [facility]it [facility] of [facility] Polio (IPV/OPV) Unknown Completed [facility] y of [facility] Polio (IPV/OPV) Unknown Completed [facility] of [facility] Polio (IPV/OPV) Unknown Completed [facility] y [facility] TDAP Unknown Completed [facility] Varicella Unknown Completed [facility] (varivax[facility]chicken [place] [facility] pox) Branch Varicella Unknown Completed [facility] (varivax)(ch[facility] [place] [facility] pox) Branch Rho (d) Immune Unknown Completed [facility] Globulin [facility] DTaP, Unspecified Unknown Completed [facility] Formulation [facility] DTaP, Unspecified Unknown Completed [facility] Formulation [facility] DTaP, Unspecified Unknown Completed [facility] Formulation [facility] DTaP, Unspecified Unknown Completed [facility] Formulation [facility] DTaP, Unspecified Unknown Completed [facility] Formulation [facility] Flu Trivalent Unknown Completed [facility] Influenza Virus Unknown Completed [facility]it y of Vaccine - Whole [facility] ical Branch Influenza Virus Unknown Completed [facility] y of Vaccine Nasal [facility] Influenza Virus Unknown Completed [facility] Vaccine [facility] HPV9 Unknown Completed [facility] IPV Unknown Completed [facility] IPV Unknown Completed [facility] IPV Unknown Completed [facility] IPV Unknown Completed [facility] Influenza Virus Unknown Completed Universit y of Vaccine Quad .5 mL [facility] IM 6+ [place] Branch (FLUZONE/FLULAVAL/FL UARIX) Rho (d) Immune Unknown Completed [facility] DTAP Unknown Completed [facility] DTAP Unknown Completed [facility] DTAP Unknown Completed [facility] DTAP Unknown Completed [facility] DTAP Unknown Completed [facility] HIB 4 Dose Schedule Unknown Completed Unive rsity [facility] HIB 4 Dose Schedule Unknown Completed [facility] HIB 4 Dose Schedule Unknown Completed [facility] HIB 4 Dose Schedule Unknown Completed Unive rsity [facility] HEPATITIS A Unknown Completed [facility] HEPATITIS A Unknown Completed [facility] Hep B, Adol or Pedi Unknown Completed Unive rsity of Dosage [facility] Hep B, Adol or Pedi Unknown Completed Unive rsity of Dosage [facility] Hep B, Adol or Pedi Unknown Completed Unive rsity of Dosage [facility] HPV Unknown Completed [facility] HPV Unknown Completed [facility] Influenza Virus Unknown Completed [facility] Vaccine [facility] Influenza Virus Unknown Completed [facility] Vaccine [facility] Influenza Virus Unknown Completed [facility] Vaccine [facility] Influenza Virus Unknown Completed [facility] Vaccine [facility] Influenza Virus Unknown Completed [facility] Vaccine [facility] Meningococcal Unknown Completed [facility] Polysaccharide [facility] (groups A, C, Y and Branc h W-135) conjugate vaccine (MCV4P) Meningococcal Unknown Completed [facility] Polysaccharide [facility] (groups A, C, Y and Branc h W-135) conjugate vaccine (MCV4P) MMR Unknown Completed [facility] MMR Unknown Completed [facility] Polio (IPV/OPV) Unknown Completed Universit [facility] Polio (IPV/OPV) Unknown Completed [facility]it [facility] Polio (IPV/OPV) Unknown Completed [facility]it [facility] Polio (IPV/OPV) [facility] TDAP Unknown Completed [facility] Varicella Unknown Completed University (varivax)(chicken [place] [facility] pox) Branch Varicella Unknown Completed [facility] (varivax)(chicken [place] [facility] pox) Branch DTaP, Unspecified Unknown Completed [facility] Formulation [facility] DTaP, Unspecified Unknown Completed [facility] Formulation [facility] DTaP, Unspecified Unknown Completed [facility] Formulation [facility] DTaP, Unspecified Unknown Completed [facility] Formulation [facility] DTaP, Unspecified Unknown Completed [facility] Formulation [facility] Flu Trivalent Unknown Completed [facility] Influenza Virus Unknown Completed [facility] [place] [facility] [place] Influenza Virus Unknown Completed [facility] [place] [facility] Influenza Virus Unknown Completed [facility] [place] [facility] HPV9 Unknown Completed [facility] IPV Unknown Completed [facility] IPV Unknown Completed [facility] IPV Unknown Completed [facility] IPV Unknown Completed [facility] Influenza Virus Unknown Completed [facility]it y of Vaccine Quad .5 mL [facility] IM 6+ [place] Branch (FLUZONE/FLULAVAL/FL UARIX) Rho (d) Immune Unknown Completed [facility] DTAP Unknown Completed [facility] DTAP Unknown Completed [facility] DTAP Unknown Completed [facility] DTAP Unknown Completed [facility] DTAP Unknown Completed [facility] HIB 4 Dose Schedule Unknown Completed [facility] HIB 4 Dose Schedule Unknown Completed [facility] HIB 4 Dose Schedule Unknown Completed [facility] HIB 4 Dose Schedule Unknown Completed [facility] HEPATITIS A Unknown Completed [facility] HEPATITIS A Unknown Completed [facility] Hep B, Adol or Pedi Unknown Completed Unive rsity of Dosage [facility] Hep B, Adol or Pedi Unknown Completed Unive rsity of Dosage [facility] Hep B, Adol or Pedi Unknown Completed Unive rsity [facility] HPV Unknown Completed [facility] HPV Unknown Completed [facility] Influenza Virus Unknown Completed [facility] y of Vaccine [facility] Influenza Virus Unknown Completed Universit y [facility] Influenza Virus Unknown Completed [facility]it y Vaccine [facility] Influenza Virus Unknown Completed [facility] y [facility] Influenza Virus Unknown Completed [facility] y Vaccine [facility] Meningococcal Unknown Completed [facility] (groups A, C, Y and Branc h W-135) conjugate vaccine (MCV4P) Meningococcal Unknown Completed [facility] (groups A, C, Y and Branc h W-135) conjugate vaccine (MCV4P) MMR Unknown Completed [facility] MMR Unknown Completed [facility] Polio (IPV/OPV) Unknown Completed [facility] Polio (IPV/OPV) Unknown Completed [facility] Polio (IPV/OPV) Unknown Completed [facility] Polio (IPV/OPV) Unknown Completed [facility] TDAP Unknown Completed [facility] Varicella Unknown Completed [facility] of (varivax[place] [place] [facility] pox) Branch Varicella Unknown Completed [facility] (varivax)(chicken [place] [facility] pox) Branch DTaP, Unspecified Unknown Completed [facility] Formulation [facility] DTaP, Unspecified Unknown Completed [facility] Formulation [facility] DTaP, Unspecified Unknown Completed [facility] Formulation [facility] DTaP, Unspecified Unknown Completed [facility] Formulation [facility] DTaP, Unspecified Unknown Completed [facility] Formulation [facility] Flu Trivalent Unknown Completed [facility] Influenza Virus Unknown Completed [facility] Vaccine [facility] [place] [facility] Influenza Virus Unknown Completed [facility] [place] [facility] Influenza [facility] Unknown Completed [facility] y of Vaccine Nas[facility] [place] HPV9 Unknown Completed [facility] IPV Unknown Completed [facility] IPV Unknown Completed [facility] IPV Unknown Completed [facility] IPV Unknown Completed [facility] Influenza Virus Unknown Completed [facility]it y of Vaccine Quad .5 mL [facility] IM 6+ [place] Branch (FLUZONE/FLULAVAL/FL UARIX) Rho (d) Immune Unknown Completed [facility] Globulin [facility] DTAP Unknown Completed [facility] DTAP Unknown Completed [facility] DTAP Unknown Completed [facility] DTAP Unknown Completed [facility] DTAP Unknown Completed [facility] HIB 4 Dose Schedule Unknown Completed [facility] HIB 4 Dose Schedule Unknown Completed [facility] HIB 4 Dose Schedule Unknown Completed [facility] HIB 4 Dose Schedule Unknown Completed [facility] HEPATITIS A Unknown Completed [facility] HEPATITIS A Unknown Completed [facility] Hep B, Adol or Pedi Unknown Completed Unive rsity of Dosage [facility] Hep B, Adol or Pedi Unknown Completed Unive rsity of Dosage [facility] Hep B, Adol or Pedi Unknown Completed Unive rsity [facility] HPV Unknown Completed [facility] HPV Unknown Completed [facility] Influenza Virus Unknown Completed [facility] y of Vaccine [facility] Influenza Virus Unknown Completed [facility] y of Vaccine [facility] Influenza Virus Unknown Completed [facility] of Vaccine [facility] Influenza Virus Unknown Completed [facility] Vaccine [facility] Influenza Virus Unknown Completed [facility] of Vaccine [facility] Meningococcal Unknown Completed [facility] Polysaccharide [facility] (groups A, C, Y and Branc h W-135) conjugate vaccine (MCV4P) Meningococcal Unknown Completed [facility] Polysaccharide [facility] (groups A, C, Y and Branc h W-135) conjugate vaccine (MCV4P) MMR Unknown Completed [facility] MMR Unknown Completed [facility] Polio (IPV/OPV) Unknown Completed Universit y [facility] Polio (IPV/OPV) Unknown Completed Univers[facility] y [facility] Polio (IPV/OPV) Unknown Completed [facility] y [facility] Polio (IPV/OPV) Unknown Completed [facility] y [facility] TDAP Unknown Completed [facility] Varicella Unknown Completed [facility] (varivax)(chicken [place] [facility] pox) Branch Varicella Unknown Completed [facility] (varivax)(chicken [place] [facility] pox) Branch DTaP, Unspecified Unknown Completed [facility] Formulation [facility] DTaP, Unspecified Unknown Completed [facility] Formulation [facility] DTaP, Unspecified Unknown Completed [facility] Formulation [facility] DTaP, Unspecified Unknown Completed [facility] Formulation [facility] DTaP, Unspecified Unknown Completed [facility] Formulation [facility] Flu Trivalent Unknown Completed [facility] Influenza Virus Unknown Completed [facility] Vaccine - [facility] [place] [facility] Influenza Virus Unknown Completed [facility] [place] [facility] Influenza Virus Unknown Completed [facility] y of Vaccine Nas[facility] [place] HPV9 Unknown Completed [facility] IPV Unknown Completed [facility] IPV Unknown Completed [facility] IPV Unknown Completed [facility] IPV Unknown Completed [facility] Influenza Virus Unknown Completed Universit y of Vaccine Quad .5 mL [facility] 6+ MO Branch (FLUZONE/FLULAVAL/FL UARIX) Rho (d) Immune Unknown Completed [facility] DTAP Unknown Completed [facility] DTAP Unknown Completed [facility] DTAP Unknown Completed [facility] DTAP Unknown Completed [facility] DTAP Unknown Completed [facility] HIB 4 Dose Schedule Unknown Completed [facility] HIB 4 Dose Schedule Unknown Completed [facility] HIB 4 Dose Schedule Unknown Completed [facility] HIB 4 Dose Schedule Unknown Completed [facility] HEPATITIS A Unknown Completed [facility] HEPATITIS A Unknown Completed [facility] Hep B, Adol or Pedi Unknown Completed Unive rsity of Dosage [facility] Hep B, Adol or Pedi Unknown Completed Unive rsity of Dosage [facility] Hep B, Adol or Pedi Unknown Completed Unive rsity of Dosage [facility] HPV Unknown Completed [facility] HPV Unknown Completed [facility] Influenza Virus Unknown Completed [facility] y of Vaccine [facility] Influenza Virus Unknown Completed [facility] of Vaccine [facility] Influenza Virus Unknown Completed [facility] of Vaccine [facility] Influenza Virus Unknown Completed [facility] of Vaccine [facility] Influenza Virus Unknown Completed [facility] Vaccine [facility] Meningococcal Unknown Completed [facility] Polysaccharide [place] [facility] (groups A, C, Y and Branc h W-135) conjugate vaccine (MCV4P) Meningococcal Unknown Completed [facility] Polysaccharide [place] [facility] (groups A, C, Y and Branc h W-135) conjugate vaccine (MCV4P) MMR Unknown Completed [facility] MMR Unknown Completed [facility] Polio (IPV/OPV) Unknown Completed Universit y [facility] Polio (IPV/OPV) Unknown Completed [facility] y [facility] Polio (IPV/OPV) Unknown Completed Universit [facility] Polio (IPV/OPV) Unknown Completed Universit [facility] TDAP Unknown Completed [facility] Varicella Unknown Completed [facility] (varivax)(chicken [place] [facility] pox) Branch Varicella Unknown Completed [facility] (varivax)(chicken [place] [facility] pox) Trimble Rho (d) Immune Unknown Completed [facility] TDAP Unknown Completed [facility] Rho (d) Immune Unknown Completed [facility] Rho (d) Immune Unknown Completed [facility] DTaP, Unspecified Unknown Completed [facility] Formulation [facility] DTaP, Unspecified Unknown Completed [facility] Formulation [facility] DTaP, Unspecified Unknown Completed [facility] Formulation [facility] DTaP, Unspecified Unknown Completed [facility] Formulation [facility] DTaP, Unspecified Unknown Completed [facility] Formulation [facility] Flu Trivalent Unknown Completed [facility] Influenza Virus Unknown Completed [facility] Vaccine - [facility] [place] [facility] Influenza Virus Unknown Completed [facility] [place] [facility] Influenza Virus Unknown Completed [facility] y of Vaccine Nas[facility] [place] HPV9 Unknown Completed [facility] IPV Unknown Completed [facility] IPV Unknown Completed [facility] IPV Unknown Completed [facility] IPV Unknown Completed [facility] Influenza Virus Unknown Completed Universit y of Vaccine Quad .5 mL [facility] 6+ MO Branch (FLUZONE/FLULAVAL/FL UARIX) Rho (d) Immune Unknown Completed [facility] DTAP Unknown Completed [facility] DTAP Unknown Completed [facility] DTAP Unknown Completed [facility] DTAP Unknown Completed [facility] DTAP Unknown Completed [facility] HIB 4 Dose Schedule Unknown Completed [facility] HIB 4 Dose Schedule Unknown Completed [facility] HIB 4 Dose Schedule Unknown Completed Unive [facility] HIB 4 Dose Schedule Unknown Completed Unive [facility] HEPATITIS A Unknown Completed [facility] HEPATITIS A Unknown Completed [facility] Hep B, Adol or Pedi Unknown Completed Unive rsity of Dosage [facility] Hep B, Adol or Pedi Unknown Completed Unive [facility] Hep B, Adol or Pedi Unknown [facility] HPV Unknown Completed [facility] Influenza Virus Unknown Completed Universit y [facility] Influenza Virus Unknown Completed [facility] Influenza Virus Unknown [facility] Influenza Virus Unknown Completed Universit y Vaccine [facility] Influenza Virus Unknown Completed [facility] Meningococcal Unknown Completed [facility] (groups A, C, Y and Branc h W-135) conjugate vaccine (MCV4P) Meningococcal Unknown Completed [facility] (groups A, C, Y and Branc h W-135) conjugate vaccine (MCV4P) MMR Unknown Completed [facility] MMR Unknown Completed [facility] Polio (IPV/OPV) Unknown Completed [facility] Polio (IPV/OPV) Unknown Completed [facility] Polio (IPV/OPV) Unknown Completed [facility] Polio (IPV/OPV) Unknown Completed [facility] TDAP Unknown Completed [facility] Varicella Unknown Completed [facility] (varivax)(chicken [place] [facility] pox) Branch Varicella Unknown Completed [facility] (varivax)(chicken [place] [facility] pox) Branch Rho (d) Immune Unknown Completed [facility] TDAP Unknown Completed [facility] Rho (d) Immune Unknown Completed [facility] Rho (d) Immune Unknown Completed [facility] DTaP, Unspecified Unknown Completed [facility] Formulation [facility] DTaP, Unspecified Unknown Completed [facility] of Formulation [facility] DTaP, Unspecified Unknown Completed [facility] of Formulation [facility] DTaP, Unspecified Unknown Completed [facility] of Formulation [facility] DTaP, Unspecified Unknown Completed [facility] Formulation [facility] Flu Trivalent Unknown Completed [facility] Influenza Virus Unknown Completed [facility] y of Vaccine - [facility] [place] [facility] [place] Influenza Virus Unknown Completed [facility] [place] [facility] Influenza Virus Unknown Completed [facility] y of Vaccine Nasal [facility] [place] HPV9 Unknown Completed [facility] IPV Unknown Completed [facility] IPV Unknown Completed [facility] IPV Unknown Completed [facility] IPV Unknown Completed [facility] Influenza Virus Unknown Completed Universit y of Vaccine Quad .5 mL [facility] 6+ MO Branch (FLUZONE/FLULAVAL/FL UARIX) Rho (d) Immune Unknown Completed [facility] DTAP Unknown Completed [facility] DTAP Unknown Completed [facility] DTAP Unknown Completed [facility] DTAP Unknown Completed [facility] DTAP Unknown Completed [facility] HIB 4 Dose Schedule Unknown Completed Unive [facility] HIB 4 Dose Schedule Unknown Completed Unive [facility] HIB 4 Dose Schedule Unknown Completed [facility] HIB 4 Dose Schedule Unknown Com[facility] HEPATITIS A Unknown Completed [facility] HEPATITIS A Unknown Completed [facility] Hep B, Adol or Pedi Unknown Completed Unive rsity of [facility] Hep B, Adol or Pedi Unknown Completed Unive rsity of [facility] Hep B, Adol or Pedi Unknown Completed Unive rsity [facility] HPV Unknown Completed [facility] HPV Unknown Completed [facility] Influenza Virus Unknown Completed Universit y of Vaccine [facility] Influenza Virus Unknown Completed Universit y of Vaccine [facility] Influenza Virus Unknown Completed Universit y of Vaccine [facility] Influenza Virus Unknown Completed Universit y of Vaccine [facility] Influenza Virus Unknown Completed Universit y of Vaccine [facility] Meningococcal Unknown Completed [facility] (groups A, C, Y and Branc h W-135) conjugate vaccine (MCV4P) Meningococcal Unknown Completed [facility] Polysaccharide [facility] anna (groups A, C, Y and Branc h W-135) conjugate vaccine (MCV4P) MMR Unknown Completed [facility] MMR Unknown Completed [facility] Polio (IPV/OPV) Unknown Completed Universit y [facility] Polio (IPV/OPV) [facility] Polio (IPV/OPV) Unknown Completed Universit [facility] Polio (IPV/OPV) Unknown Completed Universit [facility] TDAP Unknown Completed [facility] Varicella Unknown Completed [facility] (varivax)(chicken [place] [facility] pox) Branch Varicella Unknown Completed [facility] (varivax)(chicken [place] [facility] pox) [place] Rho (d) Immune Unknown Completed [facility] TDAP Unknown Completed [facility] Rho (d) Immune Unknown Completed [facility] Rho (d) Immune Unknown Completed [facility] DTaP, Unspecified Unknown Completed Univers ity of Formulation [facility] DTaP, Unspecified Unknown Completed Univers ity of Formulation [facility] DTaP, Unspecified Unknown Completed Univers ity of Formulation [facility] DTaP, Unspecified Unknown Completed Univers ity of Formulation [facility] DTaP, Unspecified Unknown Completed Univers ity of Formulation [facility] Flu Trivalent Unknown Completed [facility] Influenza Virus Unknown Completed Universit y of Vaccine - Whole [facility] ical Branch Influenza Virus Unknown Completed Universit y of Vaccine [facility] [place] [facility] [place] Influenza Virus Unknown Completed Universit y of Vaccine Nasal [facility] HPV9 Unknown Completed [facility] IPV Unknown Completed [facility] IPV Unknown Completed [facility] IPV Unknown Completed [facility] IPV Unknown Completed [facility] Influenza Virus Unknown Completed Universit y of Vaccine Quad .5 mL [facility] IM 6+ MO Branch (FLUZONE/FLULAVAL/FL UARIX) Rho (d) Immune Unknown Completed [facility] DTAP Unknown Completed [facility] DTAP Unknown Completed [facility] DTAP Unknown Completed [facility] DTAP Unknown Completed [facility] DTAP Unknown Completed [facility] HIB 4 Dose Schedule Unknown Completed [facility] 4 Dose Schedule Unknown Completed [facility] HIB 4 Dose Schedule Unknown Completed [facility] HIB 4 Dose Schedule Unknown Completed [facility] HEPATITIS A Unknown Completed [facility] HEPATITIS A Unknown Completed [facility] Hep B, Adol or Pedi Unknown Completed Unive rsity of [facility] Hep B, Adol or Pedi Unknown Completed Unive rsity [facility] Hep B, Adol or Pedi Unknown Completed Unive rsity [facility] HPV Unknown Completed [facility] HPV Unknown Completed [facility] Influenza Virus Unknown Completed Universit y Vaccine [facility] Influenza Virus Unknown Completed Universit y [facility] Influenza Virus Unknown Completed Universit y [facility] Influenza Virus Unknown Completed Universit y [facility] Influenza Virus Unknown Completed Universit y [facility] Meningococcal Unknown Completed [facility] (groups A, C, Y and Branc h W-135) conjugate vaccine (MCV4P) Meningococcal Unknown Completed [facility] (groups A, C, Y and Branc h W-135) conjugate vaccine (MCV4P) MMR Unknown Completed [facility] MMR Unknown Completed [facility] Polio (IPV/OPV) Unknown Completed [facility] Polio (IPV/OPV) Unknown Completed [facility] Polio (IPV/OPV) Unknown Completed [facility] Polio (IPV/OPV) Unknown Completed [facility] TDAP Unknown Completed [facility] Varicella Unknown Completed [facility] (varivax)(chicken [place] [facility] pox) Branch Varicella Unknown Completed [facility] (varivax)(chicken [place] [facility] pox) Branch Rho (d) Immune Unknown Completed [facility] TDAP Unknown Completed [facility] Rho (d) Immune Unknown Completed [facility] Rho (d) Immune Unknown Completed [facility] DTaP, Unspecified Unknown Completed Univers ity of Formulation [facility] DTaP, Unspecified Unknown Completed Univers ity of Formulation [facility] DTaP, Unspecified Unknown Completed Univers ity of Formulation [facility] DTaP, Unspecified Unknown Completed Univers ity of Formulation [facility] DTaP, Unspecified Unknown Completed Univers ity of Formulation [facility] Flu Trivalent Unknown Completed [facility] Influenza Virus Unknown Completed Universit y of Vaccine - Whole [facility] ical [place] Influenza Virus Unknown Completed [facility] y of [facility] [place] [facility] [place] Influenza Virus Unknown Completed Universit y of Vaccine Nasal [facility] HPV9 Unknown Completed [facility] IPV Unknown Completed [facility] IPV Unknown Completed [facility] IPV Unknown Completed [facility] IPV Unknown Completed [facility] Vital Signs Vital Name Observation Time Observation Value Comments Source Systolic blood 2023-04-16 16:15:00 116 mm[Hg] Univer sity of pressure [facility] Diastolic blood 2023-04-16 16:15:00 70 mm[Hg] Unive rsity of [facility] Heart rate 2023-04-16 16:15:00 75 /min Universi ty of [facility] Body temperature 2023-04-16 16:15:00 36.56 Zoya [facility] Respiratory rate 2023-04-16 16:15:00 16 /min Univ ersity [facility] Body height 2023-04-16 16:15:00 157.5 cm Universi ty of [facility] Body weight 2023-04-16 16:15:00 61.689 kg Universi ty of [facility] BMI 2023-04-16 16:15:00 24.87 kg/m2 Universi ty [facility] Systolic blood 2023-03-19 13:19:00 122 mm[Hg] Univer sity of pressure [facility] Diastolic blood 2023-03-19 13:19:00 76 mm[Hg] Unive rsity of pressure [facility] Heart rate 2023-03-19 13:19:00 76 /min Universi ty of [facility] Body temperature 2023-03-19 13:19:00 36.72 Zoya [facility] Respiratory rate 2023-03-19 13:19:00 16 /min Univ ersity [facility] Body height 2023-03-19 13:19:00 157.5 cm Universi ty of [facility] Body weight 2023-03-19 13:19:00 61.553 kg Universi ty of [facility] BMI 2023-03-19 13:19:00 24.82 kg/m2 Universi ty [facility] Systolic blood 2023-03-05 19:10:00 124 mm[Hg] Univer sity of pressure [facility] Diastolic blood 2023-03-05 19:10:00 76 mm[Hg] Unive rsity of pressure [facility] Heart rate 2023-03-05 19:10:00 61 /min Universi ty [facility] Body temperature 2023-03-05 19:10:00 36.5 Zoya Univ ersity [facility] Respiratory rate 2023-03-05 19:10:00 16 /min Univ ersity [facility] Body height 2023-03-05 19:10:00 157.5 cm [facility] ty [facility] Body weight 2023-03-05 19:10:00 63.504 kg [facility] BMI 2023-03-05 19:10:00 25.61 kg/m2 [facility] Systolic blood 2022-10-05 20:25:00 113 mm[Hg] Univer sity of [facility] Diastolic blood 2022-10-05 20:25:00 70 mm[Hg] Unive rsity of [facility] Heart rate 2022-10-05 20:25:00 78 /min [facility] Body temperature 2022-10-05 20:25:00 36.61 Zoya Univ ersity [facility] Respiratory rate 2022-10-05 20:25:00 16 /min Univ ersity [facility] Body height 2022-10-05 20:25:00 157.5 cm [facility] Body weight 2022-10-05 20:25:00 64.365 kg [facility] BMI 2022-10-05 20:25:00 25.95 kg/m2 [facility] Body height 2022-02-04 20:55:00 157.5 cm [facility] Body weight 2022-02-04 20:55:00 63.141 kg [facility] BMI 2022-02-04 20:55:00 25.46 kg/m2 [facility] Systolic blood 2022-01-15 19:57:00 118 mm[Hg] Univer sity of pressure [facility] Diastolic blood 2022-01-15 19:57:00 71 mm[Hg] Unive rsity of [facility] Heart rate 2022-01-15 19:57:00 67 /min [facility] Body temperature 2022-01-15 19:57:00 36.83 Zoya [facility] Respiratory rate 2022-01-15 19:57:00 18 /min [facility] Body height 2022-01-15 19:57:00 157.5 cm [facility] Body weight 2022-01-15 19:57:00 64.139 kg [facility] BMI 2022-01-15 19:57:00 25.86 kg/m2 [facility] Procedures Procedure Date / Time Performing Clinician Source Performed SCANNED LAB RESULTS 2023-04-20 05:01:00 [facility]O 2023-04-16 00:00:00 Morgan-Quiros, Randall Un iversity [facility] OB TRANSVAGINAL 2023-03-19 13:39:42 Morgan-Quiros, Randall [facility] PO[facility]INALYSIS W/O 2023-03-19 00:00:00 Morgan[facility]Quiros, [facility]IGN[facility] OF BENEFITS 2023-03-09 22:19:06 Doctor Unassigned, No [facility] OB TRANSVAGINAL 2023-03-05 19:27:52 Morgan-Quiros, Randall [facility] PO[facility] TEST 2023-03-05 00:00:00 Morgan-Quiros, Randall [facility] POCT URINALYSIS W/O 2023-03-05 00:00:00 Morgan-Quiros, Randall Un iversity [facility] ASSIGNMENT OF BENEFITS 2022-10-05 20:14:27 Doctor Unassigned, No [facility] POCT TEST 2022-02-04 20:56:00 Gumaro Vieyra [facility] POCT TEST 2022-01-28 19:56:00 Gumaro Vieyra [facility] POCT TEST 2022-01-15 19:57:00 Gumaro Vieyra [facility] 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 CL[facility] 2021-12-29 05:01:00 Doctor Unassmelanie, Madelin [facility]z [facility] ULTRASOUND Name [facility] Encounters Start End Encounter Admission Attending Care Care Encounter Source Date/Time Date/Time Type Type Clinicians Facility Department ID 2023-10-07 2023-10-07 Outpatient R CHIO AVILESSOL [facility] [id number] Univers 09:30:00 09:30:00 RAHATQUIROSCHIO ANDERSSOL itpablo [facility] 2023-10-06 2023-10-06 Outpatient R LISANDRA LOPEZLA [facility] [id number] Univers 15:00:00 15:00:00 SARIK[facility]Z [facility] 2023-05-14 2023-05-14 Outpatient R CHIO AVILESSOL [facility] [id number] Univers 08:15:00 08:15:00 CHIO AVILESSOL ity [facility] 2023-05-14 2023-05-14 Outpatient R CHIO AVILESSOL [facility] [id number] Univers 08:15:00 08:15:00 CHIO AVILESSOL ity [facility] 2023-04-26 2023-04-26 Telephone Morgan-Amie [facility] 1.2.840.11 [id number] Univers 00:00:00 00:00:00 yvonne Randallkenisha JOHNSON 350.1.13.10 it[place] [id number] [address] 2023-04-20 2023-04-20 Orders Doctor VILLALOBOS 1.2.840.114 [id number] Univers 00:00:00 00:00:00 Only Unassigned, NATHALIE 350.1.13.10 ity of [place] [facility] 4.2.7.2.686 Román as [id number] [facility] 009 Branch 2023-04-16 2023-04-16 Outpatient R RANDALL AVILES [facility] [id number] Univers 11:30:00 11:40:03 RANDALL AVILES [facility] 2023-04-16 2023-04-16 [facility] 1.2.840.114 [id number] Univers 11:30:00 11:40:03 sRandall 350.1.13.10 ity of [place] [id number] [address] 2023-03-19 2023-03-19 [facility] [id number] Univers 08:15:00 08:44:58 RANDALL AVILES [facility] 2023-03-19 2023-03-19 [facility]ine [facility] 1.2.840.114 [id number] Univers 08:15:00 08:44:58 s, Randall JOHNSON 350.1.13.10 it[place] [id number] [address] 2023-03-12 2023-03-12 Outpatient R MORGANRANDALL ORTIZ [facility] [id number] Univers 09:45:00 09:45:00 RANDALL AVILES [facility] 2023-03-09 2023-03-09 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686 Román as [id number] [place] [address] Branch 2023-03-05 2023-03-05 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 Davonte, Adc Lab Main [facility] 1.2.8 40.114 [id number] Univers 15:30:00 15:45:00 Visit Randall [facility]iles [facility] 350.1.1 3.10 [place] [id number] [place] dic[address] 2023-03-05 2023-03-05 Outpatient R RANDALL AVILES [facility] [id number] Univers 15:30:00 15:30:00 JACQUES AVILESL ity of [facility] 2023-03-05 2023-03-05 Initial Khang [facility] 1.2.840.114 [id number] Univers 14:00:00 14:29:58 sRandall 350.1.13.10 ity of [place] [id number] [address] 2022-10-05 2022-10-05 Outpatient R SARIKA LOPEZ [facility] B [id number] Univers 15:30:00 15:40:38 SARIKA LOPEZ ity [facility] 2022-10-05 2022-10-05 Office Jessica [facility] 1.2.840.114 [id number] Univers 15:30:00 15:40:38 Visit Lisandrala RAKAN 350.1.13.10 it y [place] [id number] [address] 2022-10-05 2022-10-05 Orders Doctor GRISELDA 1.2.840.114 [id number] Univers 00:00:00 00:00:00 Only Unassigned, NATHALIE 350.1.13.10 ity of [place] [facility] 4.2.7.2.686 Román as [id number] [place] [address] Branch 2022-09-11 2022-09-11 Outpatient R SARIKA LOPEZ [facility] B [id number] Univers 10:30:00 10:30:00 JESSICALISANDRALA pablo [facility] 2022-09-02 2022-09-02 Outpatient R SARIKA LOPEZ [facility] [id number] Univers 16:00:00 16:00:00 JENYSARIKA ALFARO pablo [facility] 2022-09-01 2022-09-01 [facility]phone [facility] 1.2.840.11 [id number] Univers 00:00:00 00:00:00 Sarika JOHNSON 350.1.13.10 it y of PEDIATRIC 4.2.7.2.686 [facility] [id number] [address] 2022-02-04 2022-02-04 Outpatient R GUMARO VIEYRA [facility] [id number] Univers 15:00:00 15:32:05 ity of [facility] 2022-02-04 2022-02-04 Nurse Nurse, Harish [facility] 1.2.840.114 [id number] Univers 15:00:00 15:32:05 Visit Gumaro Vieyra 350.1.13.10 ity of [facility] 4.2.7.2.686 [facility] [id number] [address] 2022-01-28 2022-01-28 Nurse Nurse, Harish [facility] 1.2.840.114 [id number] Univers 14:45:00 15:02:57 Visit Gumaro Vieyra 350.1.13.10 ity of WOMEN'S 4.2.7.2.686 [facility] [id number] [address] 2022-01-28 2022-01-28 Outpatient R GUMARO VIEYRA [facility] [id number] Univers 14:45:00 14:45:00 ity [facility] 2022-01-15 2022-01-15 Outpatient R GUMARO VIEYRA [facility] [id number] Univers 14:30:00 15:14:14 ity of [facility] 2022-01-15 2022-01-15 Routine Gumaro Vieyra MNRADHA SACNHEZ 1.2.840.114 [id number] Univers 14:30:00 15:14:14 RAKAN 350.1.13.10 i ty [place] [id number] [address] 2022-01-09 2022-01-09 Outpatient R PO CHENG [facility] [id number] Univers 13:00:00 13:24:09 ity [facility] 2022-01-09 2022-01-09 Routine Alex Po [facility] 1.2.840.114 [id number] Univers 13:00:00 13:24:09 Clark JOHNSON 350.1.13.10 i ty of [place] [id number] [address] 2022-01-09 2022-01-09 Letter Po Cheng [facility] 1.2.840.114 [id number] Univers 00:00:00 00:00:00 (Out) Clark JOHNSON 350.1.13.10 it y [place] [id number] [address] 2022-01-07 2022-01-07 Telephone Po Cheng [facility] 1.2.840.114 [id number] Univers 00:00:00 00:00:00 Clark HARRIS 350.1.13.10 i ty of [place] [id number] [place] dical [address] 2022-01-07 2022-01-07 Patient Po Cheng [facility] 1.2.122.782 [id number] Univers 00:00:00 00:00:00 Secure Msg Clark HARRIS 350.1.13.10 ity [place] [id number] [place] dical NAL [address] [place] [address] 2021-12-30 2021-12-30 Case Po Cheng [facility] 1.2.339.441 [id number] Univers 00:00:00 00:00:00 Management Cam KIMBERLY 350.1.13.10 ity [place] [id number] [place] dic[address] 2021-12-29 2021-12-29 Outpatient R PO CHENG [facility] [id number] Univers 14:00:00 15:30:34 ity of [facility] 2021-12-29 2021-12-29 Initial Po Cheng [facility] 1.2.345.357 [id number] Univers 14:00:00 15:30:34 Cam KIMBERLY 350.1.13.10 ity of [place] [id number] [address] 2021-12-29 2021-12-29 Letter Po Cheng [facility] 1.2.747.622 [id number] Univers 00:00:00 00:00:00 (Out) Cam KIMBERLY 350.1.13.10 i ty [place] [id number] [place] dic[address] 2021-12-29 2021-12-29 Orders Doctor GRISELDA 1.2.840.114 [id number] Univers 00:00:00 00:00:00 Only Unassigned, NATHALIE 350.1.13.10 ity of [place] [facility] 4.2.7.2.686 Román as [id number] [address] 2021-09-29 2021-09-29 Outpatient R JARRELL GUMARO [facility] [id number] Univers 13:00:00 13:48:03 ity of [facility] 2021-09-29 2021-09-29 Routine Jarrell Gumaro [facility] SANCHEZ 1.2.840.114 [id number] Univers 13:00:00 13:48:03 RAKAN 350.1.13.10 i ty [place] [id number] [address] 2021-09-29 2021-09-29 Outpatient R GUAMRO VIEYRA [facility] [id number] Univers 13:00:00 13:48:03 ity [facility] 2021-09-29 2021-09-29 Orders Doctor GRISELDA 1.2.840.114 [id number] Univers 00:00:00 00:00:00 Only Unassigned, NATHALIE 350.1.13.10 ity of [place] [facility] 4.2.7.2.686 Román as [id number] [address] 2021-09-25 2021-09-25 Outpatient R GUMARO VIEYRA [facility] [id number] Univers 13:45:00 13:45:00 ity [facility] 2021-08-28 2021-08-28 Outpatient R GUMARO VIEYRA [facility] [id number] Univers 16:15:00 16:39:03 ity [facility] 2021-08-28 2021-08-28 Routine Gumaro Vieyra [facility] 1.2.840.114 [id number] Univers 16:15:00 16:39:03 RAKAN 350.1.13.10 i ty [place] [id number] [address] 2021-08-20 2021-08-20 Telephone Gumaro Vieyra [facility] 1.2.840.11 [id number] Univers 00:00:00 00:00:00 RAKAN 350.1.13.10 [place] [id number] [address] 2021-08-16 2021-08-16 Outpatient X PO CHENG MNRADHA AMBROCIO [id number] Univers 14:57:00 17:30:00 ity [facility] 2021-08-16 2021-08-16 Emergency Po Cheng [facility] 1.2.840.114 [id number] Univers 14:57:00 17:30:00 Cam KIMBERLY 350.1.13.10 i ty [facility] 4.2.7.2.686 [facility] [id number] [facility] 083 Branch 2021-08-16 2021-08-16 Orders Doctor GRISELDA 1.2.840.114 [id number] Univers 00:00:00 00:00:00 Only Unassigned, NATHALIE 350.1.13.10 ity of [place] [facility] 4.2.7.2.686 [facility] [id number] [facility] 009 Branch 2021-08-11 2021-08-14 Inpatient P ROSA VIEYRAN [facility] AMBROCIO [id number] Univers 16:49:00 13:35:00 ity of [facility] 2021-08-11 2021-08-14 [facility] Rosa Vieyran [facility] 1.2.840.114 [id number] Univers 16:49:00 13:35:00 Encounter KIMBERLY 350.1.13.10 ity of [place] 4.2.7.2.6 [facility] [id number] [place] [address]63 Branch 2021-08-13 2021-08-13 [facility] 1.2.840.114 [id number] Univers 20:04:53 20:04:53 Event Vitor KIMBERLY 350.1.13.10 i ty of [place] 4.2.7.2.6 [facility] [id number] [place] 087563 Branch 2021-08-11 2021-08-11 Routine JarrellRosan [facility] 1.2.840.114 [id number] Univers 13:45:00 14:00:00 RAKAN 350.1.13.10 i ty of Visit WOMENS 4.2.7.2.686 [facility] [id number] [facility] 134 Branch 2021-08-11 2021-08-11 Outpatient R JARRELL GUMARO [facility] [id number] Univers 13:45:00 13:45:00 ity of [facility] 2021-08-11 2021-08-11 Letter Rosa Vieyran [facility] 1.2.840.114 [id number] Univers 00:00:00 00:00:00 (Out) RAKAN 350.1.13.10 it [place] [id number] [address] 2021-08-11 2021-08-11 Orders Doctor GRISELDA 1.2.840.114 [id number] Univers 00:00:00 00:00:00 Only Unassigned, NATHALIE 350.1.13.10 ity of [place] [facility] 4.2.7.2.686 Román as [id number] [address] 2021-08-04 2021-08-04 Outpatient R GUMARO VIEYRA [facility] [id number] Univers 15:15:00 15:43:34 ity of [facility] 2021-08-04 2021-08-04 Routine Gumaro Vieyra [facility] S[facility] 1.2.840.114 [id number] Univers 15:15:00 15:43:34 RAKAN 350.1.13.10 i ty [place] [id number] [address] 2021-08-01 2021-08-01 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 Davonte, Faby Lab Main RUST 1.2.8 40.114 [id number] Univers 12:15:00 12:30:00 Visit Gumaro Vieyra DEANELAINA 350.1.13.10 it[place] [phone] [place] dical [address] 2021-08-01 2021-08-01 Outpatient R GUMARO VIEYRA [facility] [id number] Univers 12:15:00 12:15:00 ity of [facility] 2021-07-29 2021-07-29 Telephone Gumaro Vieyra RUST LAURA 1.2.840.11 [id number] Univers 00:00:00 00:00:00 RAKAN 350.1.13.10 it y of PEDIATRIC 4.2.7.2.686 [facility] [phone] [address] 2021-07-28 2021-07-28 Outpatient R GUMARO VIEYRA [facility] [id number] Univers 13:00:00 13:50:17 ity of [facility] 2021-07-282021-07-28 Routine Gumaro Vieyra 1.2.840.114 [id number] Univers 13:00:00 13:50:17 RAKAN 350.1.13.10 i ty of Visit [place] [id number] [address] 2021-07-28 2021-07-28 Orders Doctor GRISELDA 1.2.840.114 [id number] Univers 00:00:00 00:00:00 Only Unassigned, NATHALIE 350.1.13.10 ity of [place] [facility] 4.2.7.2.686 Román as [phone] [place] [address] [address] 2021-07-09 2021-07-09 Outpatient R GUMARO VIEYRA [facility] [id number] Univers 16:00:00 16:42:30 ity [facility] 2021-07-09 2021-07-09 Routine Gumaro Vieyra 1.2.840.114 [id number] Univers 16:00:00 16:42:30 RAKAN 350.1.13.10 i ty of [place] [id number] [address] 2021-07-04 2021-07-04 Patient Gumaro Vieyra 1.2.840.114 [id number] Univers 00:00:00 00:00:00 Secure Msg RAKAN 350.1.13.10 it[place] [id number] [address] 2021-07-03 2021-07-03 Outpatient R GUMARO VIEYRA [facility] [id number] Univers 16:15:00 16:15:00 ity [facility] 2021-06-26 2021-06-26 Outpatient R GUMARO VIEYRA [facility] [id number] Univers 16:00:00 16:00:00 ity [facility] 2021-06-26 2021-06-26 Routine Gumaro Vieyra 1.2.840.114 [id number] Univers 10:15:00 10:30:00 RAKAN 350.1.13.10 i ty of Visit [place] [id number] [address] 2021-06-26 2021-06-26 Outpatient R GUMARO VIEYRA [facility] [id number] Univers 10:15:00 10:15:00 ity of [facility] 2021-06-26 2021-06-26 Telephone Gumaro Vieyra RUST LAURA 1.2.840.11 [id number] Univers 00:00:00 00:00:00 RAKAN 350.1.13.10 it y [place] [id number] [address] 2021-06-24 2021-06-24 Patient Doctor RUST 1.2.840.114 [id number] [facility] 00:00:00 00:00:00 Secure Msg Unassigned, KIMBERLY 350.1.13.10 ity of [place] [phone] Ks dical NAL 134 [facility] 2021-06-20 2021-06-20 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 Davonte, Adc Lab Main RUST 1.2.8 40.114 [id number] Univers 10:45:00 11:00:00 Visit Luz Mckinley 350.1.13.10 it[place] of [place] [phone] Ks dical NAL 353 [facility] 2021-06-20 2021-06-20 Outpatient Snehal MCKINLEY [facility] [id number] Univers 10:45:00 10:45:00 LUZ landaverde [facility] 2021-06-10 2021-06-10 Outpatient Snehal MCKINLEY [facility] [id number] Univers 15:00:00 15:34:21 LUZ landaverde [facility] 2021-06-10 2021-06-10 Routine Elías RUST SANCHEZ 1.2.840.114 [id number] Univers 14:58:28 15:34:21 Luz JOHNSON 350.1.13.10 i ty of Visit [place] [id number] [address] 2021-06-10 2021-06-10 Outpatient R ELÍAS [facility] [id number] Univers 15:00:00 15:00:00 LUZ ity [facility] 2021-05-27 2021-05-27 Routine Gumaro Vieyra [facility] 1.2.840.114 [id number] Univers 16:02:57 17:03:41 RAKAN 350.1.13.10 i ty of [place] [id number] [address] 2021-05-27 2021-05-27 Outpatient R GUMARO VIEYRA [facility] [id number] Univers 16:00:00 17:03:41 ity [facility] 2021-05-21 2021-05-21 Telephone Gumaro Vieyra RUST SANCHEZ 1.2.840.11 [id number] Univers 00:00:00 00:00:00 RAKAN 350.1.13.10 it [place] [facility] [id number] [address] 2021-05-14 2021-05-14 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 Davonte, Faby Lab Main RUST 1.2.8 40.114 [id number] Univers 08:17:15 08:32:15 Visit Gumaro Vieyra 350.1.13.10 ity [facility] 4[place]2.[place] [id number] [place] dical [address] 2021-05-14 2021-05-14 Outpatient R GUMARO VIEYRA [facility] [id number] Univers 08:15:00 08:15:00 ity [facility] 2021-05-14 2021-05-14 Case Gumaro Vieyra RUST SANCHEZ 1.2.840.114 [id number] Univers 00:00:00 00:00:00 Management RAKAN 350.1.13.10 [place] [id number] [address] 2021-05-14 2021-05-14 Orders Doctor GRISELDA 1.2.840.114 [id number] Univers 00:00:00 00:00:00 Only Unassigned, NATHALIE 350.1.13.10 ity of [place] [facility] 4.2.7.2.686 Román as [phone] [address] 2021-05-09 2021-05-09 Patient Gumaro Vieyra 1.2.840.114 [id number] Univers 00:00:00 00:00:00 Secure Msg RAKAN 350.1.13.10 it[place] [id number] [address] 2021-05-08 2021-05-08 Routine Gumaro Vieyra 1.2.840.114 [id number] Univers 15:18:18 16:53:02 RAKAN 350.1.13.10 i ty of Visit [place] [id number] [address] 2021-05-08 2021-05-08 Outpatient R GUMARO VIEYRA [facility] [id number] Univers 15:15:00 16:53:02 ity of [facility] 2021-05-08 2021-05-08 Refill Gumaro Vieyra 1.2.840.114 [id number] Univers 00:00:00 00:00:00 RAKAN 350.1.13.10 it y [place] [id number] [address] 2021-05-01 2021-05-01 Outpatient R GUMARO VIEYRA [facility] [id number] Univers 16:00:00 16:00:00 ity of [facility] 2021-04-24 2021-04-24 Telephone uGmaro Vieyra 1.2.840.11 [id number] Univers 00:00:00 00:00:00 Rakan 350.1.13.10 it y of [place] [id number] [address] 2021-04-01 2021-04-01 Routine Gumaro Vieyra 1.2.840.114 [id number] Univers 16:13:18 16:43:50 Rakan 350.1.13.10 i ty of Visit Women's [place] [id number] [address] 2021-04-01 2021-04-01 Outpatient R GUMARO VIEYRA [facility] [id number] Univers 16:15:00 16:15:00 ity of [facility] 2021-03-25 2021-03-25 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 Faby Arauz Lab Main RUST 1.2.8 40.114 [id number] Univers 16:08:47 16:23:47 Visit Gumaro Vieyra [place] 350.1.13.10 ity of [place] [phone] Ks dical nal 353 [facility] 2021-03-25 2021-03-25 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 Mega[facility] 1.2 .840.114 [id number] Univers 14:34:05 15:34:05 Visit Zahida Meza 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 350.1.13.10 ity of [facility] 4.2.7.2.686 Román as MATERNAL [phone] Med ical & CHILD [address] [place] [address] 2021-03-25 2021-03-25 Outpatient P [facility] [id number] Univers 14:45:00 14:45:00 ity of [facility] 2021-03-25 2021-03-25 Orders Doctor GRISELDA 1.2.840.114 [id number] Univers 00:00:00 00:00:00 Only Unassigned, NATHALIE 350.1.13.10 ity of [place] [facility] 4.2.7.2.686 Román as [id number] [address] 2021-03-13 2021-03-13 Telephone Gumaro Vieyra RUST Laura 1.2.840.11 [id number] Univers 00:00:00 00:00:00 Rakan 350.1.13.10 it y of [place] [id number] [address] 2021-03-04 2021-03-04 Routine Gumaro Vieyra [facility] 1.2.840.114 [id number] Univers 14:32:30 15:16:29 Rakan 350.1.13.10 i ty of Visit Womens 4.2.7.2.686 [facility] [phone] [facility] [address] 2021-03-04 2021-03-04 Outpatient R GUMARO VIEYRA [facility] [id number] Univers 14:30:00 14:30:00 ity of [facility] 2021-03-03 2021-03-03 Outpatient R GUMARO VIEYRA [facility] [id number] Univers 16:00:00 16:00:00 ity [facility] 2021-02-19 2021-02-19 Outpatient R GUMARO VIEYRA [facility] [id number] Univers 08:30:00 08:30:00 ity [facility] 2021-02-19 2021-02-19 Orders Doctor GRISELDA 1.2.840.114 [id number] Univers 00:00:00 00:00:00 Only Unassigned, NATHALIE 350.1.13.10 ity of [place] [facility] 4.2.7.2.686 Román [phone] [facility] [address] 2021-02-03 2021-02-03 Outpatient R GUMARO VIEYRA [facility] [id number] Univers 16:00:00 16:00:00 ity [facility] 2021-01-22 2021-01-22 Outpatient R [facility] [id number] Univers 11:00:00 11:00:00 ity of [facility] 2021-01-21 2021-01-21 Outpatient R [facility] [id number] Univers 14:00:00 14:00:00 ity [facility] 2021-01-20 2021-01-20 Outpatient R GUMARO VIEYRA [facility] [id number] Univers 16:00:00 16:00:00 ity [facility] 2020-12-30 2020-12-30 Outpatient R GUMARO VIEYRA [facility] [id number] Univers 16:00:00 16:00:00 ity [facility] 2020-12-262020-12-26 Outpatient R GUMARO VIEYRA [facility] [id number] Univers 14:45:00 14:45:00 ity of [facility] 2020-12-18 2020-12-18 Outpatient R GUMARO VIEYRA [facility] [id number] Univers 16:00:00 16:00:00 ity of [facility] 2020-12-16 2020-12-16 Outpatient R GUMARO VIEYRA [facility] [id number] Univers 14:30:00 14:30:00 ity of [facility] 2020-11-28 2020-11-28 Patient Po Cheng RUST 1.2.251.702 [id number] Univers 00:00:00 00:00:00 Secure Msg Cam [place] 350.1.13.10 ity [facility] [place] [phone] Ks dic[address] 2020-10-10 2020-10-10 [facility] [id number] Univers 16:00:00 16:00:00 ROCIOMARIA LUISA landaverde o f [facility] 2020-09-10 2020-09-10 Patient Po Cheng RUST 1.2.141.263 [id number] Univers 00:00:00 00:00:00 Secure Msg Cam [place] 350.1.13.10 ity of [facility] 4.2.[place].2.[place] [phone] Ks dical NAL [address] [place] [address] 2020-09-10 2020-09-10 Patient Po Cheng RUST 1.2.474.338 [id number] Univers 00:00:00 00:00:00 Secure Msg Cam [place] 350.1.13.10 ity of [facility] 4.2.[place] [phone] Ks dicwy NAL [address] [place] [address] 2020-09-02 2020-09-02 [facility] [id number] Univers 13:00:00 13:00:00 TERI ity [facility] 2019-11-08 2019-11-08 Outpatient R [facility] [id number] Univers 14:00:00 14:00:00 [facility] 2019-06-21 2019-06-21 Outpatient R PO CHENG [facility] [id number] Univers 14:06:55 23:59:00 [facility] Results Test Description Test Time Test Comments Results Result Comments Source POCT URINALYSIS W/O SPECIFIC GRAVITY 2023-04-16 16:15:00 Test Item Value Reference Range Interpretation Comme nts POCT PH U (test code = 3254) n/a 5-8 POCT U LEUK EST (test code = 3263) n/a Negative - Negative POCT U NIT (test code = 3262) n/a Negative - Negative POCT U PROT (test code = 3259) negative Negative - Negative POCT U GLU (test code = 3256) negative Negative - Negative POCT U KETONE (test code = 3258) n/a Negative - Negative POCT U BLD (test code = 3257) n/a Negative - Negative [facility] [id number] 13:25:00 Test Item Value Reference Range Interpretation Comments POCT PH U (test code = 3254) n/a 5-8 POCT U LEUK EST (test code = n/a Negative - Negative 3263) POCT U NIT (test code = 3262) n/a Negative - Negative POCT U PROT (test code = 3259) negative Negative - Negative POCT U GLU (test code = 3256) negative Negative - Negative POCT U KETONE (test code = 3258) n/a Negative - Negative POCT U BLD (test code = 3257) n/a Negative - Negative [facility]/O SPECIFIC [id number] 19:08:00 Test Item Value Reference Range Interpretation Comments POCT PH U (test code = 3254) n/a 5-8 POCT U LEUK EST (test code = n/a Negative - Negative 3263) POCT U NIT (test code = 3262) n/a Negative - Negative POCT U PROT (test code = 3259) negative Negative - Negative POCT U GLU (test code = 3256) negative Negative - Negative POCT U KETONE (test code = 3258) n/a Negative - Negative POCT U BLD (test code = 3257) n/a Negative - Negative [facility] [id number] 19:07:00 Test Item Value Reference Range Interpretation Comments POCT PREG (test code = 1605) Positive On board controls acceptable with C Yes Line (test code = 3574) POCT PREG LOT # (test code = 3575) POCT PREG TEST DATE (test code = 3576) [facility] [id number] 20:56:00 Test Item Value Reference Range Interpretation Comments POCT PREG (test code = 1605) Negative On board controls acceptable with C Yes Line (test code = 3574) POCT PREG LOT # (test code = 3575) POCT PREG TEST DATE (test code = 3576) [facility] [id number] 19:56:00 Test Item Value Reference Range Interpretation Comments POCT PREG (test code = 1605) Positive On board controls acceptable with C Yes Line (test code = 3574) POCT PREG LOT # (test code = 3575) POCT PREG TEST DATE (test code = 3576) [facility] [id number] 19:58:00 Test Item Value Reference Range Interpretation Comments POCT PREG (test code = 1605) Positive On board controls acceptable with C Yes Line (test code = 3574) POCT PREG LOT # (test code = 3575) POCT PREG TEST DATE (test code = 3576) [facility]
[2023-05-05 21:01] LABS: Specific Gravity 1.011 (1.005-1.030); Urine Bilirubin NEGATIVE (Negative); Urine Blood Negative (Negative); Urine Clarity Clear (Clear); Urine Color Light-Yellow (Yellow); Urine Glucose NEGATIVE (Negative); Urine Protein NEGATIVE (Negative); Urine Urobilinogen Normal (Normal)
[2023-05-05 21:06] LABS: Specific Gravity 1.011 (1.005-1.030)
[2023-05-05 21:55] LABS: Absolute Lymphocytes (CBC) 3.6 K/uL (0.7-4.9); Hematocrit 35.2 % (36.0-45.0); Lymphocytes % 33.3 % (15.3-44.8); MCV 80.5 fL (80-100); MPV 8.2 fL (7.6-11.3); Platelets 301 thou/uL (152-406); Potassium 3.3 mEq/L (3.5-5.1); RBC Red Blood Cell Count 4.37 M/uL (3.86-4.86)
--- NOTE | 2023-05-05 21:56 | RAD REPORT ---
EXAM DESCRIPTION: US - Matter Vlad Tm 1 - 05/05/2023 8:41 pm CLINICAL HISTORY: ABD PAIN COMPARISON: Transvaginal OB dated 01/05/2022 TECHNIQUE: Sonographic grayscale and color flow images of a first-trimester were obtained through transabdominal approach. FINDINGS: A single live intrauterine is identified. Presentation is variable. Placenta is formed posteriorly. Cervical canal is closed. No evidence of pl acenta previa. heart rate: 150 BPM. Amniotic fluid volume subjectively slightly low. biometry: BPD: 2.68 cm, 14 weeks, 5 days HC: 9.88 cm, 14 weeks, 4 days. For the: 3.25 cm. AC: 8.52 cm, 14 weeks, 6 days. FL: 1.59 cm, 14 weeks, 5 days. HL: 1.51 cm, 14 weeks, 1 day. Estimated weight: 105.18 g (4 ounce +/-1 ounce) No free fluid. IMPRESSION: 1. Single live intrauterine . 2. Calculated gestational age: 14 weeks, 1 day. Estimated due date by ultrasound: 10/30/2023. 3. Amniotic fluid volume subjectively slightly low. Please correlate clinically and consider short-te rm follow-up obstetric ultrasound.
--- NOTE | 2023-05-05 22:35 | ER ---
Nurse's Notes [facility] Name: Harsh Blanco Age: 23 yrs Sex: Female : 2000 Arrival Date: 05/05/2023 Time: 19:27 Bed 20 Private MD: Diagnosis: 14 weeks gestation of ;Lower abdominal pain, unspecified Presentation: 05/05 20:03 Chief complaint: Patient states: I am about 13 weeks and have been having ha1 sharp pain on my pelvic area. reports nause. Denies vaginal bleeding. Coronavirus screen: Vaccine status: Patient reports being unvaccinated. Ebola Screen: No symptoms or risks identified at this time. Initial Sepsis Screen: Does the patient meet any 2 criteria? No. Patient's initial sepsis screen is negative. Does the patient have a suspected source of infection? No. Patient's initial sepsis screen is negative. Risk Assessment: Do you want to hurt yourself or someone else? Patient reports no desire to harm self or others. Onset of symptoms was May 05, 2023. 20:03 Method Of Arrival: Ambulatory ha1 20:03 Acuity: FLORINDA 3 ha1 Triage Assessment: 20:08 General: Appears comfortable. General: Behavior is calm, cooperative. Pain: Complains ha1 of pain in pelvis Pain does not radiate. Pain at worst was 9 out of 10 on a pain scale. Neuro: Level of Consciousness is awake, alert, obeys commands, Oriented to person, place, time, situation. Cardiovascular: Capillary refill < 3 seconds Patient's skin is warm and dry. Respiratory: Airway is patent Respiratory effort is even, unlabored, Respiratory pattern is regular, symmetrical. GI: Abdomen is flat, non-distended, Reports lower abdominal pain, nausea. Derm: Skin is pink, warm \T\ dry. 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 - Social history:: Smoking status: Patient denies any tobacco usage or history of. Screenin:10 Abuse screen: Denies threats or abuse. Denies injuries from another. ha1 23:06 [facility] ED Fall Risk Assessment (Adult) History of falling in the last 3 months, ha1 including since admission No falls in past 3 months (0 pts) Score/Fall Risk Level 0 - 2 = Low Risk. Nutritional screening: No deficits noted. Tuberculosis screening: No symptoms or risk factors identified. Assessment: 22:00 Reassessment: Patient and/or family updated on plan of care and expected duration. Pain ha1 level reassessed. Patient is alert, oriented x 3, equal unlabored respirations, skin warm/dry/pink. 23:03 Reassessment: Patient and/or family updated on plan of care and expected duration. Pain ha1 level reassessed. Patient is alert, oriented x 3, equal unlabored respirations, skin warm/dry/pink. Vital Signs: 20:03 BP 126 / 68; Pulse 85; Resp 18 S; Temp 98.1; Pulse Ox 100% on R/A; Weight 61.23 kg; ha1 Height 5 ft. 2 in. ; 21:13 BP 108 / 63; Pulse 57; Resp 18; Pulse Ox 100% ; Weight 61.23 kg; Height 5 ft. 2 in. ; ls5 Pain 0/10; 22:00 BP 112 / 60; Pulse 60; Resp 18 S; Pulse Ox 100% on R/A; ha1 23:03 BP 110 / 65; Pulse 61; Resp 17 S; Pulse Ox 100% on R/A; ha1 21:13 Body Mass Index 24.69 (61.23 kg, 157.48 cm) ls5 21:13 Pain Scale: Adult ls5 ED Course: 19:32 Patient arrived in ED. gm2 19:34 Vonda Bledsoe FNP-C [facility] kb 19:34 Del Andrade MD is Attending Physician. kb 20:08 Triage completed. ha1 20:43 Matter Eval Tm 1 In Process Unspecified. EDMS 21:06 Inserted saline lock: 22 gauge in right antecubital area, using aseptic technique. ls5 Blood collected. 21:07 Urine collected: clean catch specimen, clear. ls5 21:30 Patient has correct armband on for positive identification. Bed in low position. Call ha1 light in reach. Side rails up X 1. Adult w/ patient. 23:05 No provider procedures requiring assistance completed. IV discontinued, intact, ha1 bleeding controlled, No redness/swelling at site. Pressure dressing applied. 23:05 Arm band placed on right wrist. ha1 23:06 Provided Education on: follow up with OB . ha1 Administered Medications: No medications were administered Medication: 23:06 VIS not applicable for this client. ha1 Outcome: 22:35 Discharge ordered by MD. florez 23:06 Discharged to home ambulatory, with family, ha1 23:06 Condition: stable 23:06 Discharge instructions given to patient, family, Instructed on discharge instructions, follow up and referral plans. Demonstrated understanding of instructions, follow-up care, 23:07 Patient left the ED. ha1 Signatures: Dispatcher [employer] EDMS Vonda Bledsoe, VIOLIN RESTORER-C JANICE-Anusha Linn RN RN ha1 Mrak Garza ls5 Mayra Lovell gm2
--- NOTE | 2023-05-05 22:35 | EDPHYS ---
Physician Documentation [facility] Name: Hrash Blanco Age: 23 yrs Sex: Female : 2000 Arrival Date: 05/05/2023 Time: 19:27 Bed 20 Private MD: ED Physician Del Andrade HPI: 05/05 22:57 This 23 yrs old Female presents to ER via Ambulatory with complaints of kb Abdominal Pain, 13 WEEKS PREG. 22:57 The patient presents to the emergency department with abdominal pain, of the suprapubic kb area. The estimated gestational age is 13 weeks. course: care: private OB physician. Previous pregnancies: in previous pregnancies patient has had. Associated signs and symptoms: Pertinent positives: abdominal pain, Pertinent negatives: vaginal bleeding. The patient has not experienced similar symptoms in the past. The patient has not recently seen a physician. 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 - Social history:: Smoking status: Patient denies any tobacco usage or history of. ROS: 22:56 Constitutional: Negative for fever, chills, and weight loss, kb 22:56 Abdomen/GI: Positive for abdominal pain, nausea, 22:56 All other systems are negative, Exam: 22:08 Constitutional: This is a well developed, well nourished patient who is awake, alert, kb and in no acute distress. Head/Face: Normocephalic, atraumatic. ENT: Moist Mucous membranes Cardiovascular: Regular rate Respiratory: Respirations even and unlabored. No increased work of breathing. Talking in full sentences Abdomen/GI: Soft, non-tender. No distention Skin: Warm, dry with normal turgor. Normal color. MS/ Extremity: Pulses equal, no cyanosis. Neurovascular intact. Full, normal range of motion. Neuro: Awake and alert, GCS 15, oriented to person, place, time, and situation. Moves all extremities. Normal gait. 22:08 ECG was reviewed by the Attending Physician. Vital Signs: 20:03 BP 126 / 68; Pulse 85; Resp 18 S; Temp 98.1; Pulse Ox 100% on R/A; Weight 61.23 kg; ha1 Height 5 ft. 2 in. ; 21:13 BP 108 / 63; Pulse 57; Resp 18; Pulse Ox 100% ; Weight 61.23 kg; Height 5 ft. 2 in. ; ls5 Pain 0/10; 22:00 BP 112 / 60; Pulse 60; Resp 18 S; Pulse Ox 100% on R/A; ha1 23:03 BP 110 / 65; Pulse 61; Resp 17 S; Pulse Ox 100% on R/A; ha1 21:13 Body Mass Index 24.69 (61.23 kg, 157.48 cm) ls5 21:13 Pain Scale: Adult ls5 MDM: 19:35 Patient medically screened. kb 22:56 Data reviewed: vital signs, nurses notes. kb 22:57 Differential diagnosis: threatened Ab, inevitable Ab, uti. Counseling: I had a detailed kb discussion with the patient and/or guardian regarding the historical points, exam findings, and any diagnostic results supporting the discharge/admit diagnosis, lab results, radiology results, the need for outpatient follow up, an OB/Gyne specialist, to return to the emergency department if symptoms worsen or persist or if there are any questions or concerns that arise at home. ED course: pt has had no vaginal bleeding, rhogam not indicated. 05/05 20:06 Order name: Abo/rh Typing; Complete Time: 22:07 kb 05/05 20:06 Order name: Basic Metabolic Panel; Complete Time: 22:13 kb 05/05 20:06 Order name: CBC with Diff; Complete Time: 22:03 kb 05/05 20:06 Order name: Test, Urine; Complete Time: 21:15 kb 05/05 20:06 Order name: Quantitative Hcg; Complete Time: 22:13 kb 05/05 20:06 Order name: Urinalysis w/ reflexes; Complete Time: 21:04 kb 05/05 20:43 Order name: Matter Eval Tm 1; Complete Time: 22:03 EDMS 05/05 20:06 Order name: EKG; Complete Time: 20:07 kb 05/05 20:06 Order name: IV Saline Lock; Complete Time: 21:07 kb 05/05 20:06 Order name: Labs collected and sent; Complete Time: 21:07 kb 05/05 20:06 Order name: NPO; Complete Time: 21:23 kb 05/05 20:06 Order name: EKG - Nurse/Tech; Complete Time: 21:42 kb EC:08 Rate is 60 beats/min. Rhythm is regular. QRS [place] is Normal. ID interval is normal at kb 138 msec. QRS interval is normal at 82 msec. QT interval is normal at 396 msec. Administered Medications: No medications were administered Disposition Summary: 05/05/23 22:35 Discharge Ordered Notes: Location: Home kb Condition: Stable kb Diagnosis - 14 weeks gestation of kb - Lower abdominal pain, unspecified kb Followup: kb - With: Emergency Department - When: As needed - Reason: Worsening of condition Followup: kb - With: Private Physician - When: 2 - 3 days - Reason: Recheck today's complaints, Continuance of care, Re-evaluation by your physician Discharge Instructions: - Discharge Summary Sheet kb - Second Trimester of , [id number] kb Forms: - Medication Reconciliation Form kb - Thank You Letter kb - Antibiotic Education kb - Prescription Opioid Use kb - Patient Portal Instructions kb - Leadership Thank You Letter kb Addendum: 05/10/2023 10:11 I was immediately available for consultation during this patient's visit. I did not e c2 personally see the patient or guide the patient's care. . Signatures: Dispatcher [employer] [facility] Vonda Bledsoe, JANICE-C VISUAL COMMUNICATIONS INSTRUCTOR-Anusha Linn, RN RN ha1 Del Andrade MD MD ec2 Corrections: (The following items were deleted from the chart) 05/05 20:43 20:06 Transvaginal Ob+US.RAD.BRZ ordered. [facility] 22:56 22:56 Abdomen/GI: Positive for abdominal pain, kb kb
[2023-05-05 23:11] VITALS: TEMP 98.1; O2SAT 100
[2023-05-05 23:15] VITALS: BP 110/65
--- NOTE | 2023-05-06 09:46 | EKG ---
Test Date: 2023-05-05 Test Time: 21:33:01 Assistant Manager Bilingual: ZAC MEASUREMENT RESULTS: Intervals: Rate: 60 DE: 138 QRSD: 82 QT: 396 QTc: 396 [place]: P: 58 DE: 138 QRS: 80 T: 63 INTERPRETIVE STATEMENTS: Normal sinus rhythm Normal ECG Compared to ECG 03/18/2011 16:13:39 No significant changes Electronically Signed On 05-06-23 09:45:11 CDT by Venkata Williamson
== END 2023-05-05 23:07 | disposition home or self-care (01) ==
LOC: ER 19:27
DX: O26.892 Other specified pregnancy related conditions, second trimester (principal); Z3A.14 14 weeks gestation of pregnancy
CPT/HCPCS: 36415; 76801; 80048; 81003; 81025; 84702; 85025; 86900; 86901; 93005; 99284